=== PATIENT | male | born 1980 | race Caucasian/White ===

== ENCOUNTER → 2021-11-23 14:45 | Outpatient (CLI) | payer BC, SELFPAY ==
--- NOTE | 2021-11-23 14:53 | CT_ITS ---
FINAL REPORT TECHNIQUE: Thin section axial CT images of the facial bones and sinuses were obtained without contrast. Coronal reformatted images were also obtained. This study was performed with techniques to keep radiation doses as low as reasonably achievable, (ALARA). Individualized dose reduction techniques using automated exposure control or adjustment of mA and/or kV according to the patient's size were employed. CLINICAL HISTORY: SINUSITIS,PEREZ, FINDINGS: CT SINUSES There is mild mucosal thickening in the left maxillary sinus and a left ethmoid air cell. No fluid levels are identified. The left ostiomeatal unit has an unremarkable appearance. There is soft tissue of the right maxillary ostium. There is mild left nasal septal deviation. No fracture or acute bony abnormality is identified. IMPRESSION: Mild sinusitis as described. Reviewed, Interpreted and Dictated by Mo Hernandez III, MD Transcribed by Wendy Freed Authenticated by Mo Hernandez III, MD on 11/23/2021 04:14:47 PM [facility]
== END ==
PROVIDERS: PCP Nurse Practitioner Family; Visit Provider Nurse Practitioner Family
DX: R51.9 Headache, unspecified (principal); J32.9 Chronic sinusitis, unspecified
CPT/HCPCS: 70486

== ENCOUNTER 2023-10-12 10:29 | Outpatient (CLI) | payer BC, SELFPAY ==
--- NOTE | 2023-10-12 10:32 | MR_ITS ---
FINAL REPORT CLINICAL HISTORY: SYNCOPE ANS COLLASPE COMPARISON: None FINDINGS: Multiplanar MR imaging of the brain was performed without and with contrast. There is no evidence of intracranial hemorrhage or mass. No abnormal extra-axial fluid collection is seen. The ventricular size is within normal limits. There is no evidence of shift of the midline structures. The posterior fossa and brainstem have an unremarkable appearance. No area of abnormal restricted diffusion is identified. No abnormal contrast enhancement is seen. Normal major vessel vascular flow voids are noted. IMPRESSION: No acute intracranial abnormality identified. Reviewed, Interpreted and Dictated by Kristian Taveras MD Transcribed by Eleonora Curry Authenticated and [facility]
[2023-10-12] MEDS: GADOTERIDOL INJ 17ML SYRINGE 20 ML IV (12:31)
== END 2023-10-12 23:59 ==
PROVIDERS: PCP Nurse Practitioner Family; Visit Provider Nurse Practitioner Family
DX: R55 Syncope and collapse (principal)
CPT/HCPCS: 70553; A9576

== ENCOUNTER 2023-11-23 07:47 | Outpatient (CLI) | payer BC, SELFPAY ==
--- NOTE | 2023-11-23 08:20 | US_ITS ---
FINAL REPORT CLINICAL HISTORY: GERD,DISEASE W/ESOPHAGITIS COMPARISON: None FINDINGS: Sonographic images of the abdomen were obtained. The liver has an unremarkable appearance with normal echogenicity. The gallbladder has an unremarkable appearance without evidence of gallstones. Nonspecific mild gallbladder wall thickening is present. There is no evidence of biliary ductal dilatation. The common hepatic duct measures 3 mm, which is within normal limits. The pancreas is not well-visualized. The spleen size is normal. The right kidney measures 10.4 in length. The left kidney measures 11.8 in length. There is normal renal echogenicity. There is no evidence of hydronephrosis. The aorta has an unremarkable appearance. Limited images of the inferior vena cava are unremarkable. IMPRESSION: Nonspecific gallbladder wall thickening, mild, without evidence of biliary ductal dilatation or gallstones. Pancreas not well-visualized. Reviewed, Interpreted and Dictated by Mo Hernandez III, MD Transcribed by Eleonora Curry Authenticated and [facility]
== END 2023-11-23 23:59 ==
LOC: RAD 07:47
PROVIDERS: PCP Nurse Practitioner Family; Visit Provider Nurse Practitioner Family
DX: R10.9 Unspecified abdominal pain (principal); K21.00 Gastro-esophageal reflux disease with esophagitis, without bleeding
CPT/HCPCS: 76700

== ENCOUNTER 2024-04-10 10:06 | Day surgery (SDC) | payer BC, SELFPAY ==
--- NOTE | 2024-03-26 15:51 | SUR.PREOP ---
Called to confirm appointment. No answer, left voicemail with callback number
[2024-04-08 13:30] VITALS: BMI 28.1
[2024-04-10] VITALS (7 sets, daily range): BP systolic 122–137; BP diastolic 82–87; PULSE 69–101; RESP 18; TEMP 36.5–36.6; O2SAT 96–99; BMI 28.1
--- NOTE | 2024-04-10 12:04 | P.PNANES_ITS ---
[facility] Disclaimer: The information contained in this section may have been updated after the patient was seen, as this information can be updated by other users. Medical History Anxiety History of COVID-19 Migraine Allergies Surgical History History of facial surgery Family History Grandfather Cancer Other Heart disease Social History Smoking Status: Former smoker tobacco type: cigarettes packs per day: 2 smoking status start date: June 2023 years smoked: 25 second hand exposure: Yes alcohol intake: current alcohol intake frequency: a few times a month substance use type: denies use current occupational status: employed Travel in the last 8 weeks: None household members: family housing: house marital status: caffeine: Yes physical activity: walking do you feel safe at home: Yes victim of physical abuse: No victim of emotional abuse: No victim of sexual abuse: No would you like helpful sources: No [facility] Anesthesia Checklist Patient Identification Patient Identification: Arm Band Structural Data Admitted From: Home Planned Operative Procedure/s: EGD/Colonoscopy Consent for Planned Operative Procedure(s) Verified: Yes Verified Documents: Surgical Consent and History and Physical NPO Status Verified Time NPO: 00:00 Additional verifications Anesthesia Reactions: No Airway Assessment Mallampati Score:: Class I C-Spine Mobility Assessed: Yes TMJ Mobility Assessed: Yes Dentition: Good Dentition Neurological Assessment Level of Consciousness: Awake, Alert and Appropriate Anesthesia Plan Anesthesia Risk discussed: Yes Anesthesia Plan: Verified ASA Class: II Anesthesia Type: MAC
--- NOTE | 2024-04-10 12:19 | EXP.ANES.CKL ---
[facility] Disclaimer: The information contained in this section may have been updated after the patient was seen, as this information can be updated by other users. Medical History Anxiety History of COVID-19 Migraine Allergies Surgical History History of facial surgery Family History Grandfather Cancer Other Heart disease Social History Smoking Status: Former smoker tobacco type: cigarettes packs per day: 2 smoking status start date: June 2023 years smoked: 25 second hand exposure: Yes alcohol intake: current alcohol intake frequency: a few times a month substance use type: denies use current occupational status: employed Travel in the last 8 weeks: None household members: family housing: house marital status: caffeine: Yes physical activity: walking do you feel safe at home: Yes victim of physical abuse: No victim of emotional abuse: No victim of sexual abuse: No would you like helpful sources: No [facility] Anesthesia Checklist Patient Identification Patient Identification: Arm Band Structural Data Admitted From: Home Planned Operative Procedure/s: EGD/Colonoscopy Consent for Planned Operative Procedure(s) Verified: Yes Verified Documents: Surgical Consent and History and Physical NPO Status Verified Time NPO: 00:00 Additional verifications Anesthesia Reactions: No Airway Assessment Mallampati Score:: Class II C-Spine Mobility Assessed: Yes TMJ Mobility Assessed: Yes Dentition: Good Dentition Neurological Assessment Level of Consciousness: Awake, Alert and Appropriate Anesthesia Plan Anesthesia Risk discussed: Yes Anesthesia Plan: Verified ASA Class: II Anesthesia Type: MAC
--- NOTE | 2024-04-10 12:38 | HMH.SCOPE ---
Procedure: Date: 04/10/24 Patient Date of :: 1980 Procedure Performed:: EGD Indications:: The patient is a 44-year-old with chronic heartburn and diarrhea Performing Provider:: Erlin Ching MD Referring Provider:: Sandra Villa APRN Sedation:: See RN records Procedure:: The gastroscope was gently passed through the incisoral orifice into the oral cavity and under direct visualization the esophagus was intubated. The endoscope was passed down the esophagus, through the stomach, and into the duodenum. Color, texture, mucosa, and anatomy of the esophagus, stomach, and duodenum were carefully examined with the scope. Findings:: The Z-line was measured at 41 cm. There was a mild distal esophagitis, LA class A, biopsies were obtained with cold forceps for histology from the mid and distal esophagus. There was a small hiatal hernia. There was mild inflammation of the stomach characterized by erythema. Biopsies were obtained with a cold forceps for histology. The duodenum appeared normal. Biopsies were obtained with a cold forceps for histology. Recommendations:: Await pathology results Use PPIs or H2RA medications as needed Follow-up in office with referring provider as previously scheduled Complications:: None Estimated blood obtained (mL): 0 Colonoscopy Component Colonoscopy Component Was a colonoscopy performed during today's procedure?: No
--- NOTE | 2024-04-10 12:41 | HMH.SCOPE ---
Procedure: Date: 04/10/24 Patient Date of :: 1980 Procedure Performed:: Colonoscopy Indications:: The patient is a 44-year-old who presents for colonoscopy evaluation of diarrhea. The patient has had diarrhea symptom for several months. The patient has had intermittent blood per rectum. Performing Provider:: Erlin Ching MD Referring Provider:: Sandra Villa APRN Sedation:: See RN records Procedure:: After placing the patient in the left lateral decubitus position, the colonoscopy was gently inserted into the rectum and under direct visualization advanced to the cecum which was identified by transillumination in the right lower quadrant, identification of the ileocecal valve, appendiceal orifice, and cecal strap. Color, texture, mucosa, and anatomy of the colon were carefully examined with the scope. Findings:: The quality of the bowel preparation was good. The patient tolerated the procedure well. There were patchy areas of colitis in the distal sigmoid colon. There was continuous colitis extending from the distal descending colon to the splenic flexure. This was characterized by erythema and loss of normal vascular pattern, and few scattered erosions. Biopsies were obtained with a cold forceps for histology. The remaining colon appeared normal. The terminal ileum could not be intubated secondary to looping within the sigmoid colon. On retroflexion view of the rectum internal hemorrhoids were noted. Impression: Colitis Recommendations:: Await pathology results Avoid NSAIDs Follow-up in office with referring provider as previously scheduled Complications:: None Estimated blood obtained (mL): 0 Colonoscopy Component Colonoscopy Component Was a colonoscopy performed during today's procedure?: Yes Recommended follow up colonoscopy of at least 10 years?: Yes
== END 2024-04-10 13:10 | disposition home or self-care (01) ==
PROVIDERS: PCP Nurse Practitioner Family; Visit Provider Internal Medicine
PROC: 0DJ08ZZ Inspection of Upper Intestinal Tract, Via Natural or Artificial Opening Endoscopic (ICD-10-PCS; CPT 43235; principal; 2024-04-10 11:30)
DX: R19.7 Diarrhea, unspecified (principal); K21.9 Gastro-esophageal reflux disease without esophagitis; K44.9 Diaphragmatic hernia without obstruction or gangrene
CPT/HCPCS: 43239; 45380; J2704

== ENCOUNTER 2025-02-26 09:17 | Outpatient (CLI) | payer BC, SELFPAY ==
--- OUTSIDE RECORDS SUMMARY | 2025-02-26 09:20 | XMS_ITS | Encounter Summary ---
Author Organization Healthcare Address [address] 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, subsequent encounter (Primary Dx) Social History Tobacco Use Types Packs/Day Years Used Date Smoking Tobacco: Never Assessed Sex and Gender Information Value Date Recorded Sex Assigned at Male 07/13/2023 1:36 PM EDT Legal Sex Male 3:31 PM EDT Gender Identity Male 07/13/2023 1:36 PM EDT Sexual Orientation Not on file documented as of this encounter Plan of Treatment Not on file documented as of this encounter Visit Diagnoses Diagnosis 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
--- OUTSIDE RECORDS SUMMARY | 2025-02-26 09:20 | XMS_ITS | Clinical Summary ---
Author Organization Healthcare Address [address] [place] [address] Care Team Providers Care Porter Head Name Role Phone MessiXimena Jordi MEJÍA Primary Care Provider + [phone] Allergies No known active allergies Medications loratadine (Claritin) 10 MG tablet Take 1 tablet (10 mg) by mouth 1 (one) time each day. Active buPROPion (Wellbutrin) 75 MG tablet Take 50 mg by mouth 2 (two) times a day. Active rosuvastatin (Crestor) 20 MG tablet Take 1 tablet (20 mg) by mouth every night. Active Active Problems Problem Noted Date Diagnosed Date Injury of face 07/07/2023 Family History Medical History Relation Name Comments Anesthesia problems Neg Hx Malig Hyperthermia Neg Hx Social History Tobacco Use Types Packs/Day Years Used Date Smoking Tobacco: Every Day Cigarettes Smokeless Tobacco: Never Tobacco Cessation:Ready to Q uit: Not Asked; Counseling Given: Not Answered Comments:Trying to quit, down to about 10 cigs a day. Smoked about 2 ppd for 25 years. Alcohol Use Standard Drinks/Week Comments Never 0 (1 standard drink = 0.6 oz pur e alcohol) Sex and Gender Information Value Date Recorded Sex Assigned at Male 07/13/2023 1:36 PM EDT Legal Sex Male 3:31 PM EDT Gender Identity Male 07/13/2023 1:36 PM EDT Sexual Orientation Not on file Last Filed Vital Signs Vital Sign Reading Time Taken Comments Blood Pressure 126/84 07/19/2023 10:41 AM EDT Pulse 85 07/19/2023 10:41 AM EDT Temperature 36.7 C (98 F) 07/13/2023 8:00 PM EDT Respiratory Rate 17 07/13/2023 8:45 PM EDT Oxygen Saturation 96% 07/13/2023 8:45 PM EDT Inhaled Oxygen Concentration - - Weight 90.7 kg (200 lb) 07/19/2023 10:41 AM EDT Height 190.5 cm (6' 3 ) 07/19/2023 10:41 AM EDT Body Mass Index 25 07/19/2023 10:41 AM EDT Plan of Treatment Health Maintenance Due Date Last Done Comments [facility]-Depression Screening 1980 [facility]-HIV Screening 1980 [facility]-Hepatitis C Screening 1980 [facility]-/Child/Adol SDOH Screenings 1981 [facility]-Varicella Vaccines (1 of 2 - 13+ 2-dose series) 1994 HPV Vaccines (1 - Male 3-dose series) 1996 [facility]- SDOH Screenings 1999 [facility]-Adult SDOH Screenings 1999 [facility]-DTaP,Tdap,and Td Vaccines (1 - Tdap) 2000 [facility]-Hepatitis B Vaccines (1 of 3 - 19+ 3-dose series) 2000 [id number] Vaccine (4 - 2023- season) 2024 10/24/2022, 05/12/2021, 04/21/2021 [facility]-Influenza Vaccine (Season Ended) 2025 06/28/2023, 10/24/2022 [facility]-Zoster Vaccines (1 of 2) 2031 [facility]-HIB Vaccines Aged Out No longer e ligible based on patient's age to complete this topic [facility]-Hepatitis A Vaccines Aged Out No longer eligible based on patient's age to complete this topic [facility]-IPV Vaccines Aged Out No longer e ligible based on patient's age to complete this topic [facility]-Pneumococcal Vaccine: Pediatrics (0 to 5 Years) and At-Risk Patients (6 to 49 Years) Aged Out No longer eligible b ased on patient's age to complete this topic [facility]-Rotavirus Vaccines Aged Out No lo nger eligible based on patient's age to complete this topic Medical Devices Implanted Type Area Commissary Superintendent Device Identifier Shelf Expiration Date Model / Serial / Lot Plate Matric Orbital Rim Plate 12 Holes 0.5mm - [id number] Implanted:Qty: 1 on 07/13/2023 by Tawanda Lucero MD at [facility] Left: [employer] [id number] 07/13/2024 [id number] / / Plate Matric Orbital Rim Plate 12 Holes 0.7mm - [id number] Implanted:Qty: 1 on 07/13/2023 by Tawanda Lucero MD at [facility] Left: [employer] [id number] / / Plate Matric Oblique L-Pl 3x4 Holes-Left/0.7 mm - [id number] Implanted:Qty: 1 on 07/13/2023 by Tawanda Lucero MD at [facility] Left: [employer] [id number] / / Screw Matrix Self-Drill 5mm - [id number] Implanted:Qty: 13 on 07/13/2023 by Tawanda Lucero MD at [facility] Left: [employer] [id number] .01 / / Screw Matrix Emergency Screw 5mm - [id number] Implanted:Qty: 1 on 07/13/2023 by Tawanda Lucero MD at [facility] Left: [employer] [id number] [id number] .01 / / Explanted Type Area Commissary Superintendent Device Identifier Shelf Expiration Date Model / Serial / Lot Screw Matrix Emergency Screw 5mm - [id number] Explanted:Qty: 1 on 07/13/2023 at [facility] Left: [employer] [id number] .01 / / Insurance JENNY Care Teams Porter Head Relationship Specialty Start Date End Date Ximena Swenson APRN [address] [place] [address] PCP - General 07/07/23
[2025-02-26 09:54] LABS: Basophils % 0.2 % (0.1-2.0); Eosinophils # 0.1 Kmm3 (0.0-0.4); Eosinophils % 0.8 % (0.1-12.0); Hemoglobin 14.7 g/dL (14.1-18.0); Immature Granulocytes # 0.01 10^3uL; Immature Granulocytes % 0.2 %; Lymphocytes # 1.2 K/mm3 (0.7-4.5); Lymphocytes % 19.8 % (10-50); Mean Corpuscular HGB Conc 34.2 g/dL (31.8-35.4); Mean Corpuscular Hemoglobin 31.3 pg (27.0-31.2); Mean Corpuscular Volume 91.5 fl (80-94); Mean Platelet Volume 10.3 fl (7.4-10.4); Monocytes # 0.5 K/mm3 (0.1-1.0); Monocytes % 8.4 % (1.7-9.3); Neutrophils # 4.3 K/mm3 (1.8-7.8); Neutrophils % 70.6 % (37.0-80.0); Nucleated Red Blood Cells # 0 10^3/uL; Nucleated Red Blood Cells % 0 %; Platelet Count 213 K/mm3 (142-424); Red Cell Distribution Width 13.2 % (11.5-17.5); Red Cell Distribution Width-SD 44.1 fL; White Blood Count 6.1 K/mm3 (4.8-10.8)
[2025-02-26 10:36] LABS: Alanine Aminotransferase 22 U/L (12-78); Albumin Level 4.6 g/dl (3.5-5.0); Albumin/Globulin Ratio 1.8 (1.1-1.8); Alkaline Phosphatase 71 U/L (38-126); Anion Gap 10.3 mEq/L (5-15); Aspartate Amino Transferase 28 U/L (17-59); Bilirubin,Total 0.7 mg/dl (0.2-1.3); Blood Urea Nitrogen 17 mg/dl (9-20); Calcium 9.4 mg/dl (8.4-10.2); Carbon Dioxide 26 mmol/L (22.0-30.0); Chloride 106 mmol/L (98-107); Estimated Glomerular Filt Rate 92 ml/min (>60); GFR (African American) 111 ML/MIN (>60); Globulin 2.5 g/dL (1.3-3.2); Glucose 105 mg/dl (74-100); Potassium 4.3 mmoL/L (3.5-5.1); Sodium 138 mmol/L (136-145); Total Protein,Serum 7.1 g/dl (6.3-8.2)
[2025-02-26 10:48] LABS: C-Reactive Protein < 0.3 mg/L (0-4)
[2025-02-26 10:55] LABS: 25-OH Vitamin D, Total 43.4 ng/mL (30-100)
[2025-02-26 10:58] LABS: Erythrocyte Sedimentation Rate 12 mm/hr (0-15)
[2025-02-26 11:11] LABS: Ferritin 8.42 ng/ml (17.9-464)
[2025-02-26 11:24] LABS: Iron 71 ug/dL (49-181)
[2025-02-26 11:26] LABS: Vitamin B12 757 pg/mL (239-931)
[2025-02-26 11:33] LABS: Total Iron Binding Capacity 398 ug/dL (261-462)
== END 2025-02-26 23:59 | disposition home or self-care (01) ==
LOC: LAB 09:17
PROVIDERS: PCP Nurse Practitioner Family; Visit Provider Nurse Practitioner Family
DX: K50.911 Crohn's disease, unspecified, with rectal bleeding (principal)
CPT/HCPCS: 36415; 80053; 82306; 82607; 82728; 83540; 83550; 85025; 85651; 86140; 86256; 86671

== ENCOUNTER 2025-02-28 16:08 | Outpatient (CLI) | payer BC, SELFPAY ==
--- OUTSIDE RECORDS SUMMARY | 2025-02-28 16:10 | XMS_ITS | Encounter Summary ---
Author Organization Healthcare Address [address] [place] [address] Care Team Providers Care Ground Crew Supervisor Name Role Phone Ximena Swenson APRN Primary Care Provider + Encounter Details Date Type Department Care Team (Late st Contact Info) Description 06/27/2023 Community Orders Community Practice [address] [place] [address] Ximena Swenson APRN [address] [phone] (Fax) Closed fracture of maxillary sinus with [...] Primary documented in this encounter Care Teams Ground Crew Supervisor Relationship Specialty Start Date End Date Ximena Swenson APRN [address] [place] [address] (Fax) PCP - General 07/07/23 documented as of this encounter
--- OUTSIDE RECORDS SUMMARY | 2025-02-28 16:10 | XMS_ITS | Data Portability ---
Author Organization [facility] LAURITA ClarkS [place] Address [address] [place] [address] Care Team Providers Care News Writer Name Role Phone SARAH PIERCE Primary Care Provider [phone] YULIET DIALLO Repair Tech Assessment No assessment recorded. 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 Referral None recorded. Procedures None recorded. Surgeries None recorded. Imaging holter monitor 2022 023 [email or web address] [facility] [address], [facility], [place], [address], 09/15/2023 08:58:25 US, carotid artery 2022 023 [email or web address] [facility] Cardiology [address], [place], [address], 09/28/2023 07:49:58 US, doppler echocardi ogram 2022 023 [email or web address] [facility] [address] , [place], [address], 09/21/2023 07:55:52 Medication Orders rizatript an 10 mg disintegr ating tablet 2022 023 JAYNE [facility]walker [facility], [address], [address], 08/07/2023 15:13:26 Patient TargetsNo targets recorded. Patient Instructions Encounter Date Encounter Id Patient Instructions Last Modified By Organization Details Last Modified Time 08/07/[id number], tripta n therapy, cardiology referral petey Not available 08/07/2023 15:12:23 09/14/2023 [id number] [facility] Patient Instructions Not available 09/14/2023 10:28:39 body mass index: care instructions Not available 09/14/2023 10:31:53 Heart Station Patient Instructions Not available 09/14/2023 10:28:39 Follow up in 2 months, sooner with questions/concern s or abnormalities noted on above testing. Not available 09/14/2023 17:58:49 11/15/2023 [id number] body mass index: care instructions Not available 11/15/2023 11:32:21 high cholesterol : care instructions Not available 11/15/2023 11:32:21 Follow up in 1 year with EKG/Echo Not available 11/15/2023 11:32:20 Reason for Referral None Reported. Results Created Date Observation Date Name Description Value Unit Range Abnormal Flag Note LastModifiedBy Organization Detail LastModifiedTime 08/14/2008/14/2023 CT, sinus es, w/o contr ast [place] [facility] [address] [facility], [address] [address] Kyle benitez Name: ROSAURA benitez : 981 Kyle benitez 46 Orderi ng Provid er: JOY Y V OSETIN SALOMÓN EXAM DATE: 2022 EXAM: CT CONE BEAM SINUS W/O CONTRA ST HISTOR Y: 43-yea r-old male with chroni c sinusi tis. COMPAR DARIUSZ: None. TECHNI QUE: Cone beam images were obtain ed of the sinuse s, with 1 mm and 3 mm axial, maldonado l, and sagitt al recons tructi on images . FINDIN GS: Maxill yolanda sinuse s: There is a 1.7 cm mucous retent ion cyst along the floor of the left maxill yolanda sinus, and mild to modera te mucosa l thicke catracho along the roof of the left maxill yolanda sinus. There is a small mucous retent ion cyst or focal mucosa l thicke catracho adjace nt to the left maxill yolanda antrum . There are postsu rgical change s with a plate along the latera l wall the left maxill yolanda sinus which may indica te a prior fractu re fixati on. There is focal mucosa l thicke catracho or a small mucous retent ion cyst adjace nt to the right maxill yolanda antrum . Ostia: The left and right osteom eatal units are obstru cted. There are patent second yolanda antra along the medial wall the maxill yolanda sinuse s. The fronta l and spheno id sinus ostia are patent . Ethmoi d sinuse s: There is focal mucosa l thicke catracho or small mucous retent ion cyst in the right ethmoi d sinus. The left ethmoi d sinus is clear. Fronta l sinuse s: The fronta l sinuse s are clear. Spheno id sinuse s: The spheno id sinuse s appear clear. Nasal septum and nasal passag es: The nasal septum is deviat ed to the left inferi frandy and deviat ed to the right anteri frandy. There is modera te mucosa l hypert rophy of the nasal turbin ates. The visual ized mastoi d air cells appear normal . There are mild to modera te degene rative change s in the tempor omandi bular joints . IMPRES CELIA: 1. There is focal mucosa l thicke catracho or small mucous retent ion cyst adjace nt to the maxill yolanda antra bilate rally with obstru ction of the ostiom eatal units. There is also mild to modera te mucosa l thicke catracho and a mucous retent ion cyst in the left maxill yolanda sinus, and second yolanda ostia along the medial wall the maxill yolanda sinuse s. 2. There is nasal septal deviat ion to the left and right, and modera te mucosa l hypert rophy of the nasal turbin ates. 3. There is focal mucosa l thicke catracho or a small mucous retent ion cyst in the right ethmoi d sinus. Interp reted By: David irizarry MD Electr onical ly Signed By: David irizarry MD on 2022 10:57 AM [email or web address] [facility] [address] [facility] [address], [place], [address], 08/15/2023 09:52:00 09/15/20 23 09/14/2023 elect rocar diogr am No observ ation record ed. BARCODE Not Available 2022 11:42:47 10/05/19 24 10/05/2023 gatito r monit or No observ ation record ed. JAYNE Not Available 2023 15:01:35 10/30/19 24 10/30/2023 exerc ise stres s test No observ ation record ed. JAYNE Not Available 2023 06:43:10 10/30/19 24 10/30/2023 US, doppl er echoc ardio gram, w/ color flow No observ ation record ed. JAYNE [facility] [address], [place], [address], 10/31/2023 06:51:51 10/30/19 24 10/30/2023 cardi ac stres s test No observ ation record ed. JAYNE Hopkins MD [address] [place] [address], [place], [address], 10/31/2023 06:48:20 01/16/20 25 01/15/2025 US, doppl er echoc ardio gram, w/ color flow No observ ation record ed. JAYNE [facility] [address], [place], [address], 01/23/2025 22:45:26 Result Notes Documentation Provider Name and Address Organization Details Recorded Time Ct, Sinuses, W/o Contrast : [place] [facility] [address] [facility], [address] [place] [address] Patient Name: MAUREEN HSU Patient : [id number] Patient Ordering Provider: CARO BANKS EXAM DATE: 08/14/2023 EXAM: CT CONE BEAM SINUS W/O CONTRAST HISTORY: 43-year-old male with chronic sinusitis. COMPARISON: None. TECHNIQUE: Cone beam images were obtained of the sinuses, with 1 mm and 3 mm axial, coronal, and sagittal reconstruction images. FINDINGS: Maxillary sinuses: There is a 1.7 cm mucous retention cyst along the floor of the left maxillary sinus, and mild to moderate mucosal thickening along the roof of the left maxillary sinus. There is a small mucous retention cyst or focal mucosal thickening adjacent to the left maxillary antrum. There are postsurgical changes with a plate along the lateral wall the left maxillary sinus which may indicate a prior fracture fixation. There is focal mucosal thickening or a small mucous retention cyst adjacent to the right maxillary antrum. Ostia: The left and right osteomeatal units are obstructed. There are patent secondary antra along the medial wall the maxillary sinuses. The frontal and sphenoid sinus ostia are patent. Ethmoid sinuses: There is focal mucosal thickening or small mucous retention cyst in the right ethmoid sinus. The left ethmoid sinus is clear. Frontal sinuses: The frontal sinuses are clear. Sphenoid sinuses: The sphenoid sinuses appear clear. Nasal septum and nasal passages: The nasal septum is deviated to the left inferiorly and deviated to the right anteriorly. There is moderate mucosal hypertrophy of the nasal turbinates. The visualized mastoid air cells appear normal. There are mild to moderate degenerative changes in the temporomandibular joints. IMPRESSION: 1. There is focal mucosal thickening or small mucous retention cyst adjacent to the maxillary antra bilaterally with obstruction of the ostiomeatal units. There is also mild to moderate mucosal thickening and a mucous retention cyst in the left maxillary sinus, and secondary ostia along the medial wall the maxillary sinuses. 2. There is nasal septal deviation to the left and right, and moderate mucosal hypertrophy of the nasal turbinates. 3. There is focal mucosal thickening or a small mucous retention cyst in the right ethmoid sinus. Interpreted By: Kai Yanez MD [facility] 08/15/2023 09:52:00 Problems No Known Problems Procedures Surgical History Date Name Laterality Status Provider Name and Address Organization Details Recorded Time 10/30/19 24 Stress Test - Exercise Treadmill completed DANNY HOPKINS MD [address] [place], [address], [facility] 10/30/2023 19:45:43 09/14/20 23 EKG completed YULIET DIALLO APRN [address] [place], [address], [facility] 09/14/2023 10:06:49 07/13/20 reconstruction procedure completed Yael Pinon [facility] 09/14/2023 09:26:52 Imaging Results None recorded. Procedure Notes None recorded. Medical Equipment None Reported. Allergies No known drug allergies Medications Name Sig Start Date Stop Date Status Note LastModified by Organization Details LastModified Time doxycycline hyclate 100 mg capsule TAKE 1 CAPSULE BY MOUTH ONCE DAILY FOR MALARIA PROPHYLAX IS active Not Available Not Available No t Available clindamycin HCl 300 mg capsule 08/07 completed Not Available Not Available Not Available hydrocodone 5 mg-acetamin ophen 325 mg tablet 08/07 completed Not Available Not Available Not Available ondansetron HCl 4 mg tablet 08/07 completed Not Available Not Available Not Available Vitamin B-12 500 mcg tablet TAKE 1 TABLET BY MOUTH ONCE DAILY active Not Available Not Available No t Available ciprofloxac in 500 mg tablet TAKE 1 TABLET BY MOUTH EVERY 12 HOURS active Not Available Not Available No t Available omeprazole 40 mg capsule,del ayed release TAKE 1 CAPSULE BY MOUTH ONCE DAILY active Not Available Not Available No t Available triamcinolo ne acetonide 0.1 % topical cream APPLY THIN LAYER OF CREAM EXTERNALL Y TO AFFECTED AREA TWICE DAILY 08/07 completed Not Available Not Available Not Available prednisone 10 mg tablets in a dose pack TAKE 6 TABLETS ON DAY 1 THEN TAKE 5 TABLETS ON DAY 2 THEN TAKE 4 TABLETS ON DAY 3 THEN TAKE 3 TABLETS ON DAY 4 THEN TAKE 2 TABLETS ON DAY 5 THEN TAKE 1 TABLET ON DAY 6. TAKE ALL DOSES WITH FOOD. 09/14 completed Not Available Not Available Not Available rizatriptan 10 mg disintegrat ing tablet PLACE 1 TABLET BY TRANSLING UAL ROUTE ON TOP OF TONGUE, ALLOW TO DISSOLVE THEN SWALLOW ONCE, MAY REPEAT EVERY 2 HOURS (MAX OF 30MG IN 24 HOURS) active Not Available Not Available No t Available erythromyci n 5 mg/gram (0.5 %) eye ointment 08/07 completed Not Available Not Available Not Available nicotine 21 mg/24 hr daily transdermal patch APPLY 1 PATCH TRANSDERM ALLY ONCE DAILY AND REMOVE AT BEDTIME 09/14 completed Not Available Not Available Not Available mupirocin 2 % topical ointment APPLY A SMALL AMOUNT OF OINTMENT TOPICALLY TO AFFECTED AREA TWICE DAILY active Not Available Not Available No t Available ondansetron 4 mg disintegrat ing tablet DISSOLVE 1 TABLET IN MOUTH EVERY 8 HOURS ON TOP OF THE TONGUE WHERE THEY WILL DISSOLVE, THEN SWALLOW active Not Available Not Available No t Available fluticasone propionate 50 mcg/actuati on nasal spray,suspe nsion USE 1 SPRAY(S) IN EACH NOSTRIL ONCE DAILY active Not Available Not Available No t Available loratadine 10 mg tablet TAKE 1 TABLET BY MOUTH ONCE DAILY active Not Available Not Available No t Available amoxicillin 500 mg-potassiu m clavulanate 125 mg tablet TAKE 1 TABLET BY MOUTH EVERY 12 HOURS active Not Available Not Available No t Available esomeprazol e magnesium 20 mg capsule,del ayed release TAKE ONE CAPSULE BY MOUTH ONCE DAILY AT LEAST 1 HOUR BEFORE A MEAL, SWALLOW WHOLE DO NOT CRUSH OR CHEW GRANULES 11/15 completed Not Available Not Available Not Available escitalopra m 10 mg tablet TAKE 1 TABLET BY MOUTH ONCE DAILY active Not Available Not Available No t Available rosuvastati n 20 mg tablet TAKE 1 TABLET BY MOUTH ONCE DAILY active Not Available Not Available No t Available chlorhexidi ne gluconate 0.12 % mouthwash 08/07 completed Not Available Not Available Not Available mesalamine 1.2 gram tablet,brandon yed release TAKE 1 TABLET BY MOUTH 4 TIMES DAILY FOR 8 WEEKS active Not Available Not Available No t Available Gavilyte-C 240 gram-22.72 gram-6.72 gram-5.84 gram oral solution TAKE 240 ML BY MOUTH EVERY 10 MINUTES FOR BOWEL PREP; FOLLOW MAILED INSTRUCTI ONS active Not Available Not Available No t Available bupropion HCl 150 mg tablet,12 hr sustained-r elease(smok ing deterrent) TAKE 1 TABLET BY MOUTH TWICE DAILY 11/15 completed Not Available Not Available Not Available Vitals Date Recorded Body height Body mass index (BMI) Body weight Heart rate Oxygen saturation Oxygen saturation in Arterial blood by Pulse oximetry Respiratory rate Systolic blood pressure Diastolic blood pressure Provider Name and Address Organization Details Last Updated DateTime 4 190.5 cm 27 kg/m2 98175.9 5 g 71 /min 98 % 98 % 18 /min 120 mm[Hg] 80 mm[Hg] Terri Kayla [facility] 4 11:08:48 Date Recorded Body temperature Body height Body mass index (BMI) Body weight Systolic blood pressure Diastolic blood pressure Provider Name and Address Organization Details Last Updated DateTime 3 98.2 [degF] 190.5 cm 24.4 kg/m2 09220.2 1 g 134 mm[Hg] 90 mm[Hg] Tony Alvarado [facility] 3 14:39:37 Date Recorded Body height Body mass index (BMI) Body weight Respiratory rate Oxygen saturation Oxygen saturation in Arterial blood by Pulse oximetry Heart rate Systolic blood pressure Diastolic blood pressure Provider Name and Address Organization Details Last Updated DateTime 3 190.5 cm 26.2 kg/m2 90411.9 1 g 16 /min 98 % 98 % 75 /min 118 mm[Hg] 80 mm[Hg] Yaellorri Pinon [facility] 3 09:31:48 Social History Question Answer Notes LastModified by Organizat ion Details LastModified Time Tobacco Smoking Status Former Smoker Yael Iz [facility] 09/14/2023 09:26:04 What Was The Date Of Your Most Recent Tobacco Screening? 11/15/2023 [email or web address] Information not available 11/15/2023 Sex: Male Functional Status Question Answer Note LastModified by Organization D etails LastModified Time Do you or have you ever used any other forms of tobacco or nicotine? No [email or web address] Information not available 09/14/2023 Mental Status None recorded. Family History Nothing Reported. Medical History No medical history recorded. Past Encounters Encounter ID Performer Location Encounter Start Date Encounter Closed Date Diagnosis/Indication Diagnosis SNOMED-CT Code Diagnosis ICD10 Code Diagnosis Note [id number] CARO BANKS MD [place] [facility] [place] [address] [facility] [address] [address] [place] [address] 08/07/2023 14:15:42 08/07/2023 16:19:35 Migraine 86109866 G43.909 Sinus and vestibular Syncope 041686887 R55 E patch cardiology referral Bradycardia 55634136 R00 .1 Per above Chronic sinusitis 445005 00 J32.9 [id number] YULIET DIALLO, LAND SURVEYING SURVEY WORKER CARDIOLOG Y [address] [place] [address] 09/14/2023 09:12:00 09/15/2023 04:08:21 Syncope 823274942 R55 Patient with an episode of syncope as noted in HPI. He has had multiple episodes of near-synco pe without etiology.W ill proceed with syncope workup to include holter study to r/o arrythmia, high grade heart block.Colbert tid duplex to r/o carotid artery disease.Re cent labs done per PCP, normal per report, including thyroid function. Intermitte nt palpitations 249762782 R00.2 EKG today NSR with sinus arrythmia. Holter pending. Discussed addition of OTC mg supplement to see if palps improve. Family his tory of premature coronary heart disease 118987981 Z82.49 Brother with Hx of CABG at 45.Father with Hx of coronary disease. Dyspnea on exertion 6084 5006 R06.09 Stress echocardio gram will be obtained d/t FRANCO, syncope, near-synco pe. Strong family history of CAD, as detailed above.He has additional RF of extensive tobacco abuse, prediabete s, HLP. Hyperlipidemia 13741184 E78.5 Currently on statin, PCP managing Body mass index 25-29 - overweight 826445093 Z68.26 Discussed importance of maintainin g healthy weight, increasing aerobic exercise. Goal 120-150 min per week. [id number] VA BRANDT MD [facility] [address] [place] [address] 09/14/2023 10:59:34 09/14/2023 10:59:49 [id number] DANNY HOPKINS MD HEART STATION [address] [place] [address] 10/30/2023 09:37:34 10/31/2023 16:16:39 [id number] YULIETStephania DIALLO APRN CARDIOLOG Y EAST [address] [place] [address] ,[address] [place] [address] 11/15/2023 09:30:44 11/15/2023 12:02:03 Syncope 016071800 R55 Patient with an episode of syncope as noted in HPI. He has had multiple episodes of near-synco pe without etiology.C ardiac workup to date, unremarkab le other than SVT.He has had no recurrence . He will follow up in 1 year with repeat echo, sooner with recurrence of symptoms. Family his tory of premature coronary heart disease [id number] Z82.49 Brother with Hx of CABG at 45.Father with Hx of coronary disease.GX T was normal Hyperlipidemia 65210359 E78.5 Currently on statin, PCP managing Body mass index 25-29 - overweight 866588399 Z68.26 Discussed importance of maintainin g healthy weight, increasing aerobic exercise. Goal 120-150 min per week. Aortic liu t dilatation 662291292 I77.810 Repeat echo in 1 year. Supraventr icular tachycardia 7381039 I47.10 Brief run SVT, 15 beats during holter monitoring period, asymptomat icDiscusse d BB, he would like to avoid Health Concerns Section Related Observation LastModified by Organization Detai ls LastModified Time None Recorded Concern Status LastModified by Organization Details LastModified Time None Recorded Advance Directives Directive None Recorded Payers Insurance Date Sequence Insurance Name Policy Number Policy Richardson Covered Member ID Richardson Member ID Guarantor Name 01/16/2025 1 [place] [id number] Marly Hsu [id number] Maureen Hsu Notes Date Note Type Note Provider Name and Address Organization Details Recorded Time 3 text/html Maureen comes in today for consultation at the request of Dr. Matos for an evaluation of sinus issues. He has a history of sinus migraine as well as a recent syncopal episode in which he fell and had a left zygoma fracture repair by Dr. Lucero at the [facility] 3 weeks ago. Initial follow-up was unremarkable. CARO BANKS MD [address], [place], [address], [facility] 08/07/2023 15:13:25 3 text/html Mr. Hsu is a pleasant 43yo male here for new patient evaluation, seen in consultation at the request of Dr. Solano for bradycardia, syncope. Hx of anxiety, HLP, seasonal allergies, GERD, migraine PEREZ.60 pack year history of smoking, quit 07/13/2023. notes this has caused increase anxiety as well.Taking wellbutrin, notes he felt as that was not helping with smoking, he went back on wellbutrin d/t anxiety. Maternal Grandfather had PPM, multiple AMIs started at age 50Father with HLP, not in good health, multiple AMIs, but did not take care of himself. Was an alcoholic.Older brother with Hx of CABG at 45. Hx of recurrent syncope/near-syncope. 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 Was driving, he stopped to get out of car, go in to bathroom. Notes that all of a sudden, felt clammy and hot. Notes all energy drained from him, vision got blurry, fell face first into concrete.Son was with him, may have been out 20 seconds. Did have breakfast, but notes coffee and granola bar.Went to ER, suffered facial fractures, subsequently had surgery. Second week of July, he almost passed out in congregational. He is Gnosticism, up and down through services. Notes no correlation to rising from seated position. No correlation to food intake. No pattern to date. Has 16 oz coffee in AM. Notes he is not the best about drinking Stays busy on farm, notes water intake not good. Trying to do better with this. Has not related episodes to anxiety. He has had CP that was correlated to one episode, felt as though heart sped up. had some pressure.Has not had true syncope but one time. Has had three episode of near-syncope. Has had more fatigue.Notes he has problems with breathing at time. Notes he can be doing easy activity, will loose breath at times. Gets close to 10,000 steps per day.Has lost some weight since fall, now coming back up.No CP reported.No orthopnea, PND, LE edema. YULIET DIALLO, LAND SURVEYING SURVEY WORKER [address] [place], [address], [facility] 09/14/2023 18:00:04 4 text/html Mr. Hsu is a pleasant 43yo male initially seen in consultation at the request of Dr. Solano for bradycardia, syncope 08/2023. Hx of anxiety, HLP, seasonal allergies, GERD, migraine PEREZ.60 pack year history of smoking, quit 07/13/2023. notes this has caused increase anxiety as well.Taking wellbutrin, notes he felt as that was not helping with smoking, he went back on wellbutrin d/t anxiety. Maternal Grandfather had PPM, multiple AMIs started at age 50Father with HLP, not in good health, multiple AMIs, but did not take care of himself. Was an alcoholic.Older brother with Hx of CABG at 45. Hx of recurrent syncope/near-syncope. 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 Was driving, he stopped to get out of car, go in to bathroom. Notes that all of a sudden, felt clammy and hot. Notes all energy drained from him, vision got blurry, fell face first into concrete.Son was with him, may have been out 20 seconds. Did have breakfast, but notes coffee and granola bar.Went to ER, suffered facial fractures, subsequently had surgery. Second week of July, he almost passed out in congregational. He is Gnosticism, up and down through services. Notes no correlation to rising from seated position. No correlation to food intake. No pattern to date. GXT done 10/30/2023 - normalEchocardiogram unremarkable other than mild dilation of aorta/IVCHolter done 10/05/2023 showed one brief episode of SVT.Insurance would not cover a carotid duplex Here today for follow up.He is doing well.No episodes of syncope, near-syncope.No orhtopnea, PND, LE edema.No CP, SOA.Has fatigue at times, notes muscles ache for no reason.Having diarrhea x's 4-5 weeks. Has been referred to GI. YULIET DIALLO, LAND SURVEYING SURVEY WORKER [address] [place], [address], [facility] 11/15/2023 11:32:41
--- OUTSIDE RECORDS SUMMARY | 2025-02-28 16:10 | XMS_ITS | Clinical Summary ---
Author Organization Healthcare Address [address] [place] [address] Care Team Providers Care Joy Operator Helper Name Role Phone MessiXimena Jordi MEJÍA Primary Care Provider + [phone] Allergies No known active allergies Medications loratadine [...] of 3 - 19+ 3-dose series) 2000 RDR-IDTEH-70 Vaccine (4 - 2023- season) 2024 10/24/2022, [...] this topic Medical Devices Implanted Type Area Sixth Grade Teacher Device Identifier Shelf Expiration Date Model / Serial / Lot Plate Matric Orbital Rim Plate 12 Holes 0.5mm - [id number] Implanted:Qty: 1 on 07/13/2023 by Tawanda Lucero MD at [facility] Left: [employer] [id number] 07/13/2024 [id number] / / Plate Matric Orbital Rim Plate 12 Holes 0.7mm - [id number] Implanted:Qty: 1 on 07/13/2023 by Tawanda Lucero MD at [facility] Left: [employer] [id number] / / Plate Matric Oblique L-Pl 3x4 Holes-Left/0.7 mm - [id number] Implanted:Qty: 1 on 07/13/2023 by Tawanda Lucero MD at [facility] Left: [employer] [id number] 503.355 / / Screw Matrix Self-Drill 5mm - [id number] Implanted:Qty: 13 on 07/13/2023 by Tawanda Lucero MD at [facility] Left: [employer] [id number] 503.225 .01 / / Screw Matrix Emergency Screw 5mm - [id number] Implanted:Qty: 1 on 07/13/2023 by Tawanda Lucero MD at [facility] Left: [employer] [id number] 503.235 .01 / / Explanted Type Area Sixth Grade Teacher Device Identifier Shelf Expiration Date Model / Serial / Lot Screw Matrix Emergency Screw 5mm - [id number] Explanted:Qty: 1 on 07/13/2023 at [facility] Left: [employer] [id number] 503.235 .01 / / Insurance JENNY Care Teams Joy Operator Helper Relationship Specialty Start Date End Date Ximena Swenson APRN [address] [place] [address] PCP - General 07/07/23
[2025-03-04 08:12] LABS: Calprotectin, Fecal 1450 ug/g (0-120)
== END 2025-02-28 23:59 | disposition home or self-care (01) ==
LOC: LAB.DROPOF 16:08
PROVIDERS: PCP Nurse Practitioner Family; Visit Provider Nurse Practitioner Family
DX: K50.911 Crohn's disease, unspecified, with rectal bleeding (principal)
CPT/HCPCS: 83993

== ENCOUNTER 2025-05-21 09:56 | Day surgery (SDC) | payer BC, SELFPAY ==
--- NOTE | 2025-05-20 10:45 | EXP.HP ---
History of Present Illness *Admission Date: 05/21/25 *History of present illness: Mr. Bishop is a 45-year-old gentleman who is here for diagnostic colonoscopy. The patient has had some bowel urgency and blood in his stool. He had a fecal calprotectin on 02/28/2025 that was 1450. He did have an elevated p-ANCA (1: 160). He also had an elevated ASCA IgA antibody of 25.1. He improved with prednisone. He had a colonoscopy with Dr. Ching that showed mildly active regional colitis with skip areas. Sandra Villa placed him on mesalamine for 6 months. He did well and weaned off of this. He has had mucousy stools, urgency and some bowel movements that are bloody. The examination is deemed medically necessary for diagnostic colonoscopy. The patient has been seen, interviewed and examined prior to the procedure by both myself and the anesthesia provider. [facility] Disclaimer: The information contained in this section may have been updated after the patient was seen, as this information can be updated by other users. Medical History Heartburn Colitis Anxiety History of COVID-19 Migraine Allergies Surgical History History of facial surgery Family History Grandfather Cancer Other Heart disease Social History Smoking Status: Former smoker tobacco type: cigarettes packs per day: 2 smoking status start date: June 2023 years smoked: 25 second hand exposure: Yes alcohol intake: current alcohol intake frequency: a few times a month substance use type: denies use current occupational status: employed Travel in the last 8 weeks?: None household members: family housing: house marital status: caffeine: Yes physical activity: walking do you feel safe at home: Yes victim of physical abuse: No victim of emotional abuse: No victim of sexual abuse: No would you like helpful sources: No Have you lived/traveled outside US in past 30 days?: No Contact w/someone who lives/traveled outside US past 30 days?: No Exposure to someone with infectious disease in past 14 days?: No Do you have a fever (greater than 100.4 F or 38 C)?: No Have you tested positive for COVID-19?: No Exposed to someone with COVID-19 in past 14 days?: No Do you have a sore throat?: No Do you have a cough?: No Do you have any weakness?: No Are you experiencing any nausea/vomitting?: No Do you have any diarrhea?: No Are you experiencing any unusual bleeding?: No Do you have any muscle aches/pain?: No Do you have any abdominal pain?: No Are you experiencing loss of taste or smell?: No Other Medical History Have you received the Pneumonia Vaccine: No Review of Systems Review of Systems Review of systems (narrative): Negative *Cardiovascular Comments: Negative *Gastrointestinal Comments: Negative *Genitourinary Comments: Negative *Musculoskeletal Comments: Negative *Neurologic Comments: Negative Meds Home Medications and Allergies Home Medications ?Medication ?Instructions ?Recorded ?Confirmed ?Type escitalopram oxalate 10 mg tablet 10 mg PO DAILY 12/29/23 05/21/25 History loratadine 10 mg tablet (Claritin) 10 mg PO DAILY 12/29/23 05/21/25 History omeprazole 40 mg capsule,delayed 40 mg PO DAILY #90 caps 10/07/24 05/21/25 Rx release rosuvastatin 20 mg tablet 20 mg PO DAILY 10/07/24 05/21/25 History sodium,potassium,mag sulfates 17.5 See Rx Instructions PO .COMPLEX 05/07/25 Rx gram-3.13 gram-1.6 gram oral soln #354 mL (Suprep Bowel Prep Kit) mesalamine 1.2 gram tablet,delayed 2.4 g PO BID 05/21/25 05/21/25 History release (Lialda) New Prescriptions to Start Prescriptions: Allergies Allergy/AdvReac Type Severity Reaction Status Date / Time No Known Allergies Allergy Verified 05/21/25 10:14 Exam *Routine HEENT Exam Head: Present normocephalic Eye: Present EOMI and PERRL ENT: Present mucous membranes moist *Routine Neck Exam Neck: Present supple *Routine Respiratory Exam Respiratory: Present CTA bilaterally *Routine Cardiovascular Exam Cardiovascular: Present RRR *Routine Abdominal Exam Abdominal: Present soft and normoactive bowel sounds; Absent tenderness *Routine Rectal Exam Rectal:: deferred *Routine Genitalia Exam Genitalia:: deferred *Routine Extremities Exam Extremities: Absent cyanosis, clubbing or edema *Routine Skin Exam Skin: Present warm; Absent rash *Routine Neurological Exam Neurological: Present alert and oriented X3 Assessment and Plan *Assessment and plan (1) Regional colitis: Status: Acute Category: Medical Code(s): K50.10 - Crohn's disease of large intestine without complications (2) Fecal urgency: Status: Acute Category: Medical Code(s): R15.2 - Fecal urgency (3) Bloody stools: Status: Acute Category: Medical Code(s): K92.1 - Melena (4) Mucus in stool: Status: Acute Category: Medical Code(s): R19.5 - Other fecal abnormalities (5) Elevated fecal calprotectin: Status: Acute Category: Medical Code(s): R19.5 - Other fecal abnormalities Plan A/P: 1. Probable Crohn's disease with regional colitis, urgency, bloody and mucousy stools with elevated fecal calprotectin is the preprocedural diagnosis. Diagnostic colonoscopy performed to assess and determine severity. The patient will be anesthetized/sedated using MAC sedation. The patient has been seen and examined. Cardiac and lung assessment prior to the examination is stable. Proceed with planned diagnostic colonoscopy.
[2025-05-21 10:16] VITALS: BP 117/67; PULSE 83; RESP 18; TEMP 36.4; O2SAT 100; BMI 26.2
[2025-05-21] MEDS: LACTATED RINGERS 1000ML 1,000 ML 50 ML IV (10:27)
--- NOTE | 2025-05-21 10:36 | EXP.ANES.CKL ---
[facility] Disclaimer: The information contained in this section may have been updated after the patient was seen, as this information can be updated by other users. Medical History Heartburn Colitis Anxiety History of COVID-19 Migraine Allergies Surgical History History of facial surgery Family History Grandfather Cancer Other Heart disease Social History Smoking Status: Former smoker tobacco type: cigarettes packs per day: 2 smoking status start date: June 2023 years smoked: 25 second hand exposure: Yes alcohol intake: current alcohol intake frequency: a few times a month substance use type: denies use current occupational status: employed Travel in the last 8 weeks?: None household members: family housing: house marital status: caffeine: Yes physical activity: walking do you feel safe at home: Yes victim of physical abuse: No victim of emotional abuse: No victim of sexual abuse: No would you like helpful sources: No Have you lived/traveled outside US in past 30 days?: No Contact w/someone who lives/traveled outside US past 30 days?: No Exposure to someone with infectious disease in past 14 days?: No Do you have a fever (greater than 100.4 F or 38 C)?: No Have you tested positive for COVID-19?: No Exposed to someone with COVID-19 in past 14 days?: No Do you have a sore throat?: No Do you have a cough?: No Do you have any weakness?: No Are you experiencing any nausea/vomitting?: No Do you have any diarrhea?: No Are you experiencing any unusual bleeding?: No Do you have any muscle aches/pain?: No Do you have any abdominal pain?: No Are you experiencing loss of taste or smell?: No [facility] Anesthesia Checklist Patient Identification Patient Identification: Arm Band and Verbal (Name & ) Structural Data Admitted From: Home Planned Operative Procedure/s: Colonscopy Consent for Planned Operative Procedure(s) Verified: Yes Verified Documents: Surgical Consent and History and Physical NPO Status Verified Time NPO: 00:00 Additional verifications Anesthesia Reactions: No Previous Colonoscopy: Yes Airway Assessment Mallampati Score:: Class II Dentition: Good Dentition Neurological Assessment Level of Consciousness: Awake, Alert and Appropriate Hx Seizures: No Numbness or tingling in extremities: No Anesthesia Plan Anesthesia Risk discussed: Yes ASA Class: II Anesthesia Type: MAC
--- NOTE | 2025-05-21 10:38 | P.PCN_ITS ---
[facility] Procedure Note Date: 05/21/25 Time: 10:59 Procedure Note:: Colonoscopy Procedure Report: Colonoscopy with cold snare polypectomy and cold biopsies Endoscopist: Elio Loredo II, MD Referring physician: JOSE Soto Date of Procedure: May 21, 2025 Equipment: Olympus [id number] adult colonoscope Sedation: MAC sedation Indication: Mr. Bishop is a 45-year-old gentleman who is here for diagnostic colonoscopy. The patient has had some bowel urgency and blood in his stool. He had a fecal calprotectin on 02/28/2025 that was 1450. He did have an elevated p- ANCA (1: 160). He also had an elevated ASCA IgA antibody of 25.1. He improved with prednisone. He had a colonoscopy with Dr. Ching that showed mildly active regional colitis with skip areas. Sandra Villa placed him on mesalamine for 6 months. He did well and weaned off of this. He has had mucousy stools, urgency and some bowel movements that are bloody. He did quit smoking almost 2 years ago and his colitis symptoms began shortly thereafter. The patient does report some exacerbation of his hemorrhoids with the diarrhea. Procedure: Prior to the procedure, a history and physical exam was performed, and patient's medications and allergies were reviewed. The risks, benefits and alternatives of the sedation and procedure were discussed with the patient. All questions were answered and informed consent was obtained. The patient was brought to the procedure room. Patient identification and proposed procedure were verified by the physician and the nurse. The patient was placed in a left lateral decubitus position and the scope was passed under direct vision. Throughout the procedure, the patient's blood pressure, pulse, and oxygen saturations were monitored continuously. The colonoscopy was accomplished without difficulty. The patient tolerated the procedure well. Findings: On digital rectal examination there was normal rectal tone. There were external hemorrhoidal tags. The prostate was 2+, mildly firm but symmetric without nodules. The colonoscope was introduced through the anal canal to the rectum and advanced to the cecum. The ileocecal valve and appendiceal orifice were identified. The scope was advanced a short distance into the ileum which appeared grossly normal. The scope was then withdrawn into the colon. The cecum was normal. There was a 8 to 9 mm sessile polyp in the ascending colon removed via cold snare polypectomy. The transverse and descending colon were normal. At 32 cm from the pectinate line there was circumferential erythema, edema, loss of vascular pattern with granularity and surface erosions consistent with moderate left-sided ulcerative colitis. This extended to the pectinate line. Multiple biopsies were taken from the sigmoid and rectum. Upon retroflexion within the rectum there were grade 2 internal hemorrhoids. The preparation was excellent throughout with Highland Preparation Score of 9. The cecal time was 12 minutes. Impression: 1. Moderate left-sided ulcerative colitis 2. Ascending colon polyp (8 to 9 mm) Plan: I will follow-up the biopsies and begin treatment to achieve and maintain remission. I would consider Zeposia or Velsipity. I will discuss the findings with the patient and family. I will follow-up the polyp histology and recommend repeat screening/surveillance colonoscopy again in 5 years.
[2025-05-21 11:03] VITALS: BP 108/74; PULSE 104; RESP 16; TEMP 36.1; O2SAT 94
[2025-05-21 11:13] VITALS: BP 120/70; PULSE 92; RESP 16; TEMP 36.1; O2SAT 95
[2025-05-21 11:23] VITALS: BP 123/71; PULSE 90; RESP 17; TEMP 36.1; O2SAT 96
[2025-05-21 11:33] VITALS: BP 120/76; PULSE 78; RESP 18; TEMP 36.1; O2SAT 96
== END 2025-05-21 12:00 | disposition home or self-care (01) ==
PROVIDERS: PCP Nurse Practitioner Family; Visit Provider Internal Medicine Gastroenterology
PROC: 0DJD8ZZ Inspection of Lower Intestinal Tract, Via Natural or Artificial Opening Endoscopic (ICD-10-PCS; CPT 45378; principal; 2025-05-21 11:30)
DX: D12.2 Benign neoplasm of ascending colon (principal); K51.50 Left sided colitis without complications; F41.9 Anxiety disorder, unspecified; Z86.16 Personal history of COVID-19; Z87.891 Personal history of nicotine dependence; Z79.899 Other long term (current) drug therapy
CPT/HCPCS: 45385; J2003; J2704; J7120

== ENCOUNTER 2025-05-27 09:49 | Outpatient (CLI) | payer BC, SELFPAY ==
--- OUTSIDE RECORDS SUMMARY | 2025-05-27 09:58 | XMS_ITS | Encounter Summary ---
Author Organization Healthcare Address [address] [place] [address] Care Team Providers Care Teacher Lip Reading Name Role Phone Ximena Swenson APRN Primary Care Provider + Encounter Details Date Type Department Care Team (Late st Contact Info) Description 06/27/2023 [facility] [address] [place] [address] Ximena Swenson APRN [address] [phone] (Fax) Closed fracture of maxillary sinus with [...] Primary documented in this encounter Care Teams Teacher Lip Reading Relationship Specialty Start Date End Date Ximena Swenson APRN [address] [place] [address] (Fax) PCP - General 07/07/23 documented as of this encounter
--- OUTSIDE RECORDS SUMMARY | 2025-05-27 09:58 | XMS_ITS | Clinical Summary ---
Author Organization Healthcare Address [address] [place] [address] Care Team Providers Care Cordwood Cutter Helper Name Role Phone MessiXimena Jordi MEJÍA Primary Care Provider [phone] Allergies No known active allergies Medications loratadine [...] [facility]-HIV Screening 1981 [facility]-Hepatitis C Screening 1981 [facility]-Infant/Child/Adol SDOH Screenings 1981 [facility]-Varicella Vaccines (1 of 2 - 13+ 2-dose series) 1994 [facility]- SDOH Screenings 1999 [facility]-Adult SDOH Screenings 1999 [facility]-DTaP,Tdap,and Td Vaccines (1 - Tdap) 2000 [facility]-Hepatitis B Vaccines (1 of 3 - 19+ 3-dose series) 2000 HPV Vaccines (1 - 3-dose SCDM series) 2008 MPT-HCANU-76 Vaccine ( - 2023- season) 2024 10/24/2022, 05/12/2021, 04/21/2021 [facility]-Influenza Vaccine (#1) 05/19/202506/28, 10/24/2022 [facility]-Zoster Vaccines (1 of 2) 2031 [...] this topic Medical Devices Implanted Type Area Terminologist Device Identifier Shelf Expiration Date Model / Serial / Lot Plate Matric Orbital Rim Plate 12 Holes 0.5mm - [id number] Implanted:Qty: 1 on 07/13/2023 by Tawanda Lucero MD at [facility] Left: [employer] [id number] 07/13/2024 04.503.343 / / Plate Matric Orbital Rim Plate 12 Holes 0.7mm - [id number] Implanted:Qty: 1 on 07/13/2023 by Tawanda Lucero MD at [facility] Left: [employer] [id number] / / Plate Matric Oblique L-Pl 3x4 Holes-Left/0.7 mm - [id number] Implanted:Qty: 1 on 07/13/2023 by Tawanda Lucero MD at [facility] Left: [employer] [id number] 503.355 / / Screw Matrix Self-Drill 5mm - [id number] Implanted:Qty: 13 on 07/13/2023 by Tawanda Lucero MD at [facility] Left: [employer] [id number] 503.225 .01 / / Screw Matrix Emergency Screw 5mm - [id number] Implanted:Qty: 1 on 07/13/2023 by Tawanda Lucero MD at [facility] Left: [employer] [id number] 503.235 .01 / / Explanted Type Area Terminologist Device Identifier Shelf Expiration Date Model / Serial / Lot Screw Matrix Emergency Screw 5mm - [id number] Explanted:Qty: 1 on 07/13/2023 at [facility] Left: [employer] [id number] 503.235 .01 / / Insurance JENNY Care Teams Cordwood Cutter Helper Relationship Specialty Start Date End Date Ximena Swenson APRN [address], [place] [id number] [phone] PCP - General 07/07/23
== END 2025-05-27 23:59 | disposition home or self-care (01) ==
LOC: LAB 09:50
PROVIDERS: PCP Nurse Practitioner Family; Visit Provider Internal Medicine Gastroenterology
DX: K51.50 Left sided colitis without complications (principal)
CPT/HCPCS: 36415; 86480

== ENCOUNTER 2025-06-30 14:41 | Observation (INO) | payer BC, SELFPAY ==
--- OUTSIDE RECORDS SUMMARY | 2025-06-20 15:57 | XMS_ITS | Encounter Summary ---
Author Organization Healthcare Address [address] [place] [address] Care Team Providers Care Aircraft Refueller Name Role Phone SwensonXimena springer ALFONZO Primary Care Provider [phone] Reason for Visit * Reason Comments Abdominal Pain Encounter Details Date Type Department Care Team (Late st Contact Info) Description 06/20/2025 3:57 PM EDT - 06/20/2025 8:05 PM EDT Emergency [facility] [address] [place] [address] Chris Chiu MD [address] [place] [address] Generalized abdominal pain (Primary Dx); Other ulcerative [...] by mouth 2 (two) times a day. dicyclomine (Bentyl) 20 MG tablet Take 1 tablet by mouth 4 times a day as needed (abdominal cramping). 20 tablet 06/20/2025 07/20/2025 loratadine (Claritin) 10 MG tablet Take 1 tablet (10 mg) by mouth 1 (one) time each day. rosuvastatin (Crestor) 20 MG tablet Take 1 tablet (20 mg) by mouth every night. documented as of this encounter Miscellaneous Notes * ED Provider Notes - Nikki Nobles MD - 06/20/2025 3:00 PM EDT Images from the original note were not included. - HPI Chief Complaint Patient presents with Abdominal Pain [facility] NOTE Ranjeet Bishop is a 45 y.o. male who presents to the ED with ABD pain. Pt arrives to the ED c/o Abdominal pain, diarrhea, and rectal bleeding secondary to worsening colitis. Pt reports colitis is autoimmune, with most recent colonoscopy at beginning of May. Pt reports h/o smoking , but states he has stopped. MAIN ED NOTE//Nikki Nobles MD: I assumed full responsibility for this patient after transfer to Main ED from [facility]. I personally performed my own history, ROS, and physical. I agree with the above [facility] documentation with the following additions/exceptions: Patient states [...] and Affect: Mood normal. Behavior: Behavior normal. 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 Disposition Discharge AVS (H[place]uran Snapshot) - Printed 06/20/2025 Follow-Ups: Follow up [...] Detected Not Detected 06/20/2025 7:24 PM EDT [facility] Influenza A Virus PCR Result Not Detected Not Detected 06/20/2025 7:24 PM EDT [facility] Influenza B Virus PCR Result Not Detected Not Detected 06/20/2025 7:24 PM EDT [facility] Respiratory Syncytial Virus (RSV) PCR Result Not Detected Not Detected 06/20/2025 7:24 PM EDT [facility] Swab Nasopharyngeal structure / Unknown Non-blood Collection / Unknown 06/20/2025 6:22 PM EDT 06/20/2025 6:36 PM EDT Narrative [facility] - 06/20/2025 7:24 PM EDT This [...] MICROBIOLOGY - GENERAL ORDER SANDRA Final Result [facility] [address] [place] [address] * CT Abdomen Pelvis w IV Contrast [...] Detected Not Detected 06/20/2025 9:37 PM EDT [facility] Plesiomonas shigelloides PCR Result Not Detected Not Detected 06/20/2025 9:37 PM EDT [facility] Salmonella PCR Result Not Detected Not Detected 06/20/2025 9:37 PM EDT [facility] Vibrio species PCR Result Not Detected Not Detected 06/20/2025 9:37 PM EDT [facility] Vibrio cholerae PCR Result Not Detected Not Detected 06/20/2025 9:37 PM EDT [facility] Yersinia enterocolitica PCR Result Not Detected Not Detected 06/20/2025 9:37 PM EDT [facility] Enteroaggregative E. coli (EAEC) PCR Result Not Detected Not Detected 06/20/2025 9:37 PM EDT [facility] Enteropathogenic E. coli (EPEC) PCR Result Not Detected Not Detected 06/20/2025 9:37 PM EDT [facility] Enterotoxigenic E. coli (ETEC) lt/st PCR Result Not Detected Not Detected 06/20/2025 9:37 PM EDT [facility] Shiga-like Toxin-Producing E.coli (STEC) stx1/stx2 PCR Resu Not Detected Not Detected 06/20/2025 9:37 PM EDT [facility] E coli 0157 PCR Result Not Detected Not Detected 06/20/2025 9:37 PM EDT [facility] Shigella/Enteroinvas stanislav E. coli (EIEC) PCR Result Not Detected Not Detected 06/20/2025 9:37 PM EDT [facility] Cryptosporidium PCR Result Not Detected Not Detected 06/20/2025 9:37 PM EDT [facility] Cyclospora cayetanensis PCR Result Not Detected Not Detected 06/20/2025 9:37 PM EDT [facility] Entamoeba histolytica PCR Result Not Detected Not Detected 06/20/2025 9:37 PM EDT [facility] Giardia duodenalis (aka Giardia lamblia) PCR Result Not Detected Not Detected 06/20/2025 9:37 PM EDT [facility] Adenovirus F 40/41 PCR Result Not Detected Not Detected 06/20/2025 9:37 PM EDT [facility] Astrovirus PCR Result Not Detected Not Detected 06/20/2025 9:37 PM EDT [facility] Norovirus GI/GII PCR Result Not Detected Not Detected 06/20/2025 9:37 PM EDT [facility] Rotavirus A PCR Result Not Detected Not Detected 06/20/2025 9:37 PM EDT [facility] Sapovirus PCR Result Not Detected Not Detected 06/20/2025 9:37 PM EDT [facility] Stool Rectum structure / Unknown Non-blood Collection / Unknown 06/20/2025 5:18 PM EDT 06/20/2025 5:43 PM EDT Narrative [facility] - 06/20/2025 9:37 PM EDT This [...] MICROBIOLOGY - GENERAL ORDER SANDRA Final Result [facility] [address] [place] [address] * (ABNORMAL) Calprotectin, Stool (06/20/2025 5:18 PM [...] weeks. 121 ug/g or greater......Elevated Performed By: [facility] [address] [place] [address] Pug Mill Operator Helper: Jerman Elias MD, PhD CLIA Number: [id number] Chris Chiu MD LAB BODY FLUIDS AND STOOLS ORDER SANDRA Final Result [facility] [address] [place] [address] * (ABNORMAL) Fecal Lactoferrin (06/20/2025 5:18 PM EDT) Fecal Lactoferrin Result Positive( A) Negative 06/21/2025 6:07 AM EDT [facility] Stool Rectum structure / Unknown Non-blood Collection / Unknown 06/20/2025 5:18 PM EDT 06/20/2025 5:43 PM EDT Narrative [facility] - 06/21/2025 6:07 AM EDT NOTE: If patient is a breastfed child, results may be falsely positive. Result [facility] us Chris Chiu MD LAB MICROBIOLOGY - GENERAL ORDER SANDRA Final Result [facility] [address] [place] [address] * ED HIV 1/2 Antibody/Antigen Screen w/Reflex to HIV 1/2 Differentiation (06/20/2025 3:56 PM EDT) HIV 1 & 2 Antibody/Antigen Screen Non Reactive Non Reactive 06/20/2025 4:53 PM EDT [facility] Comment:Screening for HIV 1 & 2 antibodies, and P24 antigen is NONREACTIVE. No confirmatory testing is required. Blood Venous blood specimen / Unknown Venipuncture / Unknown 06/20/2025 3:56 PM EDT 06/20/2025 4:13 PM EDT us Chris Chiu MD LAB BLOOD ORDERABLES Final Resul t Performing Organization Address City/[facility]/ZIP Co de Phone Number [facility] [address] [place] [address] * Hepatitis C Antibody - ED (06/20/2025 3:56 PM EDT) Hepatitis C Antibody Negative Negative 06/20/2025 4:53 PM EDT [facility] Blood Venous blood specimen / Unknown Venipuncture / Unknown 06/20/2025 3:56 PM EDT 06/20/2025 4:13 PM EDT us Chris Chiu MD LAB BLOOD ORDERABLES Final Resul t Performing Organization Address City/[facility]/ZIP Co de Phone Number [facility] [address] [place] [address] * Lactic acid, venous (06/20/2025 3:56 PM EDT) Pathologist [facility] Lactate, Venous, Whole Blood 0.8 0.5 - 2.2 mmol/L LAB HEMATOLOGY METHOD 06/20/2025 4:09 PM EDT [facility] Blood Venous blood specimen / Unknown Venipuncture / Unknown 06/20/2025 3:56 PM EDT 06/20/2025 4:07 PM EDT us Chris Chiu MD LAB BLOOD ORDERABLES Final Resul t Performing Organization Address City/[facility]/ZIP Co de Phone Number [facility] [address] [place] [address] * (ABNORMAL) CBC w/diff (06/20/2025 3:56 PM EDT) WBC Count 9.11 3.70 - 10.30 10*3/uL LAB HEMATOLOGY METHOD 06/20/2025 4:09 PM EDT [facility] RBC Count 3.46(L) 4.60 - 6.10 10*6/uL LAB HEMATOLOGY METHOD 06/20/2025 4:09 PM EDT [facility] HGB 9.0(L) 13.7 - 17.5 g/dL LAB HEMATOLOGY METHOD 06/20/2025 4:09 PM EDT [facility] HCT 28.5(L) 40.0 - 51.0 % LAB HEMATOLOGY METHOD 06/20/2025 4:09 PM EDT [facility] Platelet Count 335 155 - 369 10*3/uL LAB HEMATOLOGY METHOD 06/20/2025 4:09 PM EDT [facility] MCV 82 79 - 98 fL LAB HEMATOLOGY METHOD 06/20/2025 4:09 PM EDT [facility] MCH 26.0 26.0 - 32.0 pg LAB HEMATOLOGY METHOD 06/20/2025 4:09 PM EDT [facility] MCHC 31.6 30.7 - 35.5 g/dL LAB HEMATOLOGY METHOD 06/20/2025 4:09 PM EDT [facility] RDW 13.8 11.5 - 14.5 % LAB HEMATOLOGY METHOD 06/20/2025 4:09 PM EDT [facility] MPV 9.1 8.8 - 12.5 fL LAB HEMATOLOGY METHOD 06/20/2025 4:09 PM EDT [facility] nRBC 0.0 <=0.0 per 100 WBCs LAB HEMATOLOGY METHOD 06/20/2025 4:09 PM EDT [facility] Differential Type Automated LAB HEMATOLOGY METHOD 06/20/2025 4:09 PM EDT [facility] Neutrophils % 76 % LAB HEMATOLOGY METHOD 06/20/2025 4:09 PM EDT [facility] Lymphocytes % 13 % LAB HEMATOLOGY METHOD 06/20/2025 4:09 PM EDT [facility] Monocytes % 6 % LAB HEMATOLOGY METHOD 06/20/2025 4:09 PM EDT [facility] Eosinophils % 4 % LAB HEMATOLOGY METHOD 06/20/2025 4:09 PM EDT [facility] Basophils % 0 % LAB HEMATOLOGY METHOD 06/20/2025 4:09 PM EDT [facility] Immature Granulocytes % 1 % LAB HEMATOLOGY METHOD 06/20/2025 4:09 PM EDT [facility] Neutrophils Absolute 6.94(H) 1.60 - 6.10 10*3/uL LAB HEMATOLOGY METHOD 06/20/2025 4:09 PM EDT [facility] Lymphocytes Absolute 1.20 1.20 - 3.90 10*3/uL LAB HEMATOLOGY METHOD 06/20/2025 4:09 PM EDT [facility] Monocytes Absolute 0.54 0.30 - 0.90 10*3/uL LAB HEMATOLOGY METHOD 06/20/2025 4:09 PM EDT [facility] Eosinophils Absolute 0.35 0.00 - 0.50 10*3/uL LAB HEMATOLOGY METHOD 06/20/2025 4:09 PM EDT [facility] Basophils Absolute 0.03 0.00 - 0.10 10*3/uL LAB HEMATOLOGY METHOD 06/20/2025 4:09 PM EDT [facility] Immature Granulocytes Absolute 0.05 0.00 - 0.06 10*3/uL LAB HEMATOLOGY METHOD 06/20/2025 4:09 PM EDT [facility] Blood Venous blood specimen / Unknown Venipuncture / Unknown 06/20/2025 3:56 PM EDT 06/20/2025 4:07 PM EDT Narrative [facility] - 06/20/2025 4:09 PM EDT Therapeutic decision making should be based on absolute values, rather than percentages. us Chris Chiu MD LAB BLOOD ORDERABLES Final Resul t [facility] [address] [place] [address] * Lipase (06/20/2025 3:56 PM EDT) Lipase, Plasma 26 19 - 63 U/L 06/20/2025 4:28 PM EDT [facility] Blood Venous blood specimen / Unknown Venipuncture / Unknown 06/20/2025 3:56 PM EDT 06/20/2025 4:07 PM EDT us Chris Chiu MD LAB BLOOD ORDERABLES Final Resul t [facility] [address] [place] [address] * (ABNORMAL) CMP (06/20/2025 3:56 PM EDT) Glucose, Plasma 114(H) 74 - 99 mg/dL 06/20/2025 4:28 PM EDT [facility] BUN, Plasma 10 7 - 21 mg/dL 06/20/2025 4:28 PM EDT [facility] Creatinine, Plasma 0.92 0.70 - 1.20 mg/dL 06/20/2025 4:28 PM EDT [facility] BUN/Creatinine Ratio 11 06/20/2025 4:28 PM EDT [facility] Sodium, Plasma 136 136 - 145 mmol/L 06/20/2025 4:28 PM EDT [facility] Potassium, Plasma 3.6 3.6 - 4.9 mmol/L 06/20/2025 4:28 PM EDT [facility] Chloride, Plasma 101 97 - 107 mmol/L 06/20/2025 4:28 PM EDT [facility] CO2, Plasma 24 22 - 29 mmol/L 06/20/2025 4:28 PM EDT [facility] Anion Gap 11 6 - 16 mmol/L 06/20/2025 4:28 PM EDT [facility] Total Calcium, Plasma 8.6(L) 8.9 - 10.2 mg/dL 06/20/2025 4:28 PM EDT [facility] Total Protein 7.1 6.3 - 7.9 g/dL 06/20/2025 4:28 PM EDT [facility] Albumin, Plasma 3.8 3.5 - 5.2 g/dL 06/20/2025 4:28 PM EDT [facility] AST, Plasma 15 10 - 50 U/L 06/20/2025 4:28 PM EDT [facility] ALT, Plasma 11 10 - 50 U/L 06/20/2025 4:28 PM EDT [facility] Alkaline Phosphatase, Plasma 59 40 - 115 U/L 06/20/2025 4:28 PM EDT [facility] Total Bilirubin, Plasma 0.4 0.2 - 1.1 mg/dL 06/20/2025 4:28 PM EDT [facility] eGFRcr 105.2 mL/min/1.7 3m*2 06/20/2025 4:28 PM EDT [facility] Comment:Reported eGFRcr in m L/min/1.73m2 is based the CKD-EPI 2020 equation that does not use a race coefficient. Blood Venous blood specimen / Unknown Venipuncture / Unknown 06/20/2025 3:56 PM EDT 06/20/2025 4:07 PM EDT us Chris Chiu MD LAB BLOOD ORDERABLES Final Resul t [facility] [address] [place] [address] documented in this encounter Visit Diagnoses Diagnosis [...] at 1544, Until Mon06/20/25 at 2205, STAT, moderate pain ondansetron (Zofran) injection 4 mg 4 mg, [...] 1821 (Given - Provid er: Jose M Alejandro RN) iohexol (OMNIPaque) 300 MG/ML injection 100 mL [...] at 1544, Until Mon06/20/25 at 2205, STAT, moderate pain ondansetron (Zofran) injection 4 mg 4 mg, [...] documented as of this encounter Care Teams Aircraft Refueller Relationship Specialty Start Date End Date Ximena Swenson APRN [address] [place] [address] PCP - General 07/07/23 documented as of this encounter
[2025-06-30] VITALS (26 sets, daily range): BP systolic 122–149; BP diastolic 62–98; PULSE 94–106; RESP 12–18; TEMP 36.4–36.9; O2SAT 96–100; BMI 23.7
--- NOTE | 2025-06-30 14:58 | HMH.EDGENADL ---
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 by RN): PT presents with fatigue and low energy levels. Pt does have a history of UC and states he's been in the middle of a flair up and has lost a bit of blood. History of Present Illness HPI narrative: 45-year-old male with a history of ulcerative colitis presents emergency department with complaints of weakness. Reports that he has had rectal bleeding for the past 2 months. He states he was seen at [facility] approximately 2 weeks ago where he reports that his hemoglobin was low but not low enough for transfusion. He states he is followed by Dr. Loredo at this facility for GI coverage. He reports that while his symptoms have improved he has gotten 4 weeks. He reports he is having 3-4 loose bowel movements daily with bright red blood. Denies fevers, nausea, vomiting. Related Data Home Medications ?Medication ?Instructions ?Recorded ?Confirmed escitalopram oxalate 10 mg tablet 10 mg PO DAILY 12/29/23 06/30/25 loratadine 10 mg tablet (Claritin) 10 mg PO DAILY 12/29/23 06/30/25 rosuvastatin 20 mg tablet 20 mg PO DAILY 10/07/24 06/30/25 guselkumab 200 mg/2 mL 200 mg SQ MONTHLY 06/30/25 06/30/25 subcutaneous syringe (Tremfya) rizatriptan 10 mg tablet 10 mg PO Q2H PRN Migraine Headache 06/30/25 06/30/25 Previous Rx's ?Medication ?Instructions ?Recorded omeprazole 40 mg capsule,delayed 40 mg PO DAILY #90 caps 10/07/24 release Allergies Allergy/AdvReac Type Severity Reaction Status Date / Time No Known Allergies Allergy Verified 05/21/25 10:14 PFS <Latisha Zapata - Last Filed: 06/30/25 16:43> [facility] Disclaimer: The information contained in this section may have been updated after the patient was seen, as this information can be updated by other users. Medical History Heartburn Colitis Anxiety History of COVID-19 Migraine Allergies Surgical History History of facial surgery Family History Grandfather Cancer Other Heart disease Social History Smoking Status: Never smoker smoking status start date: June 2023 years smoked: 25 second hand exposure: Yes alcohol intake: current alcohol intake frequency: a few times a month substance use type: denies use current occupational status: employed Travel in the last 8 weeks?: None household members: family housing: house marital status: caffeine: Yes physical activity: walking do you feel safe at home: Yes victim of physical abuse: No victim of emotional abuse: No victim of sexual abuse: No would you like helpful sources: No Have you lived/traveled outside [place] in past 30 days?: No Contact w/someone who lives/traveled outside US past 30 days?: No Exposure to someone with infectious disease in past 14 days?: No Do you have a fever (greater than 100.4 F or 38 C)?: No Have you tested positive for COVID-19?: No Exposed to someone with COVID-19 in past 14 days?: No Do you have a sore throat?: No Do you have a cough?: No Do you have any weakness?: No Are you experiencing any nausea/vomitting?: No Do you have any diarrhea?: No Are you experiencing any unusual bleeding?: No Do you have any muscle aches/pain?: No Do you have any abdominal pain?: No Are you experiencing loss of taste or smell?: No Other Medical History Have you received the Pneumonia Vaccine: No <Latisha Zapata - Last Filed: 06/30/25 16:43> ROS Obtained: Yes other Constitutional Constitutional: Reports weakness Gastrointestinal Gastrointestingal: Reports diarrhea and hematochezia Neurologic Neurologic: Reports weakness Physical Exam <Latisha Kelly Filed: 06/30/25 16:43> Narrative Physical exam: General: Awake, aware, in no acute distress HEENT: Normocephalic, no evidence of trauma CV: RRR, no murmurs, rubs, or gallops Pulm: CTA bilaterally with no rhonchi, rales, wheezes ABD: Patient with normal active bowel sounds. Patient reports mild diffuse tenderness on palpation. Psych, appropriate mood and affect General General appearance: alert Respiratory Respiratory exam: Present normal lung sounds bilaterally Cardiovascular Cardiovascular exam: Present regular rate Neurological Exam Neurological exam: Present alert Medical Decision Making <Latisha Kelly Filed: 06/30/25 16:43> Medical Records Screening: Per USPSTF and CDC recommendations, given the prevalence of disease in our region, it is our hospital?s policy to screen for HIV and viral Hepatitis for all patients aged 18 and over and those with ongoing risk factors. Og Inquiry Pt receiving controlled substance: No Vital Signs: 06/30/25 14:48 06/30/25 15:11 06/30/25 15:30 Temperature 98.4 F Temperature Source Oral Pulse Rate 101 H 96 H Pulse Rate [Right] 106 H Respiratory Rate 18 15 12 TAR Vitals Timing Blood Pressure 137/89 127/84 Blood Pressure [Right Arm] 135/82 Blood Pressure Mean Blood Pressure Mean [Right Arm] 99 Blood Pressure Source Blood Pressure Source [Right Arm] Automatic Cuff Blood Pressure Position Blood Pressure Position [Right Arm] Sitting 02 Sat by Pulse Oximetry 99 100 99 Oxygen Delivery Method Room Air Room Air Room Air 06/30/25 16:00 06/30/25 16:30 06/30/25 16:57 Temperature Temperature Source Pulse Rate 99 H 103 H 97 H Pulse Rate [Right] Respiratory Rate 12 14 17 TAR Vitals Timing Blood Pressure 130/85 133/90 139/89 Blood Pressure [Right Arm] Blood Pressure Mean Blood Pressure Mean [Right Arm] Blood Pressure Source Blood Pressure Source [Right Arm] Blood Pressure Position Blood Pressure Position [Right Arm] 02 Sat by Pulse Oximetry 100 100 99 Oxygen Delivery Method Room Air Room Air Room Air 06/30/25 16:58 06/30/25 17:00 06/30/25 17:00 Temperature 98.3 F 98.3 F Temperature Source Oral Oral Pulse Rate 99 H 98 H 97 H Pulse Rate [Right] Respiratory Rate 15 14 12 TAR Vitals Timing Pre-Blood Vitals Start Vitals Blood Pressure 139/98 H 141/91 H 149/91 H Blood Pressure [Right Arm] Blood Pressure Mean 111 107 Blood Pressure Mean [Right Arm] Blood Pressure Source Automatic Cuff Automatic Cuff Blood Pressure Source [Right Arm] Blood Pressure Position Supine Blood Pressure Position [Right Arm] 02 Sat by Pulse Oximetry 99 100 99 Oxygen Delivery Method Room Air 06/30/25 17:05 06/30/25 17:05 06/30/25 17:10 Temperature 98.1 F 98 F Temperature Source Oral Oral Pulse Rate 100 H 101 H 102 H Pulse Rate [Right] Respiratory Rate 14 15 15 TAR Vitals Timing 5 Minute 10 Minute Blood Pressure 138/91 H 139/91 H 144/88 H Blood Pressure [Right Arm] Blood Pressure Mean 106 106 Blood Pressure Mean [Right Arm] Blood Pressure Source Automatic Cuff Automatic Cuff Blood Pressure Source [Right Arm] Blood Pressure Position Supine Supine Blood Pressure Position [Right Arm] 02 Sat by Pulse Oximetry 99 98 99 Oxygen Delivery Method Room Air 06/30/25 17:10 06/30/25 17:15 06/30/25 17:15 Temperature 98.1 F Temperature Source Oral Pulse Rate 100 H 98 H Pulse Rate [Right] Respiratory Rate 18 14 13 TAR Vitals Timing 15 Minute Blood Pressure 144/88 H 138/88 138/88 Blood Pressure [Right Arm] Blood Pressure Mean 104 Blood Pressure Mean [Right Arm] Blood Pressure Source Automatic Cuff Blood Pressure Source [Right Arm] Blood Pressure Position Supine Blood Pressure Position [Right Arm] 02 Sat by Pulse Oximetry 99 100 Oxygen Delivery Method Room Air Room Air 06/30/25 17:27 06/30/25 17:30 06/30/25 17:42 Temperature 98.2 F 98.1 F Temperature Source Oral Oral Pulse Rate 96 H 96 H Pulse Rate [Right] Respiratory Rate 14 15 TAR Vitals Timing 30 Minute Blood Pressure 136/86 136/89 Blood Pressure [Right Arm] Blood Pressure Mean 102 Blood Pressure Mean [Right Arm] Blood Pressure Source Automatic Cuff Blood Pressure Source [Right Arm] Blood Pressure Position Supine Sitting Blood Pressure Position [Right Arm] 02 Sat by Pulse Oximetry 99 Oxygen Delivery Method Room Air Room Air Lab Data Lab Results 06/30/25 15:18: WBC 7.5, RBC 2.43 L, Hgb 6.2 L*, Hct 19.7 L*, MCV 81.1, MCH 25.5 L, MCHC 31.5 L, RDW 14.4, Plt Count 473 H, MPV 8.8, Neut % (Auto) 67.6, Lymph % (Auto) 21.8, [place] % (Auto) 4.8, Eos % (Auto) 4.8, Baso % (Auto) 0.3, Neut # (Auto) 5.1, Lymph # (Auto) 1.6, [place] # (Auto) 0.4, Eos # (Auto) 0.4, Baso # (Auto) 0.0, PT 10.9, INR 0.98, APTT 23.9, Sodium 138, Potassium 3.6, Chloride 102, Carbon Dioxide 28, Anion Gap 11.6, BUN 9, Creatinine 1.00, Estimated Creat Clear 115, Estimated GFR 81, Est GFR ( Amer) 98, Glucose 73 L, Calcium 8.4, Magnesium 2.1, Total Bilirubin 0.4, AST 29, ALT 18, Alkaline Phosphatase 68, Total Protein 7.3, Albumin 3.7, Globulin 3.6 H, Albumin/Globulin Ratio 1.0 L, Lipase 117, Blood Type O Positive, Antibody Screen Negative, Crossmatch (AHG) See Detail 06/30/25 16:22: Blood Type Confirm O Positive 06/30/25 20:02 06/30/25 15:18 Orders (Tests/Meds): ED MEDICATIONS Generic Name Dose Route Start Last Admin Trade Name Abram PRN Reason Stop Dose Admin Escitalopram Oxalate 10 mg 07/01/25 09:00 Escitalopram 10mg Tablet PO 07/31/25 08:59 DAILY ALTHEA Hydrocortisone 0 gm 06/30/25 19:03 Hydrocortisone 2.5% Cream 28gm Tube TP 07/30/25 20:59 BID PRN Hemorrhoids Sodium Chloride 250 mls @ 25 mls/hr 06/30/25 16:00 06/30/25 19:00 Sod Chlor 0.9% 250ml Bag IV 07/01/25 15:59 Infused .Q10H ALTHEA Infusion Iron Sucrose 200 mg/ Sodium 110 mls @ 220 mls/hr 07/01/25 08:00 Chloride IV 07/01/25 08:29 ONCE ONE Sodium Chloride 250 mls @ 25 mls/hr 06/30/25 20:30 06/30/25 23:53 Sod Chlor 0.9% 250ml Bag IV 07/01/25 20:29 Infused .Q10H ALTHEA Infusion Pantoprazole Sodium 40 mg 06/30/25 21:00 06/30/25 20:21 Pantoprazole 40mg Tablet PO 07/30/25 20:59 40 mg HS ALTHEA Administration Prednisone 40 mg 06/30/25 19:39 06/30/25 20:21 Prednisone 20mg Tab PO 06/30/25 19:40 40 mg ONCE ONE Administration Prednisone 40 mg 07/01/25 09:00 Prednisone 20mg Tab PO 07/31/25 08:59 DAILY ALTHEA Discontinued Medications Generic Name Dose Route Start Last Admin Trade Name Freq PRN Reason Stop Dose Admin Acetaminophen 1,000 mg 06/30/25 17:06 06/30/25 17:07 Acetaminophen 500mg Tab PO 06/30/25 17:07 1,000 mg ONCE ONE Administration Hydrocortisone 0 gm 06/30/25 19:01 Hydrocortisone 2.5% Cream 28gm Tube TP 07/30/25 20:59 TID PRN Hemorrhoids Sodium Chloride 1,000 mls @ 999 mls/hr 06/30/25 15:09 06/30/25 16:42 Sod Chlor 0.9% 1000ml Bag IV 06/30/25 16:09 Infused .Q1H1M ONE Infusion ORDERS Category Date Time Status PRBC [Red Blood Cells] Stat BBK 06/30/25 15:18 Completed Type and Screen Stat BBK 06/30/25 15:18 Completed CBC w/Auto Diff [Complete Blood Count Auto Diff] Stat Lab 06/30/25 15:18 Completed CMP [Comprehensive Metabolic Panel] Stat Lab 06/30/25 15:18 Completed Complete Blood Count Auto Diff AMLAB Lab 07/01/25 06:00 Ordered Comprehensive Metabolic Panel AMLAB Lab 07/01/25 06:00 Ordered Lactic Acid Stat Lab 06/30/25 20:02 Completed Lipase Stat Lab 06/30/25 15:18 Completed Magnesium AMLAB Lab 07/01/25 06:00 Ordered Magnesium Stat Lab 06/30/25 15:18 Completed PT/INR [Prothrombin Time INR] Stat Lab 06/30/25 15:18 Completed PTT [Activated Partial Thrombo Time] Stat Lab 06/30/25 15:18 Completed Urinalysis and Microscopic Stat Lab 06/30/25 15:09 Ordered Medical Decision Narrative: Initial impression of presenting illness: 45-year-old male with a history of ulcerative colitis presents emergency department with complaints of ongoing rectal bleeding with generalized weakness and fatigue. He reports that he has been having rectal bleeding with diarrhea. He reports that the number of diarrhea episodes daily has improved from 10 down to 3-4 however he is still having rectal bleeding. he reports that he was seen at [facility] 2 weeks ago for the same complaint. He reports that his hemoglobin hematocrit were low at that time but not low enough for his transfusion. Differential diagnosis includes but is not limited to: Anemia, low iron, UC flare, dehydration Patient arrives hemodynamically stable, afebrile, without respiratory distress with vital signs interpreted by myself. Initial physical exam reveals mild diffuse tenderness on palpation of abdomen with normal active bowel sounds. Rest of exam is unremarkable Initial diagnostic plan: Abdominal pain workup including type and screen. Will hold on CT scanning as patiently recently had a CT scan at [facility]. Results from initial plan were reviewed and interpreted by myself, pertinent positives include: Hemoglobin 6.2, hematocrit 19.7, rest of laboratory studies were nonactionable. Interventions in the ED: Patient was given normal saline bolus for hydration. He was also given 1 unit of packed red blood cells. Patient was made aware of the results and the findings, upon reevaluation patient has remained stable throughout stay, symptoms remained stable. Upon reevaluation patient is resting comfortably in bed. At the time of his note patient had not yet started his blood transfusion as nursing staff was waiting for notification from blood bank that the unit was ready. Consultation/discussion with other physicians: Spoke with GI provider Dr. Loredo regarding patient's presenting complaint and workup findings. He recommended admitting patient to this facility. So recommended giving an iron infusion and states he will see the patient tomorrow for further evaluation. I then spoke with hospitalist Dr. Bowen who was agreeable to accept patient for further treatment. Disposition: Reviewed findings today's workup with patient and informed him that we would like to admit as his hemoglobin is low and he is needing blood transfusion. Informed him of Dr. Loredo recommendations to also give an iron transfusion. Agreeable for admission at this time. <Reji Laughlin, DO - Last Filed: 07/01/25 00:18> Medical Records Medical records reviewed: Yes I reviewed the patient's medical records. Vital Signs: 06/30/25 14:48 06/30/25 15:11 06/30/25 15:30 Temperature 98.4 F Temperature Source Oral Pulse Rate 101 H 96 H Pulse Rate [Right] 106 H Respiratory Rate 18 15 12 TAR Vitals Timing Blood Pressure 137/89 127/84 Blood Pressure [Right Arm] 135/82 Blood Pressure Mean Blood Pressure Mean [Right Arm] 99 Blood Pressure Source Blood Pressure Source [Right Arm] Automatic Cuff Blood Pressure Position Blood Pressure Position [Right Arm] Sitting 02 Sat by Pulse Oximetry 99 100 99 Oxygen Delivery Method Room Air Room Air Room Air 06/30/25 16:00 06/30/25 16:30 06/30/25 16:57 Temperature Temperature Source Pulse Rate 99 H 103 H 97 H Pulse Rate [Right] Respiratory Rate 12 14 17 TAR Vitals Timing Blood Pressure 130/85 133/90 139/89 Blood Pressure [Right Arm] Blood Pressure Mean Blood Pressure Mean [Right Arm] Blood Pressure Source Blood Pressure Source [Right Arm] Blood Pressure Position Blood Pressure Position [Right Arm] 02 Sat by Pulse Oximetry 100 100 99 Oxygen Delivery Method Room Air Room Air Room Air 06/30/25 16:58 06/30/25 17:00 06/30/25 17:00 Temperature 98.3 F 98.3 F Temperature Source Oral Oral Pulse Rate 99 H 98 H 97 H Pulse Rate [Right] Respiratory Rate 15 14 12 TAR Vitals Timing Pre-Blood Vitals Start Vitals Blood Pressure 139/98 H 141/91 H 149/91 H Blood Pressure [Right Arm] Blood Pressure Mean 111 107 Blood Pressure Mean [Right Arm] Blood Pressure Source Automatic Cuff Automatic Cuff Blood Pressure Source [Right Arm] Blood Pressure Position Supine Blood Pressure Position [Right Arm] 02 Sat by Pulse Oximetry 99 100 99 Oxygen Delivery Method Room Air 06/30/25 17:05 06/30/25 17:05 06/30/25 17:10 Temperature 98.1 F 98 F Temperature Source Oral Oral Pulse Rate 100 H 101 H 102 H Pulse Rate [Right] Respiratory Rate 14 15 15 TAR Vitals Timing 5 Minute 10 Minute Blood Pressure 138/91 H 139/91 H 144/88 H Blood Pressure [Right Arm] Blood Pressure Mean 106 106 Blood Pressure Mean [Right Arm] Blood Pressure Source Automatic Cuff Automatic Cuff Blood Pressure Source [Right Arm] Blood Pressure Position Supine Supine Blood Pressure Position [Right Arm] 02 Sat by Pulse Oximetry 99 98 99 Oxygen Delivery Method Room Air 06/30/25 17:10 06/30/25 17:15 06/30/25 17:15 Temperature 98.1 F Temperature Source Oral Pulse Rate 100 H 98 H Pulse Rate [Right] Respiratory Rate 18 14 13 TAR Vitals Timing 15 Minute Blood Pressure 144/88 H 138/88 138/88 Blood Pressure [Right Arm] Blood Pressure Mean 104 Blood Pressure Mean [Right Arm] Blood Pressure Source Automatic Cuff Blood Pressure Source [Right Arm] Blood Pressure Position Supine Blood Pressure Position [Right Arm] 02 Sat by Pulse Oximetry 99 100 Oxygen Delivery Method Room Air Room Air 06/30/25 17:27 06/30/25 17:30 06/30/25 17:42 Temperature 98.2 F 98.1 F Temperature Source Oral Oral Pulse Rate 96 H 96 H Pulse Rate [Right] Respiratory Rate 14 15 TAR Vitals Timing 30 Minute Blood Pressure 136/86 136/89 Blood Pressure [Right Arm] Blood Pressure Mean 102 Blood Pressure Mean [Right Arm] Blood Pressure Source Automatic Cuff Blood Pressure Source [Right Arm] Blood Pressure Position Supine Sitting Blood Pressure Position [Right Arm] 02 Sat by Pulse Oximetry 99 Oxygen Delivery Method Room Air Room Air Lab Data Lab Results 06/30/25 15:18: WBC 7.5, RBC 2.43 L, Hgb 6.2 L*, Hct 19.7 L*, MCV 81.1, MCH 25.5 L, MCHC 31.5 L, RDW 14.4, Plt Count 473 H, MPV 8.8, Neut % (Auto) 67.6, Lymph % (Auto) 21.8, [place] % (Auto) 4.8, Eos % (Auto) 4.8, Baso % (Auto) 0.3, Neut # (Auto) 5.1, Lymph # (Auto) 1.6, [place] # (Auto) 0.4, Eos # (Auto) 0.4, Baso # (Auto) 0.0, PT 10.9, INR 0.98, APTT 23.9, Sodium 138, Potassium 3.6, Chloride 102, Carbon Dioxide 28, Anion Gap 11.6, BUN 9, Creatinine 1.00, Estimated Creat Clear 115, Estimated GFR 81, Est GFR ( Amer) 98, Glucose 73 L, Calcium 8.4, Magnesium 2.1, Total Bilirubin 0.4, AST 29, ALT 18, Alkaline Phosphatase 68, Total Protein 7.3, Albumin 3.7, Globulin 3.6 H, Albumin/Globulin Ratio 1.0 L, Lipase 117, Blood Type O Positive, Antibody Screen Negative, Crossmatch (AHG) See Detail 06/30/25 16:22: Blood Type Confirm O Positive Orders (Tests/Meds): ED MEDICATIONS Generic Name Dose Route Start Last Admin Trade Name Freq PRN Reason Stop Dose Admin Escitalopram Oxalate 10 mg 07/01/25 09:00 Escitalopram 10mg Tablet PO 07/31/25 08:59 DAILY ALTHEA Hydrocortisone 0 gm 06/30/25 19:03 Hydrocortisone 2.5% Cream 28gm Tube TP 07/30/25 20:59 BID PRN Hemorrhoids Sodium Chloride 250 mls @ 25 mls/hr 06/30/25 16:00 06/30/25 19:00 Sod Chlor 0.9% 250ml Bag IV 07/01/25 15:59 Infused .Q10H ALTHEA Infusion Iron Sucrose 200 mg/ Sodium 110 mls @ 220 mls/hr 07/01/25 08:00 Chloride IV 07/01/25 08:29 ONCE ONE Sodium Chloride 250 mls @ 25 mls/hr 06/30/25 20:30 06/30/25 23:53 Sod Chlor 0.9% 250ml Bag IV 07/01/25 20:29 Infused .Q10H ALTHEA Infusion Pantoprazole Sodium 40 mg 06/30/25 21:00 06/30/25 20:21 Pantoprazole 40mg Tablet PO 07/30/25 20:59 40 mg HS ALTHEA Administration Prednisone 40 mg 06/30/25 19:39 06/30/25 20:21 Prednisone 20mg Tab PO 06/30/25 19:40 40 mg ONCE ONE Administration Prednisone 40 mg 07/01/25 09:00 Prednisone 20mg Tab PO 07/31/25 08:59 DAILY ALTHEA Discontinued Medications Generic Name Dose Route Start Last Admin Trade Name Freq PRN Reason Stop Dose Admin Acetaminophen 1,000 mg 06/30/25 17:06 06/30/25 17:07 Acetaminophen 500mg Tab PO 06/30/25 17:07 1,000 mg ONCE ONE Administration Hydrocortisone 0 gm 06/30/25 19:01 Hydrocortisone 2.5% Cream 28gm Tube TP 07/30/25 20:59 TID PRN Hemorrhoids Sodium Chloride 1,000 mls @ 999 mls/hr 06/30/25 15:09 06/30/25 16:42 Sod Chlor 0.9% 1000ml Bag IV 06/30/25 16:09 Infused .Q1H1M ONE Infusion ORDERS Category Date Time Status PRBC [Red Blood Cells] Stat BBK 06/30/25 15:18 Completed Type and Screen Stat BBK 06/30/25 15:18 Completed CBC w/Auto Diff [Complete Blood Count Auto Diff] Stat Lab 06/30/25 15:18 Completed CMP [Comprehensive Metabolic Panel] Stat Lab 06/30/25 15:18 Completed Complete Blood Count Auto Diff AMLAB Lab 07/01/25 06:00 Ordered Comprehensive Metabolic Panel AMLAB Lab 07/01/25 06:00 Ordered Lactic Acid Stat Lab 06/30/25 20:02 Completed Lipase Stat Lab 06/30/25 15:18 Completed Magnesium AMLAB Lab 07/01/25 06:00 Ordered Magnesium Stat Lab 06/30/25 15:18 Completed PT/INR [Prothrombin Time INR] Stat Lab 06/30/25 15:18 Completed PTT [Activated Partial Thrombo Time] Stat Lab 06/30/25 15:18 Completed Urinalysis and Microscopic Stat Lab 06/30/25 15:09 Ordered ECG Data Tracing #1: I reviewed this ECG and interpreted as documented below: EKG personally interpreted by me demonstrates sinus tachycardia at a rate of 100 bpm, normal axis, no CT prolongation, narrow QRS, no QTc prolongation. No ST elevation or depression. No overt signs of ischemia or arrhythmia. There is subtle T wave inversions in lead III. Medical Decision Narrative: Initial impression of presenting illness: 45-year-old male with a history of ulcerative colitis presents emergency department with complaints of ongoing rectal bleeding with generalized weakness and fatigue. He reports that he has been having rectal bleeding with diarrhea. He reports that the number of diarrhea episodes daily has improved from 10 down to 3-4 however he is still having rectal bleeding. he reports that he was seen at [facility] 2 weeks ago for the same complaint. He reports that his hemoglobin hematocrit were low at that time but not low enough for his transfusion. Differential diagnosis includes but is not limited to: Anemia, low iron, UC flare, dehydration Patient arrives hemodynamically stable, afebrile, without respiratory distress with vital signs interpreted by myself. Initial physical exam reveals mild diffuse tenderness on palpation of abdomen with normal active bowel sounds. Rest of exam is unremarkable Initial diagnostic plan: Abdominal pain workup including type and screen. Will hold on CT scanning as patiently recently had a CT scan at [facility]. Results from initial plan were reviewed and interpreted by myself, pertinent positives include: Hemoglobin 6.2, hematocrit 19.7, rest of laboratory studies were nonactionable. Interventions in the ED: Patient was given normal saline bolus for hydration. He was also given 1 unit of packed red blood cells. Patient was made aware of the results and the findings, upon reevaluation patient has remained stable throughout stay, symptoms remained stable. Upon reevaluation patient is resting comfortably in bed. At the time of his note patient had not yet started his blood transfusion as nursing staff was waiting for notification from blood bank that the unit was ready. Consultation/discussion with other physicians: Spoke with GI provider Dr. Loredo regarding patient's presenting complaint and workup findings. He recommended admitting patient to this facility. So recommended giving an iron infusion and states he will see the patient tomorrow for further evaluation. I then spoke with hospitalist Dr. Bowen who was agreeable to accept patient for further treatment. Disposition: Reviewed findings today's workup with patient and informed him that we would like to admit as his hemoglobin is low and he is needing blood transfusion. Informed him of Dr. Loredo recommendations to also give an iron transfusion. Agreeable for admission at this time. I was consulted by the [facility], and we discussed the complexity of problems being addressed. I approved the treatment and management plan for this patient's care in the emergency department, thus performing a substantive portion of the medical decision making. Patient was administered a unit of blood while here in the emergency department for his anemia. He was monitored with continuous telemetry and serial vital signs for monitoring of clinical deterioration. He tolerated transfusion well and was ultimately admitted to the floor at the direction of Dr. Loredo. Reji Laughlin DO Critical Care <Latisha Zapata - Last Filed: 06/30/25 16:43> Critical Care Time Critical Care Time: No <Reji Laughlin DO - Last Filed: 07/01/25 00:18> Critical Care Time Critical Care Time: Yes Attestation: On 06/30/25, the high probability of a clinically significant, sudden or life threatening deterioration of the following system(s) required my full and direct attention, intervention and personal management. The time I documented below is in addition to time spent performing reported procedures but includes the following listed in this critical care notation. Total Time Total Critical Care Time: 60
--- OUTSIDE RECORDS SUMMARY | 2025-06-30 15:03 | XMS_ITS | Encounter Summary ---
Author Organization Healthcare Address [address] [id number] Care Team Providers Care Cpa Tax Name Role Phone Ximena Swenson ALFONZO Primary Care Provider [phone] Encounter Details Date Type Department Care Team (Latest Contact Info) Description 06/20/2025 Travel Social History Tobacco Use Types Packs/Day Years [...] on file documented as of this encounter Functional Status * Calculated C-SSRS Risk Score (Lifetime/Recent) Answer Date of Assessment Author No Risk Indicated 06/20/2025 4:30 PM EDT Jose M Alejandro RN * Question Answer Date of Assessment Author 1. Wish to be (Past 1 Month) No 06/20/2025 4:30 PM EDT Kong Alejandro, RN 2. Non-Specific Active Suicidal Thoughts (Past 1 Month) No 06/20/2025 4:30 PM EDT Kong Alejandro RN 6. Suicidal Behavior (Lifetime) No 06/20/2025 4:30 PM EDT Kong Alejandro, RN documented as of this encounter Plan of Treatment Not on file documented as of this encounter Visit Diagnoses Not on filedocumented in this encounter Additional Health Concerns Infection Onset Date Last Indicated Resolved Time Gastrointestinal Rule-Out 06/20/2025 06/20/2025 7:41 PM EDT COVID-19 Rule-Out 06/20/2025 06/20/2025 06/20/2025 7:24 PM EDT Assessment Noted Time A Body Mass Index follow-up plan has been documented for the patient 07/29/2023 9:05 PM EST documented as of this encounter Care Teams Cpa Tax Relationship Specialty Start Date End Date Ximena Swenson APRN [address] [place] [address] PCP - General 07/07/23 documented as of this encounter
--- OUTSIDE RECORDS SUMMARY | 2025-06-30 15:03 | XMS_ITS | Encounter Summary ---
Author Organization [facility] Address [address] [place] [address] Care Team Providers Care Bus Matron Name Role Phone Ximena Swenson APRN Primary Care Provider + Encounter Details Date Type Department Care Team ([facility] st Contact Info) Description 06/27/2023 Community [facility] [address] [place] [address] Ximena Swenson APRN [address] [place] [address] (Fax) Closed fracture of maxillary sinus with [...] subsequent encounter- Primary documented in this encounter Additional Health Concerns Infection Onset Date Last Indicated Resolved Time Gastrointestinal Rule-Out 06/20/2025 06/20/2025 7:41 PM EDT COVID-19 Rule-Out 06/20/2025 06/20/2025 06/20/2025 7:24 PM EDT documented as of this encounter Care Teams Bus Matron Relationship Specialty Start Date End Date Ximena Swenson APRN [address] [place] [address] (Fax) PCP - General 07/07/23 documented as of this encounter
--- OUTSIDE RECORDS SUMMARY | 2025-06-30 15:03 | XMS_ITS | Clinical Summary ---
Author Organization [facility] Address [address] [place] [address] Care Team Providers Care Ballet Teacher Name Role Phone Ximena Swenson ALFONZO Primary Care Provider [phone] Allergies No known active allergies Medications loratadine (Claritin) 10 MG tablet Take 1 tablet (10 mg) by mouth 1 (one) time each day. Active buPROPion (Wellbutrin) 75 MG tablet Take 50 mg by mouth 2 (two) times a day. Active rosuvastatin (Crestor) 20 MG tablet Take 1 tablet (20 mg) by mouth every night. Active dicyclomine (Bentyl) 20 MG tablet Take 1 tablet by mouth 4 times a day as needed (abdominal cramping). 20 tablet 06/20/2025 5 Active Active Problems Problem Noted Date Diagnosed Date Injury of face 07/07/2023 Encounters Date Type Department Care Team Description 06/20/2025 3:57 PM EDT - 06/20/2025 8:05 PM EDT Emergency [facility] [address] [place] [address] Chris Chiu MD Generalized abdominal pain (Primary Dx); Other ulcerative colitis with rectal bleeding (CMS/HCC) Discharge Disposition: Home or Self Care 06/20/2025 Travel from Last 3 Months Family History Medical History Relation Name Comments [...] (200 lb) 06/20/2025 3:07 PM EDT Height 190.5 cm (6' 3 ) 07/19/2023 10:41 AM EDT Body Mass Index 25 07/19/2023 10:41 AM EDT Plan of Treatment Health Maintenance Due Date Last Done Comments [facility]-Depression Screening 1981 [facility]-Infant/Child/Adol SDOH Screenings 1981 [facility]-Varicella Vaccines (1 of 2 - 13+ 2-dose series) 1994 [facility]- SDOH Screenings 1999 [facility]-Adult SDOH Screenings 1999 [facility]-DTaP,Tdap,and Td Vaccines (1 - Tdap) 2000 [facility]-Hepatitis B Vaccines (1 of 3 - 19+ 3-dose series) 2000 HPV Vaccines (1 - 3-dose SCDM series) 2008 [id number]-07 Vaccine ( season) 2025 10/24/2022, 05/12/2021, 04/21/2021 [facility]-Influenza Vaccine (#1) 05/19/202506/24, 06/28/2023, 10/24/2022 [facility]-Zoster Vaccines (1 of 2) 2031 [facility]-HIV Screening Completed 06/20/2025 [facility]-Hepatitis C Screening Completed 06/20/2025 [facility]-HIB Vaccines Aged Out No longer e [...] this topic Medical Devices Implanted Type Area Dredge Operator Supervisor Device Identifier Shelf Expiration Date Model / Serial / Lot Plate Matric Orbital Rim Plate 12 Holes 0.5mm - [id number] Implanted:Qty: 1 on 07/13/2023 by Tawanda Lucero MD at [facility] Left: Face [employer] [id number] 07/13/2024 [id number] / / Plate Matric Orbital Rim Plate 12 Holes 0.7mm - [id number] Implanted:Qty: 1 on 07/13/2023 by Tawanda Lucero MD at [facility] Left: Face [employer] [id number] 503.373 / / Plate Matric Oblique L-Pl 3x4 Holes-Left/0.7 mm - [id number] Implanted:Qty: 1 on 07/13/2023 by Tawanda Lucero MD at [facility] Left: Face [employer] [id number] 503.355 / / Screw Matrix Self-Drill 5mm - [id number] Implanted:Qty: 13 on 07/13/2023 by Tawanda Lucero MD at [facility] Left: Face [employer] [id number] .01 / / Screw Matrix Emergency Screw 5mm - [id number] Implanted:Qty: 1 on 07/13/2023 by Tawanda Lucero MD at [facility] Left: Face [employer] [id number] 235 .01 / / Explanted Type Area Dredge Operator Supervisor Device Identifier Shelf Expiration Date Model / Serial / Lot Screw Matrix Emergency Screw 5mm - [id number] Explanted:Qty: 1 on 07/13/2023 at [facility] Left: Face [employer] [id number] 235 .01 / / Procedures Procedure Name Priority Date/Time Associated Diagnosis Comments SARS-COV-2, FLU A, FLU B, AND RSV - RAPID STAT 06/20/2025 6:[address] ABDOMEN PELVIS W IV CONTRAST STAT 06/20/2025 5:36 PM EDT CALPROTECTIN, FECAL BY IMMUNOASSAY (SO) STAT 06/20/2025 5:18 PM EDT COMPREHENSIVE GI PANEL BY PCR STAT 06/20/2025 5:18 PM EDT FECAL LACTOFERRIN STAT 06/20/2025 5:1 8 PM EDT ED HIV 1/2 ANTIBODY/ANTIGEN SCREEN WITH REFLEX TO HIV I/II DIFFERENTIATION STAT 06/20/2025 3:56 PM EDT ED PROTOCOL HIV 1/2 ANTIBODY/ANTIGEN SCREEN W/REFLEX TO HIV 1/2 ANTIBODY DIFFERENTIATION STAT 06/20/2025 3:56 PM EDT HEPATITIS C ANTIBODY - ED W/REFLEX TO HCV QUANT PCR STAT 06/20/2025 3:56 PM EDT LACTATE, VENOUS STAT 06/20/2025 3:56 PM EDT CBC WITH AUTO DIFFERENTIAL STAT 06/20/2025 3:56 PM EDT LIPASE, PLASMA STAT 06/20/2025 3:56 PM EDT COMPREHENSIVE METABOLIC PANEL, PLASMA STAT 06/20/2025 3:56 PM EDT from Last 3 Months Results * SARS-CoV-2, Flu A, Flu B, and RSV - Rapid (06/20/2025 6:22 PM EDT) SARS CoV-2/COVID-19 RNA PCR Result Not Detected Not Detected 06/20/2025 7:24 PM EDT [facility] Influenza A Virus PCR Result Not Detected Not Detected 06/20/2025 7:24 PM EDT [facility] Influenza B Virus PCR Result Not Detected Not Detected 06/20/2025 7:24 PM EDT [facility] Respiratory Syncytial Virus (RSV) PCR Result Not Detected Not Detected 06/20/2025 7:24 PM EDT [facility] Swab Nasopharyngeal structure / Unknown Non-blood Collection / Unknown 06/20/2025 6:22 PM EDT 06/20/2025 6:36 PM EDT Narrative [facility] - 06/20/2025 7:24 PM EDT [...] MICROBIOLOGY - GENERAL ORDER SANDRA Final Result [facility] [address] [place] [address] * CT Abdomen Pelvis w IV Contrast [...] on 06/20/2025 6:49 PM Chris Chiu MD [facility] CT PROCEDURES Final Result * Comprehensive GI Panel by PCR (06/20/2025 5:18 PM EDT) Campylobacter PCR Result Not Detected Not Detected 06/20/2025 9:37 PM EDT [facility] Plesiomonas shigelloides PCR Result Not Detected Not Detected 06/20/2025 9:37 PM EDT [facility] Salmonella PCR Result Not Detected Not Detected 06/20/2025 9:37 PM EDT [facility] Vibrio species PCR Result Not Detected Not Detected 06/20/2025 9:37 PM EDT [facility] Vibrio cholerae PCR Result Not Detected Not Detected 06/20/2025 9:37 PM EDT [facility] Yersinia enterocolitica PCR Result Not Detected Not Detected 06/20/2025 9:37 PM EDT [facility] Enteroaggregative E. coli (EAEC) PCR Result Not Detected Not Detected 06/20/2025 9:37 PM EDT [facility] Enteropathogenic E. coli (EPEC) PCR Result Not Detected Not Detected 06/20/2025 9:37 PM EDT [facility] Enterotoxigenic E. coli (ETEC) lt/st PCR Result Not Detected Not Detected 06/20/2025 9:37 PM EDT [facility] Shiga-like Toxin-Producing E.coli (STEC) stx1/stx2 PCR Resu Not Detected Not Detected 06/20/2025 9:37 PM EDT [facility] E coli 0157 PCR Result Not Detected Not Detected 06/20/2025 9:37 PM EDT [facility] Shigella/Enteroinvas stanislav E. coli (EIEC) PCR Result Not Detected Not Detected 06/20/2025 9:37 PM EDT [facility] Cryptosporidium PCR Result Not Detected Not Detected 06/20/2025 9:37 PM EDT [facility] Cyclospora cayetanensis PCR Result Not Detected Not Detected 06/20/2025 9:37 PM EDT [facility] Entamoeba histolytica PCR Result Not Detected Not Detected 06/20/2025 9:37 PM EDT [facility] Giardia duodenalis (aka Giardia lamblia) PCR Result Not Detected Not Detected 06/20/2025 9:37 PM EDT [facility] Adenovirus F 40/41 PCR Result Not Detected Not Detected 06/20/2025 9:37 PM EDT [facility] Astrovirus PCR Result Not Detected Not Detected 06/20/2025 9:37 PM EDT [facility] Norovirus GI/GII PCR Result Not Detected Not Detected 06/20/2025 9:37 PM EDT [facility] Rotavirus A PCR Result Not Detected Not Detected 06/20/2025 9:37 PM EDT [facility] Sapovirus PCR Result Not Detected Not Detected 06/20/2025 9:37 PM EDT [facility] Stool Rectum structure / Unknown Non-blood Collection / Unknown 06/20/2025 5:18 PM EDT 06/20/2025 5:43 PM EDT Narrative [facility] - 06/20/2025 9:37 PM EDT [...] MICROBIOLOGY - GENERAL ORDER SANDRA Final Result [facility] [address] [place] [address] * (ABNORMAL) Fecal Lactoferrin (06/20/2025 5:18 PM EDT) Fecal Lactoferrin Result Positive( A) Negative 06/21/2025 6:07 AM EDT [facility] Stool Rectum structure / Unknown Non-blood Collection / Unknown 06/20/2025 5:18 PM EDT 06/20/2025 5:43 PM EDT Narrative [facility] - 06/21/2025 6:07 AM EDT NOTE: If patient is a breastfed child, results may be falsely positive. us Chris Chiu MD LAB MICROBIOLOGY - GENERAL ORDER SANDRA Final Result Performing Organization Address City/[facility]/ZIP Co de Phone Number [facility] [address] [place] [address] * (ABNORMAL) Calprotectin, Stool (06/20/2025 5:18 PM EDT) CALPROTECTIN 2120(H) <=49 ug/g 06/25/2025 3:24 PM EDT [facility] Stool Stool specimen / Unknown Non-blood Collection / Unknown 06/20/2025 5:18 PM EDT 06/20/2025 7:02 PM EDT Narrative [facility] - 06/25/2025 3:24 PM EDT REFERENCE INTERVAL: Calprotectin, Fecal by Immunoassay Less than 50 ug/g........Normal 50-120 ug/g..............Borderline elevated, test should be re-evaluated in 4-6 weeks. 121 ug/g or greater......Elevated Performed By: [facility] [address] [place] [address] Pot Puller: Jerman Elias MD, PhD CLIA Number: [id number] us Chris Chiu MD LAB BODY FLUIDS AND STOOLS ORDER SANDRA [facility] Result [facility] [address] [place] [address] * ED HIV 1/2 Antibody/Antigen Screen w/Reflex to HIV 1/2 Differentiation (06/20/2025 3:56 PM EDT) Pathologist [facility] [place] HIV 1 & 2 Antibody/Antigen Screen Non Reactive Non Reactive 06/20/2025 4:53 PM EDT [facility] Comment:Screening for HIV 1 & 2 antibodies, and P24 antigen is NONREACTIVE. No confirmatory testing is required. Blood Venous blood specimen / Unknown Venipuncture / Unknown 06/20/2025 3:56 PM EDT 06/20/2025 4:13 PM EDT us Chris Chiu MD LAB BLOOD ORDERABLES Final Resul t [facility] [address] [place] [place] [address] * Lactic acid, venous (06/20/2025 3:56 PM EDT) [facility] Lactate, Venous, Whole Blood 0.8 0.5 - 2.2 mmol/L LAB HEMATOLOGY METHOD 06/20/2025 4:09 PM EDT [facility] Blood Venous blood specimen / Unknown Venipuncture / Unknown 06/20/2025 3:56 PM EDT 06/20/2025 4:07 PM EDT us Chris Chiu MD LAB BLOOD ORDERABLES Final Resul t [facility] [address] [place] [address] * Hepatitis C Antibody - ED (06/20/2025 3:56 PM EDT) [facility] Hepatitis C Antibody Negative Negative 06/20/2025 4:53 PM EDT [facility] Blood Venous blood specimen / Unknown Venipuncture / Unknown 06/20/2025 3:56 PM EDT 06/20/2025 4:13 PM EDT us Chris Chiu MD LAB BLOOD ORDERABLES Final Resul t Performing Organization Address City/[facility]/ZIP Co de Phone Number [facility] [address] [place] [address] * (ABNORMAL) CBC w/diff (06/20/2025 3:56 PM EDT) [facility] WBC Count 9.11 3.70 - 10.30 10*3/uL LAB HEMATOLOGY METHOD 06/20/2025 4:09 PM EDT [facility] RBC Count 3.46(L) 4.60 - 6.10 10*6/uL LAB HEMATOLOGY METHOD 06/20/2025 4:09 PM EDT [facility] HGB 9.0(L) 13.7 - 17.5 g/dL LAB HEMATOLOGY METHOD 06/20/2025 4:09 PM EDT [facility] HCT 28.5(L) 40.0 - 51.0 % LAB HEMATOLOGY METHOD 06/20/2025 4:09 PM EDT [facility] Platelet Count 335 155 - 369 10*3/uL LAB HEMATOLOGY METHOD 06/20/2025 4:09 PM EDT [facility] MCV 82 79 - 98 fL LAB HEMATOLOGY METHOD 06/20/2025 4:09 PM EDT [facility] MCH 26.0 26.0 - 32.0 pg LAB HEMATOLOGY METHOD 06/20/2025 4:09 PM EDT [facility] MCHC 31.6 30.7 - 35.5 g/dL LAB HEMATOLOGY METHOD 06/20/2025 4:09 PM EDT [facility] RDW 13.8 11.5 - 14.5 % LAB HEMATOLOGY METHOD 06/20/2025 4:09 PM EDT [facility] MPV 9.1 8.8 - 12.5 fL LAB HEMATOLOGY METHOD 06/20/2025 4:09 PM EDT [facility] nRBC 0.0 <=0.0 per 100 WBCs LAB HEMATOLOGY METHOD 06/20/2025 4:09 PM EDT [facility] Differential Type Automated LAB HEMATOLOGY METHOD 06/20/2025 4:09 PM EDT [facility] Neutrophils % 76 % LAB HEMATOLOGY METHOD 06/20/2025 4:09 PM EDT [facility] Lymphocytes % 13 % LAB HEMATOLOGY METHOD 06/20/2025 4:09 PM EDT [facility] Monocytes % 6 % LAB HEMATOLOGY METHOD 06/20/2025 4:09 PM EDT [facility] Eosinophils % 4 % LAB HEMATOLOGY METHOD 06/20/2025 4:09 PM EDT [facility] Basophils % 0 % LAB HEMATOLOGY METHOD 06/20/2025 4:09 PM EDT [facility] Immature Granulocytes % 1 % LAB HEMATOLOGY METHOD 06/20/2025 4:09 PM EDT [facility] Neutrophils Absolute 6.94(H) 1.60 - 6.10 10*3/uL LAB HEMATOLOGY METHOD 06/20/2025 4:09 PM EDT [facility] Lymphocytes Absolute 1.20 1.20 - 3.90 10*3/uL LAB HEMATOLOGY METHOD 06/20/2025 4:09 PM EDT [facility] Monocytes Absolute 0.54 0.30 - 0.90 10*3/uL LAB HEMATOLOGY METHOD 06/20/2025 4:09 PM EDT [facility] Eosinophils Absolute 0.35 0.00 - 0.50 10*3/uL LAB HEMATOLOGY METHOD 06/20/2025 4:09 PM EDT [facility] Basophils Absolute 0.03 0.00 - 0.10 10*3/uL LAB HEMATOLOGY METHOD 06/20/2025 4:09 PM EDT [facility] Immature Granulocytes Absolute 0.05 0.00 - 0.06 10*3/uL LAB HEMATOLOGY METHOD 06/20/2025 4:09 PM EDT [facility] Blood Venous blood specimen / Unknown Venipuncture / Unknown 06/20/2025 3:56 PM EDT 06/20/2025 4:07 PM EDT Narrative [facility] - 06/20/2025 4:09 PM EDT Therapeutic decision making should be based on absolute values, rather than percentages. us Chris Chiu MD LAB BLOOD ORDERABLES Final Resul t Performing Organization Address [facility]/ZIP Co de Phone Number [facility] [address] [place] [address] * Lipase (06/20/2025 3:56 PM EDT) Lipase, Plasma 26 19 - 63 U/L 06/20/2025 4:28 PM EDT [facility] Blood Venous blood specimen / Unknown Venipuncture / Unknown 06/20/2025 3:56 PM EDT 06/20/2025 4:07 PM EDT us Chris Chiu MD LAB BLOOD ORDERABLES Final Resul t [facility] [address] [place] [address] * (ABNORMAL) CMP (06/20/2025 3:56 PM EDT) Glucose, Plasma 114(H) 74 - 99 mg/dL 06/20/2025 4:28 PM EDT [facility] BUN, Plasma 10 7 - 21 mg/dL 06/20/2025 4:28 PM EDT [facility] Creatinine, Plasma 0.92 0.70 - 1.20 mg/dL 06/20/2025 4:28 PM EDT [facility] BUN/Creatinine Ratio 11 06/20/2025 4:28 PM EDT [facility] Sodium, Plasma 136 136 - 145 mmol/L 06/20/2025 4:28 PM EDT [facility] Potassium, Plasma 3.6 3.6 - 4.9 mmol/L 06/20/2025 4:28 PM EDT [facility] Chloride, Plasma 101 97 - 107 mmol/L 06/20/2025 4:28 PM EDT [facility] CO2, Plasma 24 22 - 29 mmol/L 06/20/2025 4:28 PM EDT [facility] Anion Gap 11 6 - 16 mmol/L 06/20/2025 4:28 PM EDT [facility] Total Calcium, Plasma 8.6(L) 8.9 - 10.2 mg/dL 06/20/2025 4:28 PM EDT [facility] Total Protein 7.1 6.3 - 7.9 g/dL 06/20/2025 4:28 PM EDT [facility] Albumin, Plasma 3.8 3.5 - 5.2 g/dL 06/20/2025 4:28 PM EDT [facility] AST, Plasma 15 10 - 50 U/L 06/20/2025 4:28 PM EDT [facility] ALT, Plasma 11 10 - 50 U/L 06/20/2025 4:28 PM EDT [facility] Alkaline Phosphatase, Plasma 59 40 - 115 U/L 06/20/2025 4:28 PM EDT [facility] Total Bilirubin, Plasma 0.4 0.2 - 1.1 mg/dL 06/20/2025 4:28 PM EDT [facility] eGFRcr 105.2 mL/min/1.7 3m*2 06/20/2025 4:28 PM EDT [facility] Comment:Reported eGFRcr in m L/min/1.73m2 is based the CKD-EPI 2020 equation that does not use a race coefficient. Blood Venous blood specimen / Unknown Venipuncture / Unknown 06/20/2025 3:56 PM EDT 06/20/2025 4:07 PM EDT us Chris Chiu MD LAB BLOOD ORDERABLES Final Resul t [facility] [address] [place] [address] from Last 3 Months Insurance [employer] Care Teams Ballet Teacher Relationship Specialty Start Date End Date Ximena Swenson APRN [address] [place] [address] PCP - General 07/07/23
--- NOTE | 2025-06-30 15:10 | ECG_ITS ---
APPROVED REPORT Exam: Resting ECG HR:100 bpm ECG Measurements Heart Rate 100 AXES MO 148 P 53 QRSd 94 QRS 70 QT 336 T 22 QTc 393 Conclusion Sinus tachycardia Normal axis Normal intervals No STEMI Electronically signed by : Reji Laughlin, 07/01/2025 00:38:59
[2025-06-30] MEDS: 0.9 % SODIUM CHLORIDE 1000ML 1,000 ML 999 ML IV (15:23)
[2025-06-30 15:39] LABS: Immature Granulocytes % 0.7 %; Mean Corpuscular HGB Conc 31.5 g/dL (31.8-35.4); Mean Corpuscular Hemoglobin 25.5 pg (27.0-31.2); Mean Corpuscular Volume 81.1 fl (80-94); Nucleated Red Blood Cells % 0 %; Platelet Count 473 K/mm3 (142-424); Red Blood Count 2.43 M/mm3 (4.60-6.20); Red Cell Distribution Width-SD 43.1 fL; White Blood Count 7.5 K/mm3 (4.8-10.8)
[2025-06-30 15:40] LABS: Hemoglobin 6.2 g/dL (14.1-18.0)
[2025-06-30 15:41] LABS: Hematocrit 19.7 % (42.0-52.0)
[2025-06-30 15:51] LABS: Albumin Level 3.7 g/dl (3.5-5.0); Chloride 102 mmol/L (98-107); Potassium 3.6 mmoL/L (3.5-5.1); Sodium 138 mmol/L (136-145)
[2025-06-30 15:53] LABS: Blood Urea Nitrogen 9 mg/dl (9-20); Creatinine Clearance Estimated 115 mL/min (50-200); Creatinine,Serum 1.00 mg/dl (0.66-1.25); Estimated Glomerular Filt Rate 81 ml/min (>60); GFR (African American) 98 ML/MIN (>60)
[2025-06-30 15:54] LABS: Alanine Aminotransferase 18 U/L (12-78); Albumin/Globulin Ratio 1.0 (1.1-1.8); Alkaline Phosphatase 68 U/L (38-126); Anion Gap 11.6 mEq/L (5-15); Aspartate Amino Transferase 29 U/L (17-59); Bilirubin,Total 0.4 mg/dl (0.2-1.3); Calcium 8.4 mg/dl (8.4-10.2); Carbon Dioxide 28 mmol/L (22.0-30.0); Globulin 3.6 g/dL (1.3-3.2); Glucose 73 mg/dl (74-100); Lipase 117 U/L (23-300); Magnesium 2.1 mg/dl (1.6-2.3); Total Protein,Serum 7.3 g/dl (6.3-8.2)
[2025-06-30 16:09] LABS: Activated Partial Thrombo Time 23.9 seconds (22.8-30.6); INR 0.98 (0.9-1.1); Prothrombin Time 10.9 seconds (10.1-12.5)
--- NOTE | 2025-06-30 16:58 | PC.NURSE ---
HS notified of the need for a bed to admit the pt to the hospitalist for anemia with ulcerative colitis.
[2025-06-30] MEDS: ACETAMINOPHEN 500MG TAB 1000 MG PO (17:07)
[2025-06-30] MEDS: 0.9 % SODIUM CHLORIDE 250 ML 25 ML IV ×2 (17:12→23:51)
--- NOTE | 2025-06-30 17:16 | EXP.HP ---
History of Present Illness *Admission Date: 06/30/25 *Reason for visit:: weakness, SOA *History of present illness: 45-year-old male with recent diagnosis of ulcerative colitis in May. Presents with worsening weakness over the past few weeks. States he gets short of breath with exertion and is unable to walk very far without dyspnea and fatigue. Occasionally getting dizzy. Concern he might be having a UC flare. Having bloody bowel movements for the past 2 to 3 months. They are decreasing in frequency but still happening most days. Thinks there is a component of his hemorrhoids. States that they stopped pretty easily after a bowel movement. Denies fever, cough, shortness of breath, nausea or vomiting. Still having some mild abdominal pain but getting better. Follows with Dr. Loredo. Workup in the ER with hemoglobin of 6.2, hematocrit 19.7. Typed and screened for blood transfusion. Medicine consulted for admission and further management. Alert and oriented x 4 and on room air on evaluation after arriving to the floor. [facility] Disclaimer: The information contained in this section may have been updated after the patient was seen, as this information can be updated by other users. Medical History Heartburn Colitis Anxiety History of COVID-19 Migraine Allergies Surgical History History of facial surgery Family History Grandfather Cancer Other Heart disease Social History Smoking Status: Never smoker smoking status start date: June 2023 years smoked: 25 second hand exposure: Yes alcohol intake: current alcohol intake frequency: a few times a month substance use type: denies use current occupational status: employed Travel in the last 8 weeks?: None household members: family housing: house marital status: caffeine: Yes physical activity: walking do you feel safe at home: Yes victim of physical abuse: No victim of emotional abuse: No victim of sexual abuse: No would you like helpful sources: No Have you lived/traveled outside [place] in past 30 days?: No Contact w/someone who lives/traveled outside [place] past 30 days?: No Exposure to someone with infectious disease in past 14 days?: No Do you have a fever (greater than 100.4 F or 38 C)?: No Have you tested positive for COVID-19?: No Exposed to someone with COVID-19 in past 14 days?: No Do you have a sore throat?: No Do you have a cough?: No Do you have any weakness?: No Are you experiencing any nausea/vomitting?: No Do you have any diarrhea?: No Are you experiencing any unusual bleeding?: No Do you have any muscle aches/pain?: No Do you have any abdominal pain?: No Are you experiencing loss of taste or smell?: No Other Medical History Have you received the Pneumonia Vaccine: No Review of Systems Review of Systems Review of systems (narrative): 14 point review of systems performed, pertinent positives and negatives as per HPI Constitutional Constitutional: Reports weakness *Neurologic Neurologic: Reports weakness Meds Home Medications and Allergies Home Medications ?Medication ?Instructions ?Recorded ?Confirmed ?Type escitalopram oxalate 10 mg tablet 10 mg PO DAILY 12/29/23 06/30/25 History loratadine 10 mg tablet (Claritin) 10 mg PO DAILY 12/29/23 06/30/25 History omeprazole 40 mg capsule,delayed 40 mg PO DAILY #90 caps 10/07/24 06/30/25 Rx release rosuvastatin 20 mg tablet 20 mg PO DAILY 10/07/24 06/30/25 History guselkumab 200 mg/2 mL 200 mg SQ MONTHLY 06/30/25 06/30/25 History subcutaneous syringe (Tremfya) rizatriptan 10 mg tablet 10 mg PO Q2H PRN Migraine Headache 06/30/25 06/30/25 History New Prescriptions to Start Prescriptions: Allergies Allergy/AdvReac Type Severity Reaction Status Date / Time No Known Allergies Allergy Verified 05/21/25 10:14 Exam Data for Last 24 hours Vital signs and Labs for Last 24 Hours: Temp Pulse Resp BP Pulse Ox O2 Del Method 98.1 F 98 H 14 138/88 100 Room Air 06/30/25 17:15 06/30/25 17:15 06/30/25 17:15 06/30/25 17:15 06/30/25 17:15 06/30/25 16:00 Laboratory Results - last 24 hr 06/30/25 15:18: WBC 7.5, RBC 2.43 L, Hgb 6.2 L*, Hct 19.7 L*, MCV 81.1, MCH 25.5 L, MCHC 31.5 L, RDW 14.4, Plt Count 473 H, MPV 8.8, Neut % (Auto) 67.6, Lymph % (Auto) 21.8, Donley % (Auto) 4.8, Eos % (Auto) 4.8, Baso % (Auto) 0.3, Neut # (Auto) 5.1, Lymph # (Auto) 1.6, Donley # (Auto) 0.4, Eos # (Auto) 0.4, Baso # (Auto) 0.0, PT 10.9, INR 0.98, APTT 23.9, Sodium 138, Potassium 3.6, Chloride 102, Carbon Dioxide 28, Anion Gap 11.6, BUN 9, Creatinine 1.00, Estimated Creat Clear 115, Estimated GFR 81, Est GFR ( Amer) 98, Glucose 73 L, Calcium 8.4, Magnesium 2.1, Total Bilirubin 0.4, AST 29, ALT 18, Alkaline Phosphatase 68, Total Protein 7.3, Albumin 3.7, Globulin 3.6 H, Albumin/Globulin Ratio 1.0 L, Lipase 117, Blood Type O Positive, Antibody Screen Negative, Crossmatch (AHG) See Detail 06/30/25 16:22: Blood Type Confirm O Positive I & O for Last 24 hours: Intake & Output 06/27/25 06/28/25 06/29/25 06/30/25 23:59 23:59 23:59 23:59 Intake Total 1000 / 1000 Balance 1000 / 1000 Weight 86.183 kg Constitutional Constitutional: mild distress, thin, chronically ill appearing and cooperative *Routine HEENT Exam Head: Present normocephalic Eye: Present EOMI and PERRL ENT: Present mucous membranes moist *Routine Neck Exam Neck: Present supple *Routine Respiratory Exam Respiratory: Present CTA bilaterally; Absent rhonchi, wheezes or crackles *Routine Cardiovascular Exam Cardiovascular: Present RRR *Routine Abdominal Exam Abdominal: Present soft, normoactive bowel sounds and tenderness (Nonfocal, worse in suprapubic region); Absent distended or rebound *Routine Rectal Exam Rectal:: deferred *Routine Genitalia Exam Genitalia:: deferred *Routine Extremities Exam Extremities: Absent cyanosis, clubbing or edema *Routine Skin Exam Skin: Present intact, pallor and warm; Absent rash *Routine Neurological Exam Neurological: Present alert, oriented X3 and moving all extremities; Absent altered mental status Assessment and Plan *Assessment and plan (1) Ulcerative colitis with rectal bleeding: Status: Acute Qualifiers: Ulcerative colitis location: ulcerative rectosigmoiditis Qualified Code(s): K51.311 - Ulcerative (chronic) rectosigmoiditis with rectal bleeding Category: Medical Code(s): K51.911 - Ulcerative colitis, unspecified with rectal bleeding (2) Anemia: Problem Comment: acute on chronic blood loss anemia Status: Acute Qualifiers: Anemia type: iron deficiency Iron deficiency anemia type: chronic blood loss Qualified Code(s): D50.0 - Iron deficiency anemia secondary to blood loss (chronic) Category: Medical Code(s): D64.9 - Anemia, unspecified (3) Bloody stools: Status: Acute Category: Medical Code(s): K92.1 - Melena (4) Gastroesophageal reflux disease: Status: Chronic Qualifiers: Esophagitis presence: esophagitis presence not specified Qualified Code(s): K21.9 - Gastro-esophageal reflux disease without esophagitis Category: Medical Code(s): K21.9 - Gastro-esophageal reflux disease without esophagitis Plan 45-year-old male with recent diagnosis of ulcerative colitis. Currently on Tremfya. Presents with weakness. Found to be profoundly anemic. Discussed case with ER physician, request admission for transfusion and GI consult. I decided to admit for further care. Receiving transfusion. Necessitating inpatient care. GI to evaluate in the morning. Problems addressed as follows: Ulcerative colitis Acute on chronic anemia, secondary to blood loss - Patient had scope performed on 05/21. Found to have moderate left-sided ulcerative colitis. Initiated on immunotherapy with Tremfya. States his mesalamine was discontinued at that time. - Last hemoglobin 14.7 in February. Hemoglobin now 6.2. Hematocrit 19.7. Having blood loss per rectum. Diagnosed recently with ulcerative colitis. Patient also has hemorrhoids. - Admitted for transfusion. Receiving 1 unit packed red blood cells. Will administer 200 mg IV iron in the morning. - GI consulted to evaluate with possible scope to evaluate source of bleeding. Repeat H&H 2 hours after transfusion. Repeat CBC, CMP, magnesium ordered for the morning. -Prednisone 40 mg p.o. once, continue 40 mg daily. - Low concern for upper GI bleed given BUN of 9, creatinine 1.0. Potassium 3.6. - White count normal at 7.3. - States he is feeling better after starting Tremfya. Not actively taking mesalamine at this time. - Initiate hydrocortisone topical for hemorrhoid History of GERD: Continue PPI nightly. Anxiety: Continue Lexapro 10 mg daily Full code Anticoagulation contraindicated in the setting of blood loss anemia, SCDs for VTE Clear liquids until midnight, n.p.o. thereafter
--- NOTE | 2025-06-30 17:34 | PC.NURSE ---
Report called to Sarah Guevara RN @ [phone]
--- NOTE | 2025-06-30 17:43 | PC.NURSE ---
1743 - Pt transported via wheelchair to floor by ED RN
--- NOTE | 2025-06-30 17:46 | PC.NURSE ---
ARRIVED BY W/C FROM ED
[2025-06-30 20:08] LABS: Hematocrit 21.8 % (42.0-52.0)
[2025-06-30 20:18] LABS: Hemoglobin 6.9 g/dL (14.1-18.0)
--- NOTE | 2025-06-30 20:19 | PC.NURSE ---
notified Sarah Escalante APRN of critical hgb 6.9
[2025-06-30] MEDS: PANTOPRAZOLE 40MG TABLET 40 MG PO (20:21)
--- NOTE | 2025-06-30 21:59 | PC.NURSE ---
spoke with lab regarding new order for unit of blood. They stated they have the order.
[2025-07-01 00:40] VITALS: BP 128/71; PULSE 97; RESP 18; TEMP 36.6; O2SAT 97
[2025-07-01 00:57] LABS: Hematocrit 24.0 % (42.0-52.0)
[2025-07-01 01:00] LABS: Hemoglobin 7.6 g/dL (14.1-18.0)
[2025-07-01 04:00] VITALS: BP 119/71; PULSE 89; RESP 16; TEMP 36.5; O2SAT 99; BMI 23.6
--- NOTE | 2025-07-01 05:21 | PC.NURSE ---
Addendum entered by Rylie Bryant RN 07/01/25 05:23: NPO since 0000 Original Note: no acute changes this shift. no bloody stools. Pt received a second unit PRBC's. Pt has no complaints. VSS. call light in reach.
[2025-07-01 06:43] LABS: Hematocrit 24.8 % (42.0-52.0); Hemoglobin 7.8 g/dL (14.1-18.0); Immature Granulocytes % 2.5 %; Mean Corpuscular HGB Conc 31.5 g/dL (31.8-35.4); Mean Corpuscular Hemoglobin 25.7 pg (27.0-31.2); Mean Corpuscular Volume 81.6 fl (80-94); Nucleated Red Blood Cells % 0.2 %; Platelet Count 463 K/mm3 (142-424); Red Blood Count 3.04 M/mm3 (4.60-6.20); Red Cell Distribution Width-SD 42.1 fL; White Blood Count 8.9 K/mm3 (4.8-10.8)
[2025-07-01 07:02] LABS: Albumin Level 3.4 g/dl (3.5-5.0); Chloride 107 mmol/L (98-107); Potassium 4.4 mmoL/L (3.5-5.1); Sodium 138 mmol/L (136-145)
[2025-07-01 07:05] LABS: Alanine Aminotransferase 19 U/L (12-78); Albumin/Globulin Ratio 1.0 (1.1-1.8); Alkaline Phosphatase 68 U/L (38-126); Anion Gap 10.4 mEq/L (5-15); Aspartate Amino Transferase 27 U/L (17-59); Bilirubin,Total 0.3 mg/dl (0.2-1.3); Blood Urea Nitrogen 7 mg/dl (9-20); Carbon Dioxide 25 mmol/L (22.0-30.0); Creatinine Clearance Estimated 144 mL/min (50-200); Creatinine,Serum 0.80 mg/dl (0.66-1.25); Estimated Glomerular Filt Rate 105 ml/min (>60); GFR (African American) 127 ML/MIN (>60); Globulin 3.4 g/dL (1.3-3.2); Total Protein,Serum 6.8 g/dl (6.3-8.2)
[2025-07-01 07:06] LABS: Calcium 8.2 mg/dl (8.4-10.2); Glucose 135 mg/dl (74-100); Magnesium 2.4 mg/dl (1.6-2.3)
[2025-07-01 08:00] VITALS: BP 121/68; PULSE 82; RESP 16; TEMP 36.5; O2SAT 97
--- NOTE | 2025-07-01 08:04 | HMH.PHAINT1 ---
Pharmacy Intervention Comments: MEDICATION RECONCILIATION COMPLETED ON PATIENT USING EXTERNAL FILL HISTORY FROM PHARMACY. -MARLO METZGER, ALEKSANDRD
[2025-07-01] MEDS: IRON SUCROSE COMPLEX 200 MG in 0.9 % SODIUM CHLORIDE 100 ML 220 MG IV (08:42)
[2025-07-01] MEDS: ESCITALOPRAM 10MG TABLET 10 MG PO (08:42)
[2025-07-01] MEDS: HYDROCORTISONE 2.5% CREAM 28GM TUBE TP (08:44)
--- NOTE | 2025-07-01 09:30 | EXP.PN ---
Subjective *Date: 07/01/25 *Time: 09:30 Interval history: Mr. Bishop is a 45-year-old gentleman with an elevated fecal calprotectin of 1450 and a positive p-ANCA of 1: 160. He also had an elevated ASCA IgA antibody. He did have a colonoscopy with mn on May 21, 2025 and had moderate left-sided ulcerative colitis. His insurance did not provide coverage for Zeposia or Velsipity but would cover Tremfya. He did get the first induction dose but took a double dose of induction and felt like he had a reaction. He also felt that this was possibly related to stress, anxiety and the activity of his colitis. Since getting the Tremfya, he has noted less frequency and less blood and moderate improvement of symptoms. The patient had gone to the ED after the Tremfya at the [facility] and had a CAT scan that showed moderately active colitis. He presented to the ED yesterday with weakness, fatigue and malaise. He has had ongoing rectal bleeding which he now feels might be hemorrhoidal. Yesterday, his hemoglobin hematocrit were 6.2 and 19.7. He did receive a blood transfusion. Iron studies from February 2025 showed ferritin of 8.42. He has not been on iron supplementation. He does get some dyspnea on exertion. Exam Data for Last 24 hours Vital signs and Labs for Last 24 Hours: Temp Pulse Resp BP Pulse Ox O2 Del Method 97.7 F 82 16 121/68 97 Room Air 07/01/25 08:00 07/01/25 08:00 07/01/25 08:00 07/01/25 08:00 07/01/25 08:00 07/01/25 08:00 Laboratory Results - last 24 hr 06/30/25 15:18: WBC 7.5, RBC 2.43 L, Hgb 6.2 L*, Hct 19.7 L*, MCV 81.1, MCH 25.5 L, MCHC 31.5 L, RDW 14.4, Plt Count 473 H, MPV 8.8, Neut % (Auto) 67.6, Lymph % (Auto) 21.8, [place] % (Auto) 4.8, Eos % (Auto) 4.8, Baso % (Auto) 0.3, Neut # (Auto) 5.1, Lymph # (Auto) 1.6, [place] # (Auto) 0.4, Eos # (Auto) 0.4, Baso # (Auto) 0.0, PT 10.9, INR 0.98, APTT 23.9, Sodium 138, Potassium 3.6, Chloride 102, Carbon Dioxide 28, Anion Gap 11.6, BUN 9, Creatinine 1.00, Estimated Creat Clear 115, Estimated GFR 81, Est GFR ( Amer) 98, Glucose 73 L, Calcium 8.4, Magnesium 2.1, Total Bilirubin 0.4, AST 29, ALT 18, Alkaline Phosphatase 68, Total Protein 7.3, Albumin 3.7, Globulin 3.6 H, Albumin/Globulin Ratio 1.0 L, Lipase 117, Blood Type O Positive, Antibody Screen Negative, Crossmatch (AHG) See Detail 06/30/25 16:22: Blood Type Confirm O Positive 06/30/25 20:02: Hgb 6.9 L, Hct 21.8 L, Lactate 0.9 07/01/25 00:51: Hgb 7.6 L D, Hct 24.0 L 07/01/25 05:45: WBC 8.9, RBC 3.04 L D, Hgb 7.8 L, Hct 24.8 L, MCV 81.6, MCH 25.7 L, MCHC 31.5 L, RDW 14.2, Plt Count 463 H, MPV 9.1, Neut % (Auto) 83.8 H, Lymph % (Auto) 12.1, [place] % (Auto) 1.3 L, Eos % (Auto) 0.1, Baso % (Auto) 0.2, Neut # (Auto) 7.4, Lymph # (Auto) 1.1, [place] # (Auto) 0.1, Eos # (Auto) 0.0, Baso # (Auto) 0.0, Sodium 138, Potassium 4.4 D, Chloride 107, Carbon Dioxide 25, Anion Gap 10.4, BUN 7 L, Creatinine 0.80, Estimated Creat Clear 144, Estimated GFR 105, Est GFR ( Amer) 127 D, Glucose 135 H D, Calcium 8.2 L, Magnesium 2.4 H D, Total Bilirubin 0.3, AST 27, ALT 19, Alkaline Phosphatase 68, Total Protein 6.8, Albumin 3.4 L, Globulin 3.4 H, Albumin/Globulin Ratio 1.0 L I & O for Last 24 hours: Intake & Output 06/28/25 06/29/25 06/30/25 07/01/25 23:59 23:59 23:59 23:59 Intake Total 83 / 83 Output Total 0 / 0 0 / 0 Balance / 0 / 0 Weight 190 lb 190 lb 0.016 oz Constitutional Constitutional: no acute distress *Routine HEENT Exam Head: Present normocephalic Eye: Present EOMI and PERRL ENT: Present mucous membranes moist *Routine Neck Exam Neck: Present supple; Absent lymphadenopathy *Routine Respiratory Exam Respiratory: Present CTA bilaterally *Routine Cardiovascular Exam Cardiovascular: Present RRR *Routine Abdominal Exam Abdominal: Present soft and normoactive bowel sounds; Absent tenderness *Routine Extremities Exam Extremities: Absent cyanosis, clubbing or edema *Routine Skin Exam Skin: Present warm; Absent rash *Routine Neurological Exam Neurological: Present alert and oriented X3 Assessment and Plan *Assessment and plan (1) Left sided ulcerative colitis: Status: Acute Category: Medical Code(s): K51.50 - Left sided colitis without complications (2) Iron deficiency anemia: Status: Acute Category: Medical Code(s): D50.9 - Iron deficiency anemia, unspecified Plan 1. Marked iron deficiency anemia. This is his primary issue that brought him to the emergency department with symptomatic anemia, malaise and weakness. I would certainly include Venofer iron infusion while he is here and make sure that he goes home on oral iron supplementation and to receive additional Venofer infusion. This is certainly related to the chronic UC but he has been improving with his induction with Tremfya. Certainly the lifespan of the red blood cell with iron infusion is much greater than with blood transfusion. With iron infusion, there is a tremendous reduction of cost and resources with fewer complications including development of antibodies which can sometimes occur with blood transfusion. 2. Left-sided ulcerative colitis. This is certainly resulted in the iron deficiency and bleeding. He has received initial induction doses with Tremfya and will receive next induction on 07/12. Overall, he is already seeing some clinical improvement. I did recommend that we use Canasa or Anusol HC for his proctitis but I do feel that some of this bleeding might be even hemorrhoidal bleeding. The patient may go home today with close outpatient follow-up. I would send home after Venofer infusion and arranging outpatient Venofer infusions and on oral iron.
[2025-07-01 09:34] LABS: Microscopic, Urine URINE MICROSCOPIC (MICROSCOPIC)
[2025-07-01 09:42] LABS: Bilirubin,Urine Negative (Negative); Color,Urine YELLOW (Yellow); Glucose,Urine (UA) Negative (Negative); Ketones,Urine Negative (Negative); Leukocyte Esterase,Urine Negative (Negative); PH,Urine 6.0 (5.0-8.5); Protein,Urine Negative (Negative); Specific Gravity, Urine 1.020 (1.005-1.030); Urobilinogen,Urine 0.2 EU/dl (0.2)
[2025-07-01 10:00] LABS: Bacteria,Urine Trace /lpf; WBC,Urine Occasional #/hpf (0-3)
--- NOTE | 2025-07-01 11:00 | EXP.DC.SUM ---
General Admission date:: 06/30/25 Discharge date: 07/01/25 HPI HPI HPI: 45-year-old male with recent diagnosis of ulcerative colitis in May. Presents with worsening weakness over the past few weeks. States he gets short of breath with exertion and is unable to walk very far without dyspnea and fatigue. Occasionally getting dizzy. Concern he might be having a UC flare. Having bloody bowel movements for the past 2 to 3 months. They are decreasing in frequency but still happening most days. Thinks there is a component of his hemorrhoids. States that they stopped pretty easily after a bowel movement. Denies fever, cough, shortness of breath, nausea or vomiting. Still having some mild abdominal pain but getting better. Follows with Dr. Loredo. Workup in the ER with hemoglobin of 6.2, hematocrit 19.7. Typed and screened for blood transfusion. Medicine consulted for admission and further management. Alert and oriented x 4 and on room air on evaluation after arriving to the floor. Hospital Course Hospital Course Hospital Course: 45-year-old male with recent diagnosis of ulcerative colitis. Currently on Tremfya. Presents with weakness. Found to be profoundly anemic. Discussed case with ER physician, request admission for transfusion and GI consult. I decided to admit for further care. Received transfusion during admission. Hemoglobin remained stable. GI was consulted to evaluate. Initiated on steroids. Stable discharge home for further management as an outpatient of his ulcerative colitis. Problems addressed as follows: Ulcerative colitis, left-sided, present on admission Acute on chronic anemia, secondary to blood loss - Patient had scope performed on 05/21. Found to have moderate left-sided ulcerative colitis. Initiated on immunotherapy with Tremfya. States his mesalamine was discontinued at that time. Last hemoglobin 14.7 in February. Hemoglobin now 6.2. Hematocrit 19.7. Having blood loss per rectum. Diagnosed recently with ulcerative colitis. Patient also has hemorrhoids. Admitted for transfusion. Receiving 1 unit packed red blood cells. Additionally received 200 mg IV Venofer during admission. GI was consulted to evaluate and possibly scope to evaluate source of bleeding. Given his improvement in hemoglobin and stability at this time, no plan for inpatient colonoscopy. Initiated on oral prednisone. Will continue 40 mg daily. Overall patient states he has been feeling better since starting Tremfya. Will also initiate hydrocortisone rectally for hemorrhoids and UC treatment focally. Hemoglobin 7.8 on day of discharge. Platelets 463. Overall doing well. Stable discharge home with close follow-up with GI as an outpatient. - Per review with GI, his left-sided ulcerative colitis is certainly the source of his iron deficiency anemia and bleeding. Overall having some clinical improvement. Recommend close follow-up in the next few weeks. Will need further IV iron as an outpatient. GI to arrange this. History of GERD: Continue PPI nightly. Anxiety: Continue Lexapro 10 mg daily Total time spent on discharge 32 minutes in counseling, documentation, chart review, and direct care with patient. Exam Data for Last 24 hours Vital signs and Labs for Last 24 Hours: Temp Pulse Resp BP Pulse Ox O2 Del Method 97.7 F 82 16 121/68 97 Room Air 07/01/25 08:00 07/01/25 08:00 07/01/25 08:00 07/01/25 08:00 07/01/25 08:00 07/01/25 08:00 Laboratory Results - last 24 hr 06/30/25 15:18: WBC 7.5, RBC 2.43 L, Hgb 6.2 L*, Hct 19.7 L*, MCV 81.1, MCH 25.5 L, MCHC 31.5 L, RDW 14.4, Plt Count 473 H, MPV 8.8, Neut % (Auto) 67.6, Lymph % (Auto) 21.8, [place] % (Auto) 4.8, Eos % (Auto) 4.8, Baso % (Auto) 0.3, Neut # (Auto) 5.1, Lymph # (Auto) 1.6, [place] # (Auto) 0.4, Eos # (Auto) 0.4, Baso # (Auto) 0.0, PT 10.9, INR 0.98, APTT 23.9, Sodium 138, Potassium 3.6, Chloride 102, Carbon Dioxide 28, Anion Gap 11.6, BUN 9, Creatinine 1.00, Estimated Creat Clear 115, Estimated GFR 81, Est GFR ( Amer) 98, Glucose 73 L, Calcium 8.4, Magnesium 2.1, Total Bilirubin 0.4, AST 29, ALT 18, Alkaline Phosphatase 68, Total Protein 7.3, Albumin 3.7, Globulin 3.6 H, Albumin/Globulin Ratio 1.0 L, Lipase 117, Blood Type O Positive, Antibody Screen Negative, Crossmatch ([facility]) See Detail 06/30/25 16:22: Blood Type Confirm O Positive 06/30/25 20:02: Hgb 6.9 L, Hct 21.8 L, Lactate 0.9 07/01/25 00:51: Hgb 7.6 L D, Hct 24.0 L 07/01/25 05:45: WBC 8.9, RBC 3.04 L D, Hgb 7.8 L, Hct 24.8 L, MCV 81.6, MCH 25.7 L, MCHC 31.5 L, RDW 14.2, Plt Count 463 H, MPV 9.1, Neut % (Auto) 83.8 H, Lymph % (Auto) 12.1, [place] % (Auto) 1.3 L, Eos % (Auto) 0.1, Baso % (Auto) 0.2, Neut # (Auto) 7.4, Lymph # (Auto) 1.1, [place] # (Auto) 0.1, Eos # (Auto) 0.0, Baso # (Auto) 0.0, Sodium 138, Potassium 4.4 D, Chloride 107, Carbon Dioxide 25, Anion Gap 10.4, BUN 7 L, Creatinine 0.80, Estimated Creat Clear 144, Estimated GFR 105, Est GFR ( Amer) 127 D, Glucose 135 H D, Calcium 8.2 L, Magnesium 2.4 H D, Total Bilirubin 0.3, AST 27, ALT 19, Alkaline Phosphatase 68, Total Protein 6.8, Albumin 3.4 L, Globulin 3.4 H, Albumin/Globulin Ratio 1.0 L 07/01/25 09:27: Urine Color Yellow, Urine Appearance Clear, Urine pH 6.0, Ur Specific [place] 1.020, Urine Protein Negative, Urine Glucose (UA) Negative, Urine Ketones Negative, Urine Blood Negative, Urine Nitrate Negative, Urine Bilirubin Negative, Urine Urobilinogen 0.2, Ur Leukocyte Esterase Negative, Urine RBC None, Urine WBC Occasional, Ur Squamous Epith Cells None, Urine Bacteria Trace I & O for Last 24 hours: Intake & Output 06/28/25 06/29/25 06/30/25 07/01/25 23:59 23:59 23:59 23:59 Intake Total 83 / 240 / 240 Output Total 0 / 0 0 / 0 Balance 833 / 83 240 / 240 Weight 86.183 kg 86.183 kg Constitutional Constitutional: no acute distress, thin and cooperative *Routine HEENT Exam Head: Present normocephalic Eye: Present EOMI and PERRL ENT: Present mucous membranes moist *Routine Neck Exam Neck: Present supple; Absent lymphadenopathy *Routine Respiratory Exam Respiratory: Present CTA bilaterally *Routine Cardiovascular Exam Cardiovascular: Present RRR *Routine Abdominal Exam Abdominal: Present soft, normoactive bowel sounds and tenderness (mild, non-focal) *Routine Rectal Exam Patient deferred: visual exam *Routine Exam Patient deferred: penile exam *Routine Extremities Exam Extremities: Absent cyanosis, clubbing or edema *Routine Skin Exam Skin: Present intact and warm; Absent rash *Routine Neurological Exam Neurological: Present alert, oriented X3 and moving all extremities; Absent altered mental status Results Data Completed and Pending Labs on day of discharge: Labs from last 24 hours 07/01/25 07/01/25 07/01/25 09:27 05:45 00:51 WBC 8.9 RBC 3.04 L D Hgb 7.8 L 7.6 L D Hct 24.8 L 24.0 L MCV 81.6 MCH 25.7 L MCHC 31.5 L RDW 14.2 Plt Count 463 H MPV 9.1 Neut % (Auto) 83.8 H Lymph % (Auto) 12.1 [place] % (Auto) 1.3 L Eos % (Auto) 0.1 Baso % (Auto) 0.2 Neut # (Auto) 7.4 Lymph # (Auto) 1.1 [place] # (Auto) 0.1 Eos # (Auto) 0.0 Baso # (Auto) 0.0 PT INR APTT Sodium 138 Potassium 4.4 D Chloride 107 Carbon Dioxide 25 Anion Gap 10.4 BUN 7 L Creatinine 0.80 Estimated Creat Clear 144 Estimated GFR 105 Est GFR ( Amer) 127 D Glucose 135 H D Lactate Calcium 8.2 L Magnesium 2.4 H D Total Bilirubin 0.3 AST 27 ALT 19 Alkaline Phosphatase 68 Total Protein 6.8 Albumin 3.4 L Globulin 3.4 H Albumin/Globulin Ratio 1.0 L Lipase Urine Color Yellow Urine Appearance Clear Urine pH 6.0 Ur Specific [place] 1.020 Urine Protein Negative Urine Glucose (UA) Negative Urine Ketones Negative Urine Blood Negative Urine Nitrate Negative Urine Bilirubin Negative Urine Urobilinogen 0.2 Ur Leukocyte Esterase Negative Urine RBC None Urine WBC Occasional Ur Squamous Epith Cells None Urine Bacteria Trace Blood Type Blood Type Confirm Antibody Screen Crossmatch ([facility]) 06/30/25 06/30/25 06/30/25 20:02 16:22 15:18 WBC 7.5 RBC 2.43 L Hgb 6.9 L 6.2 L* Hct 21.8 L 19.7 L* MCV 81.1 MCH 25.5 L MCHC 31.5 L RDW 14.4 Plt Count 473 H MPV 8.8 Neut % (Auto) 67.6 Lymph % (Auto) 21.8 [place] % (Auto) 4.8 Eos % (Auto) 4.8 Baso % (Auto) 0.3 Neut # (Auto) 5.1 Lymph # (Auto) 1.6 [place] # (Auto) 0.4 Eos # (Auto) 0.4 Baso # (Auto) 0.0 PT 10.9 INR 0.98 APTT 23.9 Sodium 138 Potassium 3.6 Chloride 102 Carbon Dioxide 28 Anion Gap 11.6 BUN 9 Creatinine 1.00 Estimated Creat Clear 115 Estimated GFR 81 Est GFR ( Amer) 98 Glucose 73 L Lactate 0.9 Calcium 8.4 Magnesium 2.1 Total Bilirubin 0.4 AST 29 ALT 18 Alkaline Phosphatase 68 Total Protein 7.3 Albumin 3.7 Globulin 3.6 H Albumin/Globulin Ratio 1.0 L Lipase 117 Urine Color Urine Appearance Urine pH Ur Specific [place] Urine Protein Urine Glucose (UA) Urine Ketones Urine Blood Urine Nitrate Urine Bilirubin Urine Urobilinogen Ur Leukocyte Esterase Urine RBC Urine WBC Ur Squamous Epith Cells Urine Bacteria Blood Type O Positive Blood Type Confirm O Positive Antibody Screen Negative Crossmatch ([facility]) See Detail DS: Diagnosis Discharge Diagnosis (1) Left sided ulcerative colitis: Status: Acute Code(s): K51.50 - Left sided colitis without complications Qualifiers: Digestive disease complication type: with rectal bleeding Qualified Code(s): K51.511 - Left sided colitis with rectal bleeding Problem details: present on admission (2) Iron deficiency anemia: Status: Acute Code(s): D50.9 - Iron deficiency anemia, unspecified Meds Home Medications and Allergies Home Medications ?Medication ?Instructions ?Recorded ?Confirmed ?Type loratadine 10 mg tablet (Claritin) 10 mg PO DAILY 12/29/23 06/30/25 History omeprazole 40 mg capsule,delayed 40 mg PO DAILY #90 caps 10/07/24 06/30/25 Rx release rosuvastatin 20 mg tablet 20 mg PO DAILY 10/07/24 06/30/25 History guselkumab 200 mg/2 mL 200 mg SQ MONTHLY 06/30/25 06/30/25 History subcutaneous syringe (Tremfya) rizatriptan 10 mg tablet 10 mg PO Q2HP PRN Migraine Headache 06/30/25 07/01/25 History escitalopram oxalate 20 mg tablet 20 mg PO DAILY 07/01/25 07/01/25 History ferrous gluconate 324 mg (37.5 mg 324 mg PO DAILY #30 tabs 07/01/25 Rx iron) tablet hydrocortisone 2.5 % topical cream 1 applic IN DAILY hemorrhoids 14 07/01/25 Rx with perineal applicator days #30 grams (Procto-Med HC) hydrocortisone acetate 25 mg 25 mg IN DAILY 14 days #24 ea 07/01/25 Rx rectal suppository (Anusol-HC) prednisone 10 mg tablet See Rx Instructions .Route 07/01/25 Rx .COMPLEX #13 tabs New Prescriptions to Start Prescriptions: ferrous gluconate Vinod Bowen hydrocortisone [Procto-Med HC] Vinod Bowen hydrocortisone acetate [Anusol-HC] Vinod Bowen prednisone Vinod Bowen Allergies Allergy/AdvReac Type Severity Reaction Status Date / Time No Known Allergies Allergy Verified 05/21/25 10:14 Discharge Plan Disposition Patient Disposition: Home, Self-Care Condition: Fair Follow up Plan Follow up with: Elio Loredo II, MD [Staff Physician, Gastroenterology] - 08/11/25 9:30 am Ximena Swenson APRN [Primary Care Provider, Medical] - 07/11/25 10:00 am Prescriptions/Medication Reconciliation: New hydrocortisone acetate [Anusol-HC] 25 mg suppository 25 mg IN DAILY 14 Days Qty: 24 0RF ferrous gluconate 324 mg (37.5 mg iron) tablet 324 mg PO DAILY Qty: 30 0RF prednisone 10 mg tablet See Rx Instructions .ROUTE .COMPLEX Qty: 13 0RF Rx Instructions: 30 mg for 2 days, 20 mg for 2 days, 10 mg for 2 days, 5 mg for 2 days hydrocortisone [Procto-Med HC] 2.5 % cream with perineal applicator 1 applic IN DAILY 14 Days Qty: 30 0RF Continued loratadine [Claritin] 10 mg tablet 10 mg PO DAILY Patient Comments: TAKE 1 TABLET BY MOUTH ONCE DAILY rosuvastatin 20 mg tablet 20 mg PO DAILY Patient Comments: TAKE 1 TABLET BY MOUTH ONCE DAILY omeprazole 40 mg capsule,delayed release(DR/EC) 40 mg PO DAILY Qty: 90 3RF Tremfya 200 mg/2 mL Syringe 200 mg SQ MONTHLY rizatriptan 10 mg Tablet 10 mg PO Q2HP PRN (Reason: Migraine Headache) Rx Instructions: do not exceed 3 doses per 24 hrs escitalopram oxalate 20 mg tablet 20 mg PO DAILY Patient Comments: TAKE 1 TABLET BY MOUTH ONCE DAILY Problem Reconciliation Problems Reviewed?: Yes Patient Discharge Instructions ACTIVITY: Continue current activity DIET: continue same diet Patient Instructions: Anemia, Gastrointestinal Bleeding Print Language: [place] Providers Primary Care Provider: Ximena Swenson Admit Provider: Vinod Bowen Attending Provider: Vinod Bowen
[2025-07-01 11:44] VITALS: BP 127/71; PULSE 80; RESP 16; TEMP 36.6; O2SAT 100
[2025-07-01 11:57] VITALS: BMI 23.6
--- NOTE | 2025-07-03 10:58 | SW/DCPLANNER ---
Phoned patient x2. Left message with name and a call back number each time. Hao Kurtz
== END 2025-07-01 12:53 | disposition home or self-care (01) ==
LOC: ER 16:43 → 2ND 17:24
PROVIDERS: Nurse Practitioner Acute Care; Nurse Practitioner Family; Admitting Provider Internal Medicine Adolescent Medicine; Emergency Provider Student in an Organized Health Care Education/Training Program; PCP Nurse Practitioner Family; Visit Provider Internal Medicine Adolescent Medicine
DX: K51.311 Ulcerative (chronic) rectosigmoiditis with rectal bleeding (principal); F41.9 Anxiety disorder, unspecified; K21.9 Gastro-esophageal reflux disease without esophagitis; D50.0 Iron deficiency anemia secondary to blood loss (chronic); K92.1 Melena; K64.9 Unspecified hemorrhoids; G43.909 Migraine, unspecified, not intractable, without status migrainosus; R00.0 Tachycardia, unspecified; Z79.899 Other long term (current) drug therapy
CPT/HCPCS: 36415; 36430; 80053; 81001; 83605; 83690; 83735; 85014; 85018; 85025; 85610; 85730; 86850; 93005; 96361; 96374; 99285; G0378; J1756; J7030; J7050; P9016

== ENCOUNTER 2025-08-11 10:27 | Outpatient (CLI) | payer BC, SELFPAY ==
--- OUTSIDE RECORDS SUMMARY | 2025-06-20 14:57 | XMS_ITS | Encounter Summary ---
Author Organization Healthcare Address [address] [place] [address] Care Team Providers Care Button Breaker Name Role Phone SwensonXimena springer ALFONZO Primary Care Provider [phone] Reason for Visit * Reason Comments Abdominal Pain Encounter Details Date Type Department Care Team (Late st Contact Info) Description 06/20/2025 3:57 PM EDT - 06/20/2025 8:05 PM EDT [facility] [address] [place] [address] Chris Chiu MD [address] [place] [address] Generalized abdominal pain (Primary Dx); Other ulcerative colitis with rectal bleeding (CMS/HCC) Discharge Disposition: Home or Self Care Social History Tobacco Use Types Packs/Day Years Used Date Smoking Tobacco: Every Day Cigarettes Smokeless Tobacco: Never Comments:Trying to quit, april n to about 10 cigs a day. Smoked [...] on file documented as of this encounter Last Filed Vital Signs Vital Sign Reading Time Taken Comments Blood Pressure 127/78 06/20/2025 7:10 PM EDT Pulse 94 06/20/2025 7:10 PM EDT Temperature 36.7 C (98 F) 06/20/2025 7:10 PM EDT Respiratory Rate 16 06/20/2025 7:10 PM EDT Oxygen Saturation 98% 06/20/2025 7:10 PM EDT Inhaled Oxygen Concentration - - Weight 90.7 kg (200 lb) 06/20/2025 3:07 PM EDT Height - - Body Mass Index 25 07/19/2023 10:41 AM EDT documented in this encounter Functional Status * Calculated C-SSRS Risk Score (Lifetime/Recent) Answer Date of Assessment Author No Risk Indicated 06/20/2025 4:30 PM EDT Jose M Alejandro RN * Question Answer Date of Assessment Author 1. Wish to be (Past 1 Month) No 06/20/2025 4:30 PM EDT Kong Alejandro RN 2. Non-Specific Active Suicidal Thoughts (Past 1 Month) No 06/20/2025 4:30 PM EDT Kong Alejandro RN 6. Suicidal Behavior (Lifetime) No 06/20/2025 4:30 PM EDT Kong Alejandro RN documented as of this encounter Discharge Instructions * Discharge Instructions* Nikki Nobles MD - 06/20/2025 7:56 PM EDT You were seen and evaluated in the emergency department today for generalized weakness, abdominal pain, bloody stool. After reviewing your scans we have determined that your symptoms are consistent with ulcerative colitis and after speaking with the GI doctor on-call we have determined that these are common side effects of your new medication. Please take her Bentyl as needed over the weekend andfollow up with your GI doctor on Monday. Please return to ED if your symptoms worsen, change in location, change in severity, new symptoms develop or if you become concerned for your health. documented in this encounter Medications at Time of Discharge buPROPion (Wellbutrin) 75 MG tablet Take 50 mg by mouth 2 (two) times a day. loratadine (Claritin) 10 MG tablet Take 1 tablet (10 mg) by mouth 1 (one) time each day. rosuvastatin (Crestor) 20 MG tablet Take 1 tablet (20 mg) by mouth every night. dicyclomine (Bentyl) 20 MG tablet Take 1 tablet by mouth 4 times a day as needed (abdominal cramping). 20 tablet 06/20/2025 07/20/2025 documented as of this encounter Miscellaneous Notes * ED Provider Notes - Nikki Nobles MD - 06/20/2025 3:00 PM EDT Images from the original note were not included. - HPI Chief Complaint Patient presents with Abdominal Pain PIT NOTE Ranjeet Bishop is a 45 y.o. male who presents to the ED with ABD pain. Pt arrives to the ED c/o Abdominal pain, diarrhea, and rectal bleeding secondary to worsening colitis. Pt reports colitisis autoimmune, with most recent colonoscopy at beginning of May. Pt reports h/o smoking , butstates he has stopped. MAIN ED NOTE//Nikki Nobles MD: I assumed full responsibility for this patient after transfer to Main ED from [facility]. I personally performed my own history, ROS, and physical. I agree with the above [facility] documentation with the following additions/exceptions: Patient states that he has had worsening diarrhea over the last 2 weeks. Endorses having blood in his diarrhea but also endorses having a history of hemorrhoids, states that the blood is always bright red and he feels that his hemorrhoids are irritated given that he is having approximately 12 bowel movements a day. States that it is always diarrhea. States that he has had some flu-like symptoms for the past week. Recently started Tremfya, had his last dose which was his initial dose last Monday. Was scheduled to have another dose tomorrow. Patient History Past Medical History[1] Surgical History[2] Family History[3] Social History[4] Allergies: Allergies[5] Physical Exam ED Triage Vitals [06/20/25 1507] Temp Heart Rate Resp BP 36.8 ??C (98.2 ??F) 80 18 118/78 SpO2 Temp src Heart Rate Source Patient Position 94 % -- -- -- BP Location FiO2 (%) -- -- Physical Exam Vitals and nursing note reviewed. Constitutional: General: He is not in acute distress. Appearance: Normal appearance. HENT: Head: Normocephalic and atraumatic. Nose: No rhinorrhea. Mouth/Throat: Mouth: Mucous membranes are moist. Pharynx: Oropharynx is clear. Eyes: General: Right eye: No discharge. Left eye: No discharge. Conjunctiva/sclera: Conjunctivae normal. Pupils: Pupils are equal, round, and reactive to light. Pulmonary: Effort: Pulmonary effort is normal. No respiratory distress. Breath sounds: No stridor. Musculoskeletal: General: Normal range of motion. Cervical back: No rigidity. Skin: General: Skin is warm and dry. Neurological: Mental Status: He is alert and oriented to person, place, and time. Psychiatric: Mood and Affect: Mood normal. Behavior: Behavior normal. [place] Coma Scale Score: 15 ED Course & MDM - Assessment: 45 y.o. male presents to ED with complaint of flu prodrome of symptoms and weakness. It should be noted that the chronic conditions includes ulcerative colitis, which currently is not at goal therapy. This complicates the clinical picture because it Comorbidities: may be exacerbating symptoms Differential Diagnosis: Ulcerative colitis flare, medication side effect, infection In order to fully explore the differential diagnosis the following treatments and tests were ordered: ED Medication Administration from 06/20/2025 1500 to 06/20/2025 2234 Date/Time Order Dose Route Action 06/20/2025 1550 EDT dicyclomine (Bentyl) injection 20 mg -- Intramuscular Canceled Entry 06/20/2025 1636 EDT lactated Ringer's infusion 1,000 mL 1,000 mL Intravenous New Bag 06/20/2025 1729 EDT iohexol (OMNIPaque) 300 MG/ML injection 100 mL 100 mL Intravenous Given 06/20/2025 1745 EDT lactated Ringer's infusion 1,000 mL 0 mL Intravenous Stopped 06/20/2025 1821 EDT dicyclomine (Bentyl) tablet 20 mg 20 mg Oral Given All Other Orders Ordered Status Ordering Provider 06/20/25 1738 Continuous Comments: Added via Instant Order OPA Canceled BPA, INSTANT ORDERS 06/20/25 1738 Continuous Comments: Added via Instant Order OPA Canceled BPA, INSTANT ORDERS 06/20/25 1738 Continuous Comments: Added via Instant Order OPA Canceled BPA, INSTANT ORDERS 06/20/25 173 Continuous Comments: Added via Instant Order OPA Canceled BPA, INSTANT ORDERS 06/20/25 1731 SARS-CoV-2, Flu A, Flu B, and RSV - Rapid STAT Final result NIKKI NOBLES 06/20/25 1546 Hepatitis C Antibody - ED Once Final result CHRIS CHIU 06/20/25 1546 ED Protocol - HIV 1/2 Antibody/Antigen Screen Once Final result CHRIS CHIU 06/20/25 1546 ED HIV 1/2 Antibody/Antigen Screen w/Reflex to HIV 1/2 Differentiation PROCEDURE ONCE Final result CHRIS CHIU 06/20/25 1546 Comprehensive GI Panel by PCR STAT Final result CHRIS CHIU 06/20/[address] Abdomen Pelvis w IV Contrast Once Final result CHRIS CHIU 06/20/25 1546 Once Canceled CHRIS CHIU 06/20/25 1546 CMP STAT Final result CHRIS CHIU 06/20/25 1546 Lipase STAT Final result CHRIS CHIU 06/20/25 1546 CBC w/diff STAT Final result CHRIS CHIU 06/20/25 1546 Lactic acid, venous STAT Final result CHRIS CHIU 06/20/25 1546 Fecal Lactoferrin STAT Preliminary result CHRIS CHIU 06/20/25 1546 Calprotectin, Stool Once In process CHRIS CHIU ED Course as of 06/20/25 2234 MonJun 20, 2025 1731 CBC w/diff(!) White count non elevated [SW] 1731 CMP(!) CMP non actionable [SW] 1731 Lipase Lipase within normal limits [SW] 1731 Lactic acid, venous Lactic acid not elevated, unlikely bowel ischemia [SW] 190 Fecal Lactoferrin(!) Consistent with ulcerative colitis [SW] 1904 CT Abdomen Pelvis w IV Contrast IMPRESSION: Findings consistent with colitis, which can be infectious or inflammatory. No evidence of perforation. [SW] 1930 Called and had interactive discussion with GI fellow on-call. Discussed the patient taking hisnew medication Tremfya and its associated side effects. The discussed the case with her attending and got back to me and stated that these are all known documented side effects of the drug. Given hisnegative infectious workup these symptoms can most likely be attributed to him starting this new med ication. Patient will follow up with his own GI doctor on Monday. 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 Lactic acidwas negative making bowel ischemia unlikely as well. Patient's CT abdomen and pelvis did not show any bowel obstruction. Interactive discussion was had with the GI fellow and she discussed the case with her attending, they both agreed that these could be symptoms related to patient's new medication. Given that his infectious workup was negative this is most likely the cause of his symptoms. Interactive discussion was had with the patient at bedside regarding the findings as well as my discussion with GI, patient is agreeable to go home at this time, we will follow up with his GI doctor early next week. Patient will be sent home with a short course of Bentyl through the weekend. Patient is hemodynamically stable and will be discharged at this time. Social Determinates of Health Risks (including Economic Stability, Education and level of understanding, Healthcare access and quality and concerning social factors): Poor health literacy Ultimately, this patient was Was discharged Home (Discharge) The primary encounter diagnosis was Generalized abdominal pain. A diagnosis of Other ulcerative colitis with rectal bleeding (CMS/HCC) was also pertinent to this visit. . Patient was counseled on the diagnoses. Discharge medications if any are listed below. Listed medications are thought be either curative for listed diagnoses or will help control ongoing symptoms. Patient is requested to follow up with GI in order to obtain specialty care. Instructions on follow up as well as precautions to return to the ER provided verbally by the EM provider, as well as written in patients discharge education packet. Date/Time: 06/20/2025/10:34 PM Entered by Abraham Ricci acting as scribe for Dr. Greg Mann. Attending Attestation: The documentation was recorded by Abraham Ricci, acting as scribe in my presence at the time of the encounter and accurately reflects the service I personally performed. ED Prescriptions Medication Sig Dispense Start Date End Date Auth. Provider dicyclomine (Bentyl) 20 MG tablet Take 1 tablet by mouth 4 times a day as needed (abdominal cramping). 20 tablet 06/20/2025 07/20/2025 Chris Chiu MD Discharge Instructions You were seen and evaluated in the emergency department today for generalized weakness, abdominal pain, bloody stool. After reviewing your scans we have determined that your symptoms are consistent with ulcerative colitis and after speaking with the GI doctor on-call we have determined that these are common side effects of your new medication. Please take her Bentyl as needed over the weekend andfollow up with your GI doctor on Monday. Please return to ED if your symptoms worsen, change in location, change in severity, new symptoms develop or if you become concerned for your health. Disposition Discharge AVS (Italian Snapshot) - Printed 06/20/2025 Follow-Ups: Follow up with Ximena Swenson APRN; As needed - [1] Past Medical History: Diagnosis Date Allergies Emphysema lung (CMS/HCC) mild Family history of pseudocholinesterase deficiency HLD (hyperlipidemia) [2] Past Surgical History: Procedure Laterality Date NO PAST SURGERIES [3] Family History Problem Relation Name Age of Onset Anesthesia problems Neg Hx Malig Hyperthermia Neg Hx [4] Tobacco Use Smoking status: Every Day Current packs/day: 0.25 Types: Cigarettes Smokeless tobacco: Never Tobacco comments: Trying to quit, down to about 10 cigs a day. Smoked about 2 ppd for 25 years. Vaping Use Vaping status: Never Used Substance Use Topics Alcohol use: Never Drug use: Never [5] No Known Allergies Nikki Nobles MD Resident 06/20/252235 Cosigned by Chris Chiu MD at 06/29/2025 7:42 AM EDT Associated attestation - Chris Chiu MD - 06/29/2025 7:42 AM EDT I saw and evaluated the patient with the resident/fellow. I discussed the case with the resident/fellow and agree with the findings and plan as documented. * ED Triage Notes - [place] Pacheco RN - 06/20/2025 3:00 PM EDT Patient has had colitis for the past two months, recently treated with meds with s//s getting worse. Abdominal pain, diarrhea, and rectal bleeding. documented in this encounter Plan of Treatment Not on file documented as of this encounter Procedures Procedure Name Priority Date/Time Associated Diagnosis Comments SARS-COV-2, FLU A, FLU B, AND RSV - RAPID STAT 06/20/2025 6:[address] ABDOMEN PELVIS W IV CONTRAST STAT 06/20/2025 5:36 PM EDT COMPREHENSIVE GI PANEL BY PCR STAT 06/20/2025 5:18 PM EDT FECAL LACTOFERRIN STAT 06/20/2025 5:1 8 PM EDT CALPROTECTIN, FECAL BY IMMUNOASSAY (SO) STAT 06/20/2025 5:18 PM EDT ED HIV 1/2 ANTIBODY/ANTIGEN SCREEN WITH REFLEX TO HIV I/II DIFFERENTIATION STAT 06/20/2025 3:56 PM EDT ED PROTOCOL HIV 1/2 ANTIBODY/ANTIGEN SCREEN W/REFLEX TO HIV 1/2 ANTIBODY DIFFERENTIATION STAT 06/20/2025 3:56 PM EDT LACTATE, VENOUS STAT 06/20/2025 3:56 PM EDT HEPATITIS C ANTIBODY - ED W/REFLEX TO HCV QUANT PCR STAT 06/20/2025 3:56 PM EDT CBC WITH AUTO DIFFERENTIAL STAT 06/20/2025 3:56 PM EDT LIPASE, PLASMA STAT 06/20/2025 3:56 PM EDT COMPREHENSIVE METABOLIC PANEL, PLASMA STAT 06/20/2025 3:56 PM EDT documented in this encounter Results * SARS-CoV-2, Flu A, Flu B, and RSV - Rapid (06/20/2025 6:22 PM EDT) SARS CoV-2/COVID-19 RNA PCR Result Not Detected Not Detected 06/20/2025 7:24 PM EDT [facility] Influenza A Virus PCR Result Not Detected Not Detected 06/20/2025 7:24 PM EDT [facility] Influenza B Virus PCR Result Not Detected Not Detected 06/20/2025 7:24 PM EDT [facility] Respiratory Syncytial Virus (RSV) PCR Result Not Detected Not Detected 06/20/2025 7:24 PM EDT [facility] Swab Nasopharyngeal structure / Unknown Non-blood Collection / Unknown 06/20/2025 6:22 PM EDT 06/20/2025 6:36 PM EDT Narrative [facility] - 06/20/2025 7:24 PM EDT This test is FDA approved for use with nasopharyngeal specimens in Viral Transport Media (VTM). This test is used for clinical purposes. It should not be regarded as investigational or for research. This laboratory is certified under the Clinical Laboratory improvement Amendments of 1988 (CLIA-88 as qualified to perform high complexity clinical laboratory testing. This test was performed on the Xpert Xpress SARS CoV-2 Plus assay test, a PCR- based method. Negative results should be considered presumptive and do not preclude current or future infection obtained through community transmission or other exposures. Negative results must be considered in the context of an individual's recent exposures, history, presence of clinical signs and symptoms consistent with COVID-19. Chris Chiu MD LAB MICROBIOLOGY - GENERAL ORDER SANDRA Final Result [facility] [address] [place] [address] * CT Abdomen Pelvis w IV Contrast (06/20/2025 5:36 PM EDT) Anatomical Region Laterality Modality Abdomen, Pelvis Computed Tomogra phy Impressions 06/20/2025 6:49 PM EDT Findings consistent with colitis, which can be infectious or inflammatory. No evidence of perforation. CRITICAL RESULT: No. COMMUNICATION: Per this written report. Drafted by Anderson Cadroza MD on 06/20/2025 6:45 PM Final report signed by Anderson Cardoza MD on 06/20/2025 6:49 PM Narrative 06/20/2025 6:49 PM EDT CLINICAL INDICATION: Abdominal pain, acute, nonlocalized TECHNIQUE: Imaging of the abdomen and pelvis was performed, from lung bases through pubic symphysis, using spiral technique, following administration of IV contrast, Omnipaque 300, 100 mL. Delayed (excretory phase) images were performed through the kidneys. Reformatted images in the coronal and sagittal planes were generated from the axial data set to facilitate diagnostic accuracy. Total DLP (Dose-Length Product): 613.70 mGy.cm. Please note: The reported value represents the total of one or more individual components during the CT acquisition on this date and at this time, and as such, the same value may appear in more than one CT report depending on the interpreting/reporting physicians. COMPARISON: None. FINDINGS: Lung Bases: The lung bases are clear. Liver/Gallbladder/Biliary system: The liver demonstrates homogeneous enhancement. Normal Gallbladder. No intra- or extra-hepatic biliary ductal dilatation. Spleen: The spleen enhances homogeneously. Pancreas: The pancreas enhances homogeneously. Adrenals: The adrenals are morphologically unremarkable. Kidneys: The kidneys demonstrate symmetric nephrogram and excretion. No renal or ureteral calculi. No hydronephrosis. Bowel/Mesentery: The small bowel loops are not dilated. The colon demonstrates wall thickening and adjacent mesenteric edema. The appendix is visualized and normal. Vessels/Lymph Nodes: Mild calcified atherosclerotic disease of the abdominal aorta and major constituent branches. No lymphadenopathy within the abdomen or pelvis. Fluid Survey: No free fluid in the abdomen. No free fluid in the pelvis. Pelvis: The pelvic viscera are unremarkable. Body Wall: Normal. Bones: No acute fracture. Severe anterolisthesis of L5 on S1 with loss of intervertebral disc space. Procedure Note Anderson Cardoza MD - 06/20/2025 CLINICAL INDICATION: Abdominal pain, acute, nonlocalized TECHNIQUE: Imaging of the abdomen and pelvis was performed, from lung bases throughpubic symphysis, using spiral technique, following administration of IVcontrast, Omnipaque 300, 100 mL. Delayed (excretory phase) images wereperformed through the kidneys. Reformatted images in the coronal andsagittal planes were generated from the axial data set to facilitatediagnostic accuracy. Total DLP (Dose-Length Product): 613.70 mGy.cm. Please note: The reportedvalue represents the total of one or more individual components during theCT acquisition on this date and at this time, and as such, the same valuemay appear in more than one CT report depending on theinterpreting/reporting physicians. COMPARISON: None. FINDINGS: Lung Bases: The lung bases are clear. Liver/Gallbladder/Biliary system: The liver demonstrates homogeneousenhancement. Normal Gallbladder. No intra- or extra-hepatic biliary ductaldilatation. Spleen: The spleen enhances homogeneously. Pancreas: The pancreas enhances homogeneously. Adrenals: The adrenals are morphologically unremarkable. Kidneys: The kidneys demonstrate symmetric nephrogram and excretion. Norenal or ureteral calculi. No hydronephrosis. Bowel/Mesentery: The small bowel loops are not dilated. The colondemonstrates wall thickening and adjacent mesenteric edema. The appendixis visualized and normal. Vessels/Lymph Nodes: Mild calcified atherosclerotic disease of theabdominal aorta and major constituent branches. No lymphadenopathy withinthe abdomen or pelvis. Fluid Survey: No free fluid in the abdomen. No free fluid in the pelvis. Pelvis: The pelvic viscera are unremarkable. Body Wall: Normal. Bones: No acute fracture. Severe anterolisthesis of L5 on S1 with loss ofintervertebral disc space. IMPRESSION: Findings consistent with colitis, which can be infectious or inflammatory.No evidence of perforation. CRITICAL RESULT: No. COMMUNICATION: Per this written report. Drafted by Anderson Cardoza MD on 06/20/2025 6:45 PM Final report signed by Anderson Cardoza MD on 06/20/2025 6:49 PM Chris Chiu MD IM CT PROCEDURES Final Result * Comprehensive GI Panel by PCR (06/20/2025 5:18 PM EDT) Campylobacter PCR Result Not Detected Not Detected 06/20/2025 9:37 PM EDT [facility] Plesiomonas shigelloides PCR Result Not Detected Not Detected 06/20/2025 9:37 PM EDT [facility] Salmonella PCR Result Not Detected Not Detected 06/20/2025 9:37 PM EDT [facility] Vibrio species PCR Result Not Detected Not Detected 06/20/2025 9:37 PM EDT [facility] Vibrio cholerae PCR Result Not Detected Not Detected 06/20/2025 9:37 PM EDT [facility] Yersinia enterocolitica PCR Result Not Detected Not Detected 06/20/2025 9:37 PM EDT [facility] Enteroaggregative E. coli (EAEC) PCR Result Not Detected Not Detected 06/20/2025 9:37 PM EDT [facility] Enteropathogenic E. coli (EPEC) PCR Result Not Detected Not Detected 06/20/2025 9:37 PM EDT [facility] Enterotoxigenic E. coli (ETEC) lt/st PCR Result Not Detected Not Detected 06/20/2025 9:37 PM EDT [facility] Shiga-like Toxin-Producing E.coli (STEC) stx1/stx2 PCR Resu Not Detected Not Detected 06/20/2025 9:37 PM EDT [facility] E coli 0157 PCR Result Not Detected Not Detected 06/20/2025 9:37 PM EDT [facility] Shigella/Enteroinvas stanislav E. coli (EIEC) PCR Result Not Detected Not Detected 06/20/2025 9:37 PM EDT [facility] Cryptosporidium PCR Result Not Detected Not Detected 06/20/2025 9:37 PM EDT [facility] Cyclospora cayetanensis PCR Result Not Detected Not Detected 06/20/2025 9:37 PM EDT [facility] Entamoeba histolytica PCR Result Not Detected Not Detected 06/20/2025 9:37 PM EDT [facility] Giardia duodenalis (aka Giardia lamblia) PCR Result Not Detected Not Detected 06/20/2025 9:37 PM EDT [facility] Adenovirus F 40/41 PCR Result Not Detected Not Detected 06/20/2025 9:37 PM EDT [facility] Astrovirus PCR Result Not Detected Not Detected 06/20/2025 9:37 PM EDT [facility] Norovirus GI/GII PCR Result Not Detected Not Detected 06/20/2025 9:37 PM EDT [facility] Rotavirus A PCR Result Not Detected Not Detected 06/20/2025 9:37 PM EDT [facility] Sapovirus PCR Result Not Detected Not Detected 06/20/2025 9:37 PM EDT [facility] Stool Rectum structure / Unknown Non-blood Collection / Unknown 06/20/2025 5:18 PM EDT 06/20/2025 5:43 PM EDT Narrative [facility] - 06/20/2025 9:37 PM EDT This specimen was tested for the following analytes: Campylobacter species, Plesiomonas shigelloides, Salmonella species, Vibrio species, Vibrio cholerae, Yersinia enterolitica, Enteroaggregative E. coli (EAEC), Enteropathogenic E. Coli (EPEC), Enterotoxigenic E. coli (ETEC), Shiga-like toxin-producing E. coli (STEC), Shigella/Enteroinvasive E. coli (EIEC), Cryptosporidium, Cyclospora cayetanensis, Entamoeba histolytica, Giardia lamblia, Adenovirus f40/41, Astrovirus, Norovirus GI/GII, Rotavirus A, and Sapovirus. Note: Clostridium difficile toxin a/b will no longer be resulted using this platform. Please order the Clostridium difficile by PCR assay if clinically indicated. Chris Chiu MD LAB MICROBIOLOGY - GENERAL ORDER SANDRA Final Result [facility] [address] [place] [address] * (ABNORMAL) Calprotectin, Stool (06/20/2025 5:18 PM EDT) CALPROTECTIN 2120(H) <=49 ug/g 06/25/2025 3:24 PM EDT [facility] ([facility]) Stool Stool specimen / Unknown Non-blood Collection / Unknown 06/20/2025 5:18 PM EDT 06/20/2025 7:02 PM EDT Narrative [facility] ([facility]) - 06/25/2025 3:24 PM EDT REFERENCE INTERVAL: Calprotectin, Fecal by Immunoassay Less than 50 ug/g........Normal 50-120 ug/g..............Borderline elevated, test should be re-evaluated in 4-6 weeks. 121 ug/g or greater......Elevated Performed By: [facility] [address] [place] [address] Pet Care Attendant: Jerman Elias MD, PhD CLIA Number: [id number] us Chris Chiu MD LAB BODY FLUIDS AND STOOLS ORDER SANDRA Final Result [facility] ([facility]) [address] [place] [address] * (ABNORMAL) Fecal Lactoferrin (06/20/2025 5:18 PM EDT) Fecal Lactoferrin Result Positive( A) Negative 06/21/2025 6:07 AM EDT [facility] Stool Rectum structure / Unknown Non-blood Collection / Unknown 06/20/2025 5:18 PM EDT 06/20/2025 5:43 PM EDT Narrative [facility] - 06/21/2025 6:07 AM EDT NOTE: If patient is a breastfed child, results may be falsely positive. us Chris Chiu MD LAB MICROBIOLOGY - GENERAL ORDER SANDRA Final Result [facility] [address] [place] [address] * ED HIV 1/2 Antibody/Antigen Screen w/Reflex to HIV 1/2 Differentiation (06/20/2025 3:56 PM EDT) HIV 1 & 2 Antibody/Antigen Screen Non Reactive Non Reactive 06/20/2025 4:53 PM EDT [facility] Comment:Screening for HIV 1 & 2 antibodies, and P24 antigen is NONREACTIVE. No confirmatory testing is required. Blood Venous blood specimen / Unknown Venipuncture / Unknown 06/20/2025 3:56 PM EDT 06/20/2025 4:13 PM EDT us Chris Chiu MD LAB BLOOD ORDERABLES Final Resul t Performing Organization Address City/[facility]/ZIP Co de Phone Number [facility] [address] [place] [address] * Hepatitis C Antibody - ED (06/20/2025 3:56 PM EDT) Hepatitis C Antibody Negative Negative 06/20/2025 4:53 PM EDT [facility] Blood Venous blood specimen / Unknown Venipuncture / Unknown 06/20/2025 3:56 PM EDT 06/20/2025 4:13 PM EDT us Chris Chiu MD LAB BLOOD ORDERABLES Final Resul t Performing Organization Address City/[facility]/ZIP Co de Phone Number [facility] [address] [place] [address] * Lactic acid, venous (06/20/2025 3:56 PM EDT) Pathologist [facility] Lactate, Venous, Whole Blood 0.8 0.5 - 2.2 mmol/L LAB HEMATOLOGY METHOD 06/20/2025 4:09 PM EDT [facility] Blood Venous blood specimen / Unknown Venipuncture / Unknown 06/20/2025 3:56 PM EDT 06/20/2025 4:07 PM EDT us Chris Chiu MD LAB BLOOD ORDERABLES Final Resul t Performing Organization Address City/[facility]/ZIP Co de Phone Number [facility] [address] [place] [address] * (ABNORMAL) CBC w/diff (06/20/2025 3:56 PM EDT) WBC Count 9.11 3.70 - 10.30 10*3/uL LAB HEMATOLOGY METHOD 06/20/2025 4:09 PM EDT [facility] RBC Count 3.46(L) 4.60 - 6.10 10*6/uL LAB HEMATOLOGY METHOD 06/20/2025 4:09 PM EDT [facility] HGB 9.0(L) 13.7 - 17.5 g/dL LAB HEMATOLOGY METHOD 06/20/2025 4:09 PM EDT [facility] HCT 28.5(L) 40.0 - 51.0 % LAB HEMATOLOGY METHOD 06/20/2025 4:09 PM EDT [facility] Platelet Count 335 155 - 369 10*3/uL LAB HEMATOLOGY METHOD 06/20/2025 4:09 PM EDT [facility] MCV 82 79 - 98 fL LAB HEMATOLOGY METHOD 06/20/2025 4:09 PM EDT [facility] MCH 26.0 26.0 - 32.0 pg LAB HEMATOLOGY METHOD 06/20/2025 4:09 PM EDT [facility] MCHC 31.6 30.7 - 35.5 g/dL LAB HEMATOLOGY METHOD 06/20/2025 4:09 PM EDT [facility] RDW 13.8 11.5 - 14.5 % LAB HEMATOLOGY METHOD 06/20/2025 4:09 PM EDT [facility] MPV 9.1 8.8 - 12.5 fL LAB HEMATOLOGY METHOD 06/20/2025 4:09 PM EDT [facility] nRBC 0.0 <=0.0 per 100 WBCs LAB HEMATOLOGY METHOD 06/20/2025 4:09 PM EDT [facility] Differential Type Automated LAB HEMATOLOGY METHOD 06/20/2025 4:09 PM EDT [facility] Neutrophils % 76 % LAB HEMATOLOGY METHOD 06/20/2025 4:09 PM EDT [facility] Lymphocytes % 13 % LAB HEMATOLOGY METHOD 06/20/2025 4:09 PM EDT [facility] Monocytes % 6 % LAB HEMATOLOGY METHOD 06/20/2025 4:09 PM EDT [facility] Eosinophils % 4 % LAB HEMATOLOGY METHOD 06/20/2025 4:09 PM EDT [facility] Basophils % 0 % LAB HEMATOLOGY METHOD 06/20/2025 4:09 PM EDT [facility] Immature Granulocytes % 1 % LAB HEMATOLOGY METHOD 06/20/2025 4:09 PM EDT [facility] Neutrophils Absolute 6.94(H) 1.60 - 6.10 10*3/uL LAB HEMATOLOGY METHOD 06/20/2025 4:09 PM EDT [facility] Lymphocytes Absolute 1.20 1.20 - 3.90 10*3/uL LAB HEMATOLOGY METHOD 06/20/2025 4:09 PM EDT [facility] Monocytes Absolute 0.54 0.30 - 0.90 10*3/uL LAB HEMATOLOGY METHOD 06/20/2025 4:09 PM EDT [facility] Eosinophils Absolute 0.35 0.00 - 0.50 10*3/uL LAB HEMATOLOGY METHOD 06/20/2025 4:09 PM EDT [facility] Basophils Absolute 0.03 0.00 - 0.10 10*3/uL LAB HEMATOLOGY METHOD 06/20/2025 4:09 PM EDT [facility] Immature Granulocytes Absolute 0.05 0.00 - 0.06 10*3/uL LAB HEMATOLOGY METHOD 06/20/2025 4:09 PM EDT [facility] Blood Venous blood specimen / Unknown Venipuncture / Unknown 06/20/2025 3:56 PM EDT 06/20/2025 4:07 PM EDT Narrative [facility] - 06/20/2025 4:09 PM EDT Therapeutic decision making should be based on absolute values, rather than percentages. us Chris Chiu MD LAB BLOOD ORDERABLES Final Resul t [facility] [address] [place] [address] * Lipase (06/20/2025 3:56 PM EDT) Lipase, Plasma 26 19 - 63 U/L 06/20/2025 4:28 PM EDT [facility] Blood Venous blood specimen / Unknown Venipuncture / Unknown 06/20/2025 3:56 PM EDT 06/20/2025 4:07 PM EDT us Chris Chiu MD LAB BLOOD ORDERABLES Final Resul t [facility] [address] [place] [address] * (ABNORMAL) CMP (06/20/2025 3:56 PM EDT) Glucose, Plasma 114(H) 74 - 99 mg/dL 06/20/2025 4:28 PM EDT [facility] BUN, Plasma 10 7 - 21 mg/dL 06/20/2025 4:28 PM EDT [facility] Creatinine, Plasma 0.92 0.70 - 1.20 mg/dL 06/20/2025 4:28 PM EDT [facility] BUN/Creatinine Ratio 11 06/20/2025 4:28 PM EDT [facility] Sodium, Plasma 136 136 - 145 mmol/L 06/20/2025 4:28 PM EDT [facility] Potassium, Plasma 3.6 3.6 - 4.9 mmol/L 06/20/2025 4:28 PM EDT [facility] Chloride, Plasma 101 97 - 107 mmol/L 06/20/2025 4:28 PM EDT [facility] CO2, Plasma 24 22 - 29 mmol/L 06/20/2025 4:28 PM EDT [facility] Anion Gap 11 6 - 16 mmol/L 06/20/2025 4:28 PM EDT [facility] Total Calcium, Plasma 8.6(L) 8.9 - 10.2 mg/dL 06/20/2025 4:28 PM EDT [facility] Total Protein 7.1 6.3 - 7.9 g/dL 06/20/2025 4:28 PM EDT [facility] Albumin, Plasma 3.8 3.5 - 5.2 g/dL 06/20/2025 4:28 PM EDT [facility] AST, Plasma 15 10 - 50 U/L 06/20/2025 4:28 PM EDT [facility] ALT, Plasma 11 10 - 50 U/L 06/20/2025 4:28 PM EDT [facility] Alkaline Phosphatase, Plasma 59 40 - 115 U/L 06/20/2025 4:28 PM EDT [facility] Total Bilirubin, Plasma 0.4 0.2 - 1.1 mg/dL 06/20/2025 4:28 PM EDT [facility] eGFRcr 105.2 mL/min/1.7 3m*2 06/20/2025 4:28 PM EDT [facility] Comment:Reported eGFRcr in m L/min/1.73m2 is based the CKD-EPI 2020 equation that does not use a race coefficient. Blood Venous blood specimen / Unknown Venipuncture / Unknown 06/20/2025 3:56 PM EDT 06/20/2025 4:07 PM EDT us Chris Chiu MD LAB BLOOD ORDERABLES Final Resul t [facility] [address] [place] [address] documented in this encounter Visit Diagnoses Diagnosis Generalized abdominal pain- Primary Abdominal pain, generalized Other ulcerative colitis with rectal bleeding (CMS/HCC) documented in this encounter Administered Medications Inactive Administered Medications - up to 3 most recent administrations Medication Order MAR Action Action Date Dose Rate Site dicyclomine (Bentyl) tablet 20 mg 20 mg, Oral, Once, 1 dose, On Mon06/20/25 at 1730, STAT Given 06/20/2025 6:21 PM EDT 20 mg iohexol (OMNIPaque) 300 MG/ML injection 100 mL 100 mL, Intravenous, Once in imaging, 1 dose, Starting on Mon06/20/25 at 1607, Until Mon06/20/25 at 1729, Routine, Imaging Protocol Orders Given 06/20/2025 5:29 PM EDT 100 mL lactated Ringer's infusion 1,000 mL 1,000 mL, Intravenous, Once, 1 dose, On Mon06/20/25 at 1550, STAT New Bag 06/20/2025 4:36 PM EDT 1,000 mL morphine PF 4 mg 4 mg, Intravenous, Every 1 hour PRN, 3 doses, Starting on Mon06/20/25 at 1544, Until Mon06/20/25 at 2205, STAT, Moderate/Severe Pain > or =3: CPOT; > or =4: FLACC, PAINAD, NPASS, NRS, Espinosa-Cardozo Faces; > or =5: DVPRS, NIPS ondansetron (Zofran) injection 4 mg 4 mg, Intravenous, Every 6 hours PRN, Starting on Mon06/20/25 at 1543, Until Mon06/20/25 at 2205, STAT, nausea, vomiting documented in this encounter Active and Recently Administered Medications Times are shown in EDT. Scheduled Medication Order 06/18/2025 06/19/2025 06/20/2025 dicyclomine (Bentyl) tablet 20 mg (COMPLETED) 20 mg, Oral, Once, 1 dose, On Mon06/20/25 at 1730, STAT 1821 (Given - Provid er: Jose M Alejandro, AYUSH) iohexol (OMNIPaque) 300 MG/ML injection 100 mL (COMPLETED) 100 mL, Intravenous, Once in imaging, 1 dose, Starting on Mon06/20/25 at 1607, Until Mon06/20/25 at 1729, Routine, Imaging Protocol Orders 1729 (Given - Provid er: Kiana Hunter) lactated Ringer's infusion 1,000 mL (COMPLETED) 1,000 mL, Intravenous, Once, 1 dose, On Mon06/20/25 at 1550, STAT 1636 (New Bag - Prov ider: Jose M Alejandro RN)1745 (Stopped - Provider: Montrell English RN) PRN Medication Order 06/18/2025 06/19/2025 06/20/2025 morphine PF 4 mg 4 mg, Intravenous, Every 1 hour PRN, 3 doses, Starting on Mon06/20/25 at 1544, Until Mon06/20/25 at 2205, STAT, Moderate/Severe Pain > or =3: CPOT; > or =4: FLACC, PAINAD, NPASS, NRS, Espinosa-Cardozo Faces; > or =5: DVPRS, NIPS ondansetron (Zofran) injection 4 mg 4 mg, Intravenous, Every 6 hours PRN, Starting on Mon06/20/25 at 1543, Until Mon06/20/25 at 2205, STAT, nausea, vomiting documented in this encounter Additional Health Concerns Infection Onset Date Last Indicated Resolved Time Gastrointestinal Rule-Out 06/20/2025 06/20/2025 7:41 PM EDT COVID-19 Rule-Out 06/20/2025 06/20/2025 06/20/2025 7:24 PM EDT Assessment Noted Time A Body Mass Index follow-up plan has been documented for the patient 07/29/2023 9:05 PM EST documented as of this encounter Care Teams Button Breaker Relationship Specialty Start Date End Date Ximena Swenson APRN [address] [place] [id number] PCP - General 07/07/23 documented as of this encounter
--- OUTSIDE RECORDS SUMMARY | 2025-06-25 06:55 | XMS_ITS | Continuity of Care Document ---
Author Organization [facility] Address [address] [place] [address] Phone Care Team Providers [facility] Name Role Phone Messi MSN, [employer] DAT[employer]ASE DEVELOPER, Ximena Unavailable Unavai lable Allergies, Adverse Reactions, Alerts Substance Reaction Status Criticality No Known Allergies Active No Inform ation Medications Medication Instructions Dosage Effective Dates (start - stop) Status Comments escitalopram 20 mg tablet take 1 tablet by oral route every day 20 MG - Active EQ All Day Allergy Relief 10 MG Oral Tablet Take 1 tablet by mouth once daily - Active Rosuvastatin Calcium 20 MG Oral Tablet Take 1 tablet by mouth once daily - Active Co Q-10 100 mg capsule Take one capsule via oral route daily - Active Bianka Allergy 180 mg tablet take 1 tablet by oral route every day 180 MG - Active fluticasone propionate 50 mcg/actuation nasal spray,suspension use one spray to each nare daily - Active rizatriptan [address] 1 tablet by translingual route on top of tongue, allow to dissolve then swallow once, may repeat every 2 hrs; max 30 mg/24 hrs 10 MG - Active omeprazole 40 mg capsule,delayed release take 1 capsule by oral route every day before a meal 40 MG - Active dicyclomine 10 mg capsule take 1 capsule by oral route 3 times every day 10 MG - Active Advance Directives Directive Yes / No Effective Date File Name No Information Encounters Encounter Description Practice Location Reason(s) For Visit Diagnoses Date Provider [facility], [address] [place] [address], [address], [place] tel:[phone] [facility] [place] No Information 0 8- 5 Swenson Ximena. [address] [place], [place], [id number] , [place]. tel: [phone] [facility], [address] [place] [address], [address], [place] tel:[phone] [place] No Information 0 6-202 5 Petr Trejo. [address], [place], [id number] , [place]. tel:[phone] [facility], [address] [place] [address], [address], [place] tel:[phone] [facility] [place] No Information 2 2- 5 Swenson Ximena. [address], [place], [id number] , [place]. tel: [phone] [facility], [address] [place] [address], [address], [place] tel:[phone] [facility] [place] No Information 0 9 5 Swenson Ximena. [address], [place], [id number] , [place]. tel: [phone] [facility], [address] [place] [address], [address], [place] tel:[phone] [facility] [place] No Information Dec-0 9-202 5 Swenson Ximena. [address], [place], [id number] , [place]. tel: [phone] [facility], [address] [place] [address], [address], [place] tel:[phone] [facility] [place] headaches (chief complaint) Depression screening (chief complaint) Prapare (chief complaint) Encounter for screening for depressionAcute serous otitis media, left earPeriodic headache syndrome w/ refractory migraine in adultEncounter for screening for diseases of the blood and blood-forming organs and certain disorders involving the immune mechanismAnxietyGERD disease w/ esophagitis, w/o bleedingBody mass index [BMI] 26.0-26.9, adultTrigeminal neuralgia 5 Messi Bueno. [address] [place], [place], [id number] , . tel:[phone] [facility], [address] [place] [address], [facility], tel:[phone] [facility] [place] travel consult (chief complaint) Body mass index [BMI] 27.0-27.9, adultEn[facility] safety counseling for (international) travel 4 Messi Bueno. [address] [place], [place], [id number] , . tel:[phone] [facility], [address] [place] [address], [facility], tel:[phone] [facility] [place] flu vaccine (chief complaint) No Information 4 Messi Bueno. [address], [place], [id number] , [place]. tel:[phone] [facility], [address] [place] [address], [facility], tel:[phone] [facility] [place] f/u on Meds (chief complaint) AnxietyDiarrhea, unspecifiedGERD disease w/ esophagitis, w/o bleedingFatigueEncounter for screening for cancer of colonAbdominal painEncounter for screening for depressionEncounter for screening examination for other mental health and behavioral disordersBody mass index [BMI] 27.0-27.9, adult Fe 4 Messi Bueno. [address], [place], [id number] , . tel:[phone] [facility], [address] [place] [address], [facility], tel:[phone] [facility] [place] f/u MRI (chief complaint) Body mass index [BMI] 26.0-26.9, adultAnxietyDiarrhea, unspecifiedGERD disease w/ esophagitis, w/o bleeding 4 Swenson Ximena. [address] [place], [place], [address] , . tel: [phone] [facility], [address] [place] [address], [facility], tel:[phone] [facility] [place] f/u labs (chief complaint) Syncope and collapsePeriodic headache syndrome w/ refractory migraine in adultDizzinessGERD disease w/ esophagitis, w/o bleedingMaxillary fracture, left side, subsequent encounter for fracture with routine healingVitamin B12 deficiency anemia, unspecifiedHyperlipidemia Body mass index [BMI] 26.0-26.9, adult Aug- 3 Swenson Ximena. [address] [place], [place], [address] , [place]. tel: [phone] [facility], [address] [place] [address], [facility], tel:[phone] [facility] [place] FASTING LABS (chief complaint) Hyperlipidemia 3 Swenson Ximena. [address] [place], [place], [id number] , [place]. tel: [phone] [facility], [address] [place] [address], [facility], [place] tel:[phone] [facility] [place] ER f/u (chief complaint) Encounter for immunizationNicotine dependence, cigarettes, uncomplicatedHyperlipidem iaMaxillary fracture, left side, sequelaFracture of orbital floor, left side, sequelaBody mass index [BMI] 24.0-24.9, adultSyncope and collapseMaxillary fracture, left side, subsequent encounter for fracture with routine healingFracture of orbital floor, left side, subsequent encounter for fracture with routine healing 3 Swenson Ximena. [address] [place], [place], [id number] , [place]. tel: [phone] [facility], [address] [place] [address], [facility], tel:[phone] [facility] [place] Skin Rash (chief complaint) shoulder pain (chief complaint) Body mass index [BMI] 25.0-25.9, adultRashBursitis of right shoulder 3 Swenson Ximena. [address] [place], [place], [id number] , [place]. tel: [phone] [facility], [address] [place] [address], [facility], tel:[phone] [facility] [place] Wellness exam (chief complaint) Encounter for screening for depressionEncounter for screening examination for other mental health and behavioral disordersEncounter for screening for diseases of the blood and blood-forming organs and certain disorders involving the immune mechanismBody mass index [BMI] 25.0-25.9, adultVitamin B12 deficiency anemia, unspecifiedHyperlipidemia Encounter for immunizationNicotine dependence, cigarettes, uncomplicatedEncounter for general adult medical examination without abnormal findings 3 Swenson Ximena. [address] [place], [place], [address] , [place]. tel: [phone] [address], [facility], tel:[phone] [facility] [place] Ear pain (chief complaint) COVID-19Acute serous otitis media, left earEncounter for screening for COVID-19 2 Swenson Ximena. [address] [place], [place], [id number] , [place]. tel:[phone] [facility], [address] [place] [address], [address], [place] tel:[phone] [facility] [place] Anemia (chief complaint) Vitamin B12 deficiency anemia, unspecified May-3 1-202 2 Swenson Ximena. [address], [place], [id number] , [place]. tel: [phone] [facility], [address] [place] [address], [facility], [place] tel:[phone] [facility] [place] B12 injection and Labs to recheck B12 level (chief complaint) Vitamin B12 deficiency anemia, unspecified May-2 4-202 2 Swenson Ximena. [address] [place], [place], [address] , [place]. tel: [phone] [facility], [address] [place] [address], [facility], tel:[phone] [facility] [place] 12 INJECTION (chief complaint) Vitamin B12 deficiency anemia, unspecified May-1 7-202 2 Swenson Ximena. [address], [place], [address] , [place]. tel: [phone] [facility], [address] [place] [address], [facility], [place] tel:[phone] [facility] [place] B12 injection (chief complaint) Vitamin B12 deficiency anemia, unspecified May-1 0-202 2 Swenson Ximena. [address], [place], [address] , [place]. tel: [phone] [facility], [address] [place] [address], [address], [place] tel:[phone] [facility] [place] Vitamin B12 deficiency anemia, unspecified May-0 9-202 2 Swenson Ximena. [address] [place], [place], [address] , [place]. tel: [phone] [facility], [address] [place] [address], [address], [place] tel:[phone] [facility] [place] No Information 0 3-202 2 Swenson Ximena. [address] [place], [place], [address] , [place]. tel: [phone] [facility], [address] [place] [address], [facility], [place] tel:[phone] [facility] [place] No Information 2 6-202 2 Swenson Ximena. [address], [place], [address] , [place]. tel: [facility], [address] [place] [address], [facility], [place] tel:[phone] [facility] [place] No Information 2 1-202 2 Swenson Ximena. [address] [place], [place], [address] , [place]. tel: [facility], [address] [place] [address], [facility], [place] tel:[phone] [facility] [place] No Information 0 9-202 2 Swenson Ximena. [address], [place], [address] , [place]. tel: [facility], [address] [place] [address], [facility], [place] tel:[phone] [facility] [place] No Information 2 0-202 2 Swenson Ximena. [address] [place], [place], [address] , [place]. tel: [facility], [address] [place] [address], [address], [place] tel:[phone] [facility] [place] No Information 0 5-202 2 Swenson Ximena. [address], [place], [address] , . tel: [phone] Family History Family Member Type Diagnosis Age At Onset Brother Problem Diabetes mellitus Maternal grandfather Problem malignant neoplasm o f lung Maternal grandmother Problem brain aneurysm Son Problem Alive and well Daughter Problem Alive and well Father Problem Heart attack Paternal grandmother Problem (finding) Paternal grandfather Problem (finding) Brother Problem coronary arteriosclerosis Maternal grandfather Problem (finding) Immunizations Vaccine Date Status Comments Influenza virus vaccine, trivalent (IIV3), split virus, preservative free, 0.5 mL dosage, for intramuscular use administered Source: Ne w Immunization Record Influenza Flulaval administered Source: N ew Immunization Record SARS-COV-2 (COVID-19) vaccin e, mRNA, spike protein, LNP, bivalent booster, preservative free, 50 mcg/0.5 mL or 25 mcg/0.25 mL dose (Moderna) administered Source: New I mmunization Record Influenza Flulaval administered Source: N ew Immunization Record COVID-19 mRNA (PFR) administered Source: Other Registry COVID-19 mRNA (PFR) administered Source: Other Registry Payers Payer name Insurance type Covered libertarian ID Authoriza tion(s) [place] [id number] [place] [facility] [id number] [place] [employer] [facility] [id number] [place] [id number] Social History Type Description Quantity Date Captured Comments Alcohol Use Details Unknown Caffeine Use Details Unknown Tobacco Use Status No Information Smoking Status No Information Sex Male Sexual Orientation Straight or heterosexual Sep Gender Identity Male Chief Complaint And Reason For Visit No Information Plan Of Treatment Date Type Action Status Goal Hematocrit/Hemoglobin. Due o n due Goal Unhealthy drug use screening due Goal Lipid panel. Due on 026 due Goal CBC. Due on due Goal Drug Abuse Screening Test (D AST). Due on due Goal Vitamin B12. Due on due Goal HIV screen due Goal Vitamin D. Due on due Goal Generalized Anxi ety Disorder - 7 (DEISI-7). Due on due Goal Obtain Height, Weight, and B CT. Due on due Goal Tobacco Use Screening. Due o n due Goal Depression screening. Due on due Goal Hemoglobin (Preemie/HR 9 mon ths). Due on due Goal Tobacco screening. Due on due Goal CMP. Due on due Goal Hepatitis C Screening due Goal Follow up Plan f or abnormal BMI (Less than 18.5, greater than 25). Due on due Goal Diabetes screening. Due on N due Goal Influenza vaccine. Due on Oc due Goal Tobacco Use Cessation Counse ling. Due on due Goal Drug Abuse Scree catracho Test (DAST-10). Due on due Goal Lipid panel. Due on due Goal Vitamin D. Due on 4 due Goal Hepatitis C Screening due Goal Follow up Plan f or abnormal BMI (Less than 18.5, greater than 25). Due on due Goal CMP. Due on due Goal Tobacco screening. Due on Ju due Goal Unhealthy drug use screening due Goal Diabetes screening. Due on N due Goal Drug Abuse Scree catracho Test (DAST-10). Due on due Goal Tobacco Use Cessation Counse ling. Due on due Goal Hemoglobin (Preemie/HR 9 mon ths). Due on due Goal HIV screen due Goal Tobacco Use Screening. Due o n due Goal CBC. Due on due Goal Generalized Anxi ety Disorder - 7 (DEISI-7). Due on due Goal Drug Abuse Screening Test (D AST). Due on due Goal Hematocrit/Hemoglobin. Due o n due Goal Obtain Height, Weight, and B CT. Due on due Goal Depression screening. Due on due Goal Influenza vaccine. Due on Oc due Goal Vitamin B12. Due on 024 due Goal CBC. Due on due Goal Tobacco Use Screening. Due o n due Goal Unhealthy drug use screening due Goal Tobacco Use Cessation Counse ling. Due on due Goal Vitamin D. Due on 4 due Goal Obtain Height, Weight, and B CT. Due on due Goal Tobacco screening. Due on Ap due Goal Diabetes screening. Due on N due Goal Drug Abuse Screening Test (D AST). Due on due Goal Generalized Anxi ety Disorder - 7 (DEISI-7). Due on due Goal Lipid panel. Due on due Goal Hepatitis C Screening due Goal Drug Abuse Scree catracho Test (DAST-10). Due on due Goal CMP. Due on due Goal Vitamin B12. Due on due Goal Influenza vaccine. Due on due Goal Depression screening. Due on due Goal Follow up Plan f or abnormal BMI (Less than 18.5, greater than 25). Due on due Goal HIV screen due Goal Lipid panel. Due on 025 due Goal Vitamin B12. Due on due Goal Diabetes screening. Due on due Goal Vitamin D. Due on due Goal Hepatitis C Screening due Goal Generalized Anxi ety Disorder - 7 (DEISI-7). Due on due Goal CMP. Due on due Goal Obtain Height, Weight, and B CT. Due on due Goal Depression screening. Due on due Goal Influenza vaccine. Due on due Goal HIV screen due Goal Tobacco screening. Due on due Goal Unhealthy drug use screening due Goal Drug Abuse Scree catracho Test (DAST-10). Due on due Goal Tobacco Use Cessation Counse ling. Due on due Goal Drug Abuse Screening Test (D AST). Due on due Goal Tobacco Use Screening. Due o n due Goal Follow up Plan f or abnormal BMI (Less than 18.5, greater than 25). Due on due Goal CBC. Due on due Goal Lifestyle education regardin g diet completed Goal Drug Abuse Screening Test (D AST). Due on due Goal Unhealthy drug use screening due Goal Influenza vaccine. Due on due Goal Lipid panel. Due on 029 due Goal Diabetes screening. Due on N due Goal CBC. Due on due Goal Follow up Plan f or abnormal BMI (Less than 18.5, greater than 25). Due on due Goal Vitamin B12. Due on due Goal Obtain Height, Weight, and B CT. Due on due Goal CMP. Due on due Goal Vitamin D. Due on due Goal Drug Abuse Scree catracho Test (DAST-10). Due on due Goal Tobacco Use Screening. Due o n due Goal HIV screen due Goal Generalized Anxi ety Disorder - 7 (DEISI-7). Due on due Goal Hepatitis C Screening due Goal Depression screening. Due on due Goal Lifestyle education regardin g diet completed Goal CMP. Due on due Goal Influenza vaccine. Due on due Goal CBC. Due on due Goal Lipid panel. Due on 029 due Goal Diabetes screening. Due on N due Goal Vitamin D. Due on due Goal Tobacco Use Screening. Due o n due Goal Generalized Anxi ety Disorder - 7 (DEISI-7). Due on due Goal Tobacco Use Cessation Counse ling. Due on due Goal HIV screen due Goal Vitamin B12. Due on 024 due Goal Drug Abuse Scree catracho Test (DAST-10). Due on due Goal Depression screening. Due on due Goal Drug Abuse Screening Test (D AST). Due on due Goal Hepatitis C Screening due Goal Follow up Plan f or abnormal BMI (Less than 18.5, greater than 25). Due on due Goal Unhealthy drug use screening due Goal Obtain Height, Weight, and B CT. Due on due Goal Obtain Height, Weight, and B CT. Due on due Goal Unhealthy drug use screening due Goal CMP. Due on due Goal Follow up Plan f or abnormal BMI (Less than 18.5, greater than 25). Due on due Goal Lipid panel. Due on due Goal Drug Abuse Scree catracho Test (DAST-10). Due on due Goal Influenza vaccine. Due on Oc due Goal Drug Abuse Screening Test (D AST). Due on due Goal Tobacco Use Screening. Due o n due Goal Vitamin D. Due on due Goal CBC. Due on due Goal Hepatitis C Screening due Goal HIV screen due Goal Vitamin B12. Due on due Goal Depression screening. Due on due Goal Generalized Anxi ety Disorder - 7 (DEISI-7). Due on due Goal Diabetes screening. Due on N due Goal Lifestyle education regardin g diet completed Goal Hepatitis C Screening due Goal CMP. Due on due Goal Diabetes screening. Due on due Goal Vitamin B12. Due on due Goal Tobacco Use Cessation Counse ling. Due on due Goal HIV screen due Goal Unhealthy drug use screening . Due on due Goal CBC. Due on due Goal Follow up Plan f or abnormal BMI (Less than 18.5, greater than 25). Due on due Goal Lipid panel. Due on due Goal Obtain Height, Weight, and B CT. Due on due Goal Depression screening. Due on due Goal Vitamin D. Due on due Goal Drug Abuse Screening Test (D AST). Due on due Goal Tobacco Use Screening. Due o n due Goal Drug Abuse Scree catracho Test (DAST-10). Due on due Goal Influenza vaccine. Due on Oc due Goal Generalized Anxi ety Disorder - 7 (DEISI-7). Due on due Goal Lifestyle education regardin g diet completed Goal Diabetes screening. Due on F due Goal Lipid panel. Due on 028 due Goal Drug Abuse Scree catracho Test (DAST-10). Due on due Goal Vitamin B12. Due on 024 due Goal HIV screen due Goal Influenza vaccine. Due on due Goal Hepatitis C Screening due Goal Depression screening. Due on due Goal Vitamin D. Due on due Goal CBC. Due on due Goal Tobacco Use Cessation Counse ling. Due on due Goal CMP. Due on due Goal Follow up Plan f or abnormal BMI (Less than 18.5, greater than 25). Due on due Goal Generalized Anxi ety Disorder - 7 (DEISI-7). Due on due Goal Tobacco Use Screening. Due o n due Goal Obtain Height, Weight, and B CT. Due on due Goal Unhealthy drug use screening due Goal Drug Abuse Screening Test (D AST). Due on due Goal Lifestyle education regardin g diet completed Goal Drug Abuse Screening Test (D AST). Due on due Goal Follow up Plan f or abnormal BMI (Less than 18.5, greater than 25). Due on due Goal HIV screen due Goal Generalized Anxi ety Disorder - 7 (DEISI-7). Due on due Goal Unhealthy drug use screening due Goal Tobacco Use Screening. Due o n due Goal Drug Abuse Scree catracho Test (DAST-10). Due on due Goal Diabetes screening. Due on F due Goal CMP. Due on due Goal Tobacco Use Cessation Counse ling. Due on due Goal Vitamin B12. Due on due Goal CBC. Due on due Goal Hepatitis C Screening due Goal Influenza vaccine. Due on Oc due Goal Obtain Height, Weight, and B CT. Due on due Goal Vitamin D. Due on due Goal Lipid panel. Due on 028 due Goal Depression screening. Due on due Goal Tobacco Use Cessation Counse ling. Due on due Goal CBC. Due on due Goal Depression screening. Due on due Goal Generalized Anxi ety Disorder - 7 (DEISI-7). Due on due Goal Lipid panel. Due on 028 due Goal HIV screen due Goal Obtain Height, Weight, and B CT. Due on due Goal Vitamin D. Due on due Goal Unhealthy drug use screening due Goal Diabetes screening. Due on due Goal Vitamin B12. Due on 024 due Goal Drug Abuse Screening Test (D AST). Due on due Goal Hepatitis C Screening due Goal CMP. Due on due Goal Influenza vaccine. Due on Oc due Goal Drug Abuse Scree catracho Test (DAST-10). Due on due Goal Tobacco Use Screening. Due o n due Goal Lifestyle education regardin g diet completed Goal CMP. Due on due Goal Vitamin D. Due on due Goal Obtain Height, Weight, and B CT. Due on due Goal Tobacco Use Cessation Counse ling. Due on due Goal Hepatitis C Screening. Due o n due Goal Vitamin B12. Due on 023 due Goal Drug Abuse Screening Test (D AST). Due on due Goal CBC. Due on due Goal Follow up Plan f or abnormal BMI (Less than 18.5, greater than 25). Due on due Goal Diabetes screening. Due on due Goal HIV screen due Goal Lipid panel. Due on 023 due Goal Drug Abuse Scree catracho Test (DAST-10). Due on due Goal Influenza vaccine. Due on due Goal Generalized Anxi ety Disorder - 7 (DEISI-7). Due on due Goal Depression screening. Due on due Goal Tobacco Use Screening. Due o n due Goal Unhealthy drug use screening due Goal Tobacco cessation counseling completed Goal Lifestyle education regardin g diet completed Goal Unhealthy drug use screening due Goal HIV screen due Goal CMP. Due on due Goal CBC. Due on due Goal Follow up Plan f or abnormal BMI (Less than 18.5, greater than 25). Due on due Goal Vitamin D. Due on due Goal Obtain Height, Weight, and B CT. Due on due Goal Diabetes screening. Due on due Goal Influenza vaccine. Due on due Goal Drug Abuse Screening Test (D AST). Due on due Goal Generalized Anxi ety Disorder - 7 (DEISI-7). Due on due Goal Depression screening. Due on due Goal Vitamin B12. Due on 023 due Goal Lipid panel. Due on 023 due Goal Tobacco Use Cessation Counse ling. Due on due Goal Hepatitis C Screening. Due o n due Goal Tobacco Use Screening. Due o n due Goal Drug Abuse Scree catracho Test (DAST-10). Due on due Goal Dietary management education , guidance, and counseling completed Goal Tobacco cessation counseling completed Goal Tobacco Use Cessation Counse ling. Due on due Goal Drug Abuse Scree catracho Test (DAST-10). Due on due Goal Vitamin D. Due on due Goal Diabetes screening. Due on due Goal Obtain Height, Weight, and B CT. Due on due Goal Hepatitis C Screening. Due o n due Goal CMP. Due on due Goal Follow up Plan f or abnormal BMI (Less than 18.5, greater than 25). Due on due Goal Tobacco Use Screening. Due o n due Goal Vitamin B12. Due on due Goal CBC. Due on due Goal Drug Abuse Screening Test (D AST). Due on due Goal HIV screen. Due on due Goal Lipid panel. Due on due Goal Depression screening. Due on due Goal Generalized Anxi ety Disorder - 7 (DEISI-7). Due on due Goal Influenza vaccine. Due on due Goal Generalized Anxi ety Disorder - 7 (DEISI-7). Due on due Goal HIV screen. Due on due Goal Depression screening. Due on due Goal Drug Abuse Screening Test (D AST). Due on due Goal Influenza vaccine. Due on due Goal Lipid panel. Due on due Goal Lipid panel. Due on due Goal Generalized Anxi ety Disorder - 7 (DEISI-7). Due on due Goal Depression screening. Due on due Goal HIV screen. Due on due Goal Influenza vaccine. Due on due Goal Drug Abuse Screening Test (D AST). Due on due Goal Influenza vaccine. Due on due Goal Generalized Anxi ety Disorder - 7 (DEISI-7). Due on due Goal HIV screen. Due on due Goal Lipid panel. Due on due Goal Depression screening. Due on due Goal Drug Abuse Screening Test (D AST). Due on due Goal Drug Abuse Screening Test (D AST). Due on due Goal Generalized Anxi ety Disorder - 7 (DEISI-7). Due on due Goal Depression screening. Due on due Goal Influenza vaccine. Due on due Goal HIV screen. Due on due Goal Lipid panel. Due on due Goal HIV screen. Due on due Goal Influenza vaccine. Due on due Goal Depression screening. Due on due Goal Generalized Anxi ety Disorder - 7 (DEISI-7). Due on due Goal Drug Abuse Screening Test (D AST). Due on due Goal Lipid panel. Due on due Referral Ordered: Referrals: Gastroenterology. Evaluate and treat. Diagnostic testing Appointment date/timeframe: 12/29/2023 ordered Referral Ordered: US EXAM, ABDOM, COMPLETE Right abdomen Appointment date/timeframe: 11/23/2023 ordered Referral Ordered: MRI BRAIN W/O & W/DYE Bilateral brain Appointment date/timeframe: 10/12/2023 ordered Referral Referred To: ENT [facility] Ordered: Referrals: Otolaryngology. ENT [facility]. Location: [place]. Evaluate and treat Appointment date/timeframe: 07/07/2023 ordered Referral Referred To: [facility] Ordered: Referrals: Ophthalmology. [facility]. Location: [place]. Evaluate and treat Appointment date/timeframe: 07/05/2023 ordered Referral Ordered: Vitamin b12 injection ordered History Of Present Illness Encounter Date Complaint History Of Prese nt Illness headaches Huey is here to day for headaches. He was given rizitriptan from the ENT a while back and states that it does help. He reports having them at least once monthly.Today he reports sinus congestion since October, and feels it is worse in the am. So much, that he gags in the mornings and sometimes has to throw up. He denies cough, feverHis throat is red like a strawberry. Strep testing was surprisingly negative here in office.Lt ear otitis media. [place] recently [place] in [place] he has not quite been the same since.Anxiety has been controlled on escitalopramLeft portion of face below eye sometimes has a sharp shooting pain after cold air, chewing or talking. He had facial trama last year after falling and passing out. I offered to change his citalopram to cymbalta to see if we could get better pain control while maintaining the anxiety. He declined. He says he will f/u with his surgeon if need be, or come back if he changes his mind.Huey also has a hematoma under the nail of his great left toe. He denies accident or injury. Just noticed it there one day 2 weeks ago. Depression screening Depression screening completed 12/17/24. Pt scored 0, provider aware. -SANTHOSH SCHMIDT Prapare Prapare complete d 12/17/24. -SANTHOSH SCHMIDT travel consult Ranjeet is here today to consult on needs for his upcoming travels to [facility].As per reviewed at the CDC- it is recommended to have all routine vaccines, tdap, influenza, covid, hep A and B, and in addition, typhoid vaccine at least 2 weeks prior to travel.It is also recommended to have malaria prphylaxis treatment 1-2 days prior to travel, 2 weeks during travel and an additional 4 weeks upon return. Other guidelines and recommendation for travels were printed from the CDC and given to the patient, as well as information for a vaccine clinic in [place] to inquire about cost for typhoid vaccine.I have also sent a ciprofoxacin in case he would have traveler's diarrhea while abroad as well as zofran. He has been instructed of the use and instructions for these medications and has verbalized understanding. flu vaccine Huey is here to day for flu vaccineconsent form has been completed and placed in the flu binder f/u on Meds Huey is a 43 yo male here today for f/u on anxiety and depression.He was started on escitalopram 3 weeks ago to help w/ his anxiousness- but today reports he did not take it. Started feeling better.He has been on welbutrin previously to stop smoking. He later stopped the medication on his own, felt he did not need it, but at last visit 10.17.23 reported he felt that may had been working more than he thuought and restarted it.He reported at that time it did not seem to be helping much so we switched to escitalopram. He continues to be tobacco free- however is now using sahil packs- (nicotine packs)Today he states he is still having some anxiety-thinks it is due to this time of year being difficultHe is still having diarrhea 2 x a daywater, mucousyhemmhoroids external bleedingno black tary type stoolgaining weightat times some RUQ abdominal discomfortno urgencyTried immodium, but did not help at all.nausea at times, no vomitingGERD- taking medication -helps- worse if medication is missedfeels like food gets stucktrying to change his diet to eat less grease. f/u MRI Huey is here to day for f/u on recent MRIResults: No intracranial abnormalityStates that he feels this has all been some anxietyhe restarted his welbutrin and says he has felt a little betterI am stopping welbutrin and starting escitalopram 10 mg. He will f/u in 3 weeksStates has had diarrhea - watery stools daily x 2 weeksno nausea/vomitingNo changeno abd painHolter report from cardiology had 1 run of svtsuggested to start a beta blockerStress and Echo scheduled for the will f/u with Cards thenwe will wait to start betablocker, treat anxiety and see if symptoms improve. f/u labs Huey is here to day for f/u on recent labs.Overall- okCholesterol, LDL, TRIGS,HDL wnlALT slightly elevated-reports heart burn has become worse- using famotidine 20 mg bid every dayA1c 5.4Vit d slightly low at 25TSH, B12 okHe had labs collected as he reports dizziness/tunnel vision after having a syncopal episode (06/24/23) that resulted in a Left displaced zygomatic, maxillary, and orbital fracture. 07.13.23 he had an open reduction internal fixation of zygomaticomaxillary complex fracture, canthoplasty, and repair of zygomatic arch (at ). He did well with the surgery. States that he continues to feel pressure and numbness on left side of face.Huey reports his dizziness especially while driving seems to be more frequent- enough that he has to stop driving. This has happened once or twice, after driving a long distance. He states this does not occur when he is driving a short distance. He has difficulty discribing the symptoms- as like a tunnel vision, or maybe a dizziness. He reports having nausea just prior to the symptoms and sometimes vomits. He has had hx of headaches (3-4 weekly) and at least 1 migraine monthly that is debilitating -has to lay down in a dark room, photosensitivity and and vomiting. He reports the vomiting makes him feel better.He has been given zytriptan but has not had to use it as of yet.Dizziness- has some motion sicknessWhile syncope is not usually primarily a neurological finding, it would be beneficial to have a MRI to r/o neurological complications in relation to his syncope, dizziness, continued headaches/migraines.07/05/23-had complete eye exam dx w/ hyperopia OUwearing corrective lenses todayhe reports that he is adjusting to the glassesSmoking cessation-stopped 1 month agowas taking welbutrion for about 2 weeks, but stoppeddidn't feel like it helped muchHe does note feeling more irritable with people, increased anxietyHe feels it is in realtion to all that has happened with his syncope and head trauma.He is scheduled at to see Cardiology for further evaluation of his syncope. His appt is 09.14.23 FASTING LABS RANJEET IS HERE THIS MORNING FOR FASTING LABS. SUCCESSFULLY COLLECTED 4 TUBES. PT TOLERATED WELL. PT IS SCHEDULED TO RTC IN 2 WEEKS TO FOLLOW UP ON LAB RESULTS. ER f/u Huey is here to day for ER f/u on 06.24.23 for acute gastroenteritis, syncope and minimally displaced left zygoma fracture.CT of facial bones demonstrated left maxillary zygomatic and orbital fractures. 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 He states that he was pretty sick the day after his fall w/ body aches, chills, fever and vomiting. He however did test neg for covid, flu a/b.Huey appears to have Marfan syndrome, but has not ever been officially diagnosed with this. He has significant family hx of cardiac disease on his father's side that has caused multiple male members of his family to pass from [place]. Due to his syncopal episode, that may or may not be related to his recent illness/dehydration, I feel it would be valuable to have a cardiac work up complete with stress test and echo. He agrees, but wishes to wait for this testing at this time r/t his ongoing facial fractures and upcoming visit with ent and ophthalmology. He did have a chest xray at his [facility]. It did show emphysematous changes umair. Today he states he does feel somewhat better, but is in need of referral to ENT at .He states that he is possibly having some vision changes he is not sure if it is from the accident, or just routine aging.It was recommended to have a complete eye exam and he states he will call [facility] for an appointment.ready to stop smoking- has had several attempts in the past, but state he is mentally ready to quit now.Buproprion sent to pharmacy, and adjunct therapy w/ nicotine patches recommended. He verbalized understanding.Flu vaccine given todayother incidental finding of lipoma on base of left neckcyst like structure in left sinus passage Skin Rash Ranjeet Arzate is here today due to a skin rash that started last week on his arms, legs, back and arm pits. The rash was scattered and had pus. Today the areas on his arm have cleared up but there are new area on his legs and back. Pt denies fever but did feel fatigue. 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 shoulder pain Onset: 1 week ag o. Severity level is 4. It occurs constantly and is worsening. Location: shoulder. The pain is aching and sharp. Context: there is no injury. The pain is aggravated by bending, lifting and movement. Associated symptoms include crepitus, difficulty initiating sleep, joint tenderness and popping. Pertinent negatives include bruising, decreased mobility, joint instability, locking, nocturnal awakening, nocturnal pain, numbness, spasms, swelling, tingling in the arms, tingling in the legs and weakness. Hand Dominance: right. Wellness exam Huey is here to day for his wellness exam. He voices no complaints at this time. He reports he is feeling better than he did at this time last year.He continues to smoke 1ppdHe did not start the welbutrion to stop smokingHe is not interested in stopping currentlyHe voices no other concerns todaycompliant with other medicationswill increase rosuvistatin based on previous labs and family hxFlu and covid vaccines today Ear pain Onset: 4 days ag o. Severity level is mild-moderate. Duration: 4 Days. The states the ear pain is in the right ear. It occurs constantly. The problem is worse. Symptom is aggravated by lying down. Denies relieving factors. Associated symptoms include congestion (nasal), ear popping, ear pressure, fullness in ears and malaise. Pertinent negatives include bleeding from ear(s), cough, dizziness, drainage (clear), drainage (purulent), fever, irritability, nausea and vomiting. Anemia Additional infor mation: B12 anemia- Labs reviewed w/ pt can start monthly b12 injections as well as otc b12 tab daily. B12 injection and La bs to recheck B12 level b12 injection #5 of 6David states that he feeling some what better. 12 INJECTION Pt receiving B12 injection #4/6 today. B12 injection #5 and labs at next weeks visit to recheck B12 level. B12 injection Vitamin B12 inje ction #3 of 6, LOT #1208, EXP February 07 given in right deltoid, tolerated well. Instructions Date Instruction Additional Infor mation Try to protect your face from direct cold air. Related to Trigeminal neuralgia Take medications as prescribed. Avoid known triggers (such as: caffeine, chocolate, irregular sleep cycles, increased stress, alcohol, fragrances, bright/strobing lights). If unsure of triggers, keep a daily journal to help recognize migraine patterns. Counseled that overuse of analgesics (especially OTC analgesics with caffeine), can cause rebound migraine headaches. Verbalizes an understanding of all. 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 Discussed lifestyle modifications including but not limited to elevating the head of the bed, limiting fatty, greasy, spicy food intake. Avoid heavy meals and caffeine intake within 2 hours of bedtime. If applicable, reduce/discontinue tobacco use and/or alcohol use, as both can make reflux symptoms worse. Related to GERD disease w/ esophagitis, w/o bleeding Take all antibiotics until complete. May take with food to ease stomach irritation. If you experience frequent yeast infections, you may consider taking an OTC probiotic like culturell or align while taking antibiotics. Related to Acute serous otitis media, left ear Discussed stress red uction techniques. Take medications as prescribed. Limit caffeine and nicotine. Try to follow a set sleep schedule. Get daily moderate exercise if able to tolerate. Related to Anxiety Giving encouragement to exercise Related to Body mass index [BMI] 26.0-26.9, adult Lifestyle education regarding di et Related to Body mass index [BMI] 26.0-26.9, adult routine vaccines are current In addition consider vaccine for typhoidProphylatic medication for diarrhea and milaria given.Adhere to all travel precautions as per the CDC page for international travel.RTC here as needed once returned. Related to Encounter for health risk and safety counseling for (international) travel Lifestyle education regarding di et Related to Body mass index [BMI] 27.0-27.9, adult Giving encouragement to exercise Related to Body mass index [BMI] 27.0-27.9, adult Lifestyle education regarding di et Related to Body mass index [BMI] 27.0-27.9, adult Discussed stress red uction techniques. Take medications as prescribed. Limit caffeine and nicotine. Try to follow a set sleep schedule. Get daily moderate exercise if able to tolerate. Related to Anxiety Physical activity as tolerated. Try to engage in some form of moderate physical activity for 30 minutes most days of the week. May modify activity as needed to reduce discomfort. Try to achieve/maintain a healthy body weight to reduce strain on musculoskeletal system. Verbalizes an understanding. Related to Body mass index [BMI] 26.0-26.9, adult Drink plenty of flui ds. May use OTC immodium as packing instructionsIF symptoms continue, RTC for further evaluation Related to Diarrhea, unspecified Counseled patients o n medications for reflux. Discussed lifestyle modifications including but not limited to elevating the head of the bed, limiting fatty, greasy, spicy food intake. Avoid heavy meals and caffeine intake within 2 hours of bedtime. If applicable, reduce/discontinue tobacco use and/or alcohol use, as both can make reflux symptoms worse. Related to GERD disease w/ esophagitis, w/o bleeding Giving encouragement to exercise Related to Body mass index [BMI] 26.0-26.9, adult Lifestyle education regarding di et Related to Body mass index [BMI] 26.0-26.9, adult Low fat, low cholest edyta diet. Avoid fatty, fried, and greasy foods. Physical activity as tolerated. Counseled on risks of associated comorbidities, such as heart disease and stroke. Encouraged avoidance of tobacco products. Related to Hyperlipidemia Sit down before you fall downSit prior to walking to get your balance Related to Dizziness Counseled patients o n medications for reflux. Discussed lifestyle modifications including but not limited to elevating the head of the bed, limiting fatty, greasy, spicy food intake. Avoid heavy meals and caffeine intake within 2 hours of bedtime. If applicable, reduce/discontinue tobacco use and/or alcohol use, as both can make reflux symptoms worse. Related to GERD disease w/ esophagitis, w/o bleeding Keep appt w/ Cardiol ogy on 09.14.23MRI of Brain orderedIf you have another syncopal episode go to the ER Related to Syncope and collapse Take medications as prescribed. Avoid known triggers (such as: caffeine, chocolate, irregular sleep cycles, increased stress, alcohol, fragrances, bright/strobing lights). If unsure of triggers, keep a daily journal to help recognize migraine patterns. Counseled that overuse of analgesics (especially OTC analgesics with caffeine), can cause rebound migraine headaches. Verbalizes an understanding of all. 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 Avoid fatty, fried, and greasy foods. Physical activity as tolerated. Counseled on risks of associated comorbidities, such as heart disease and stroke. Encouraged avoidance of tobacco products. Related to Hyperlipidemia It is recommended to stop smoking/vaping to increase overall health and decrease risk of cardiovascular disease. If you wish to stop smoking/vaping, there is a free online [place] from smoking course offered through our local health department. You may call [phone] for more information.Use nicotine patches as instructed and bupropion as instructed.Do not stop buproprion abruptly. Monitor your symptoms around the 2nd week of medication. If you have suicidal or homicidal ideation, and feel you might act on them, go to the ER. Call me if this occurs. RTC 1 month for f/u Related to Nicotine dependence, cigarettes, uncomplicated If you have another syncopal event, got to the ER.Consider cardiac testing in the future to r/u cardiac defect as contributor to syncopal episode. Related to Syncope and collapse Giving encouragement to exercise Related to Body mass index [BMI] 24.0-24.9, adult Lifestyle education regarding di et Related to Body mass index [BMI] 24.0-24.9, adult Physical activity as tolerated. Try to engage in some form of moderate physical activity for 30 minutes most days of the week. May modify activity as needed to reduce discomfort. Try to achieve/maintain a healthy body weight to reduce strain on musculoskeletal system. Verbalizes an understanding. Related to Body mass index [BMI] 25.0-25.9, adult Patient instructed o n appropriate use of medications prescribed for shoulder pain. Discussed conservative measures such as heat, ice, gentle strength stretching, and muscle strengthening. Avoid heavy lifting, pulling, or tugging or overhead use of right arm. Contact the clinic if any worsening or new symptoms related to right shoulder pain that may occur or if you would like to have an injection to your shoulder. Related to Bursitis of right shoulder Apply Triamcinolone to affected r ea two times daily to help with itching. Use cool compresses to area, wear loose fitting cotton clothing. My take aveeno bath. Do not use any soap with dyes or perfumes in it. IF area appears to become infected, hot to touch, purulent drainage, you may use mupirocin bid to affected areas as well. Keep affected areas clean and dry. Monitor symptoms for triggering factors or worsening of symptoms. Related to Rash Giving encouragement to exercise Related to Body mass index [BMI] 25.0-25.9, adult Lifestyle education regarding di et Related to Body mass index [BMI] 25.0-25.9, adult It is recommended to stop smoking to increase overall health and decrease risk of cardiovascular disease. If you wish to stop smoking, there is a free online [place] from smoking course offered through our local health department. You may call [phone] for more information. Related to Nicotine dependence, cigarettes, uncomplicated FLu Vaccine today, C ovid 19 booster -Moderna You may have some mild discomfort, chills, or a sore arm in the next 24 hrs. If needed you may take tylenol per packing instructions Related to Encounter for immunization Physical activity as tolerated. Try to engage in some form of moderate physical activity for 30 minutes most days of the week. May modify activity as needed to reduce discomfort. Try to achieve/maintain a healthy body weight to reduce strain on musculoskeletal system. Verbalizes an understanding. Related to Body mass index [BMI] 25.0-25.9, adult B-12 injection given in office today. Eat foods rich in B-12. Additional oral B12 replacement if indicated. Related to Vitamin B12 deficiency anemia, unspecified Low fat, low cholest edyta diet. Avoid fatty, fried, and greasy foods. Physical activity as tolerated. Counseled on risks of associated comorbidities, such as heart disease and stroke. Encouraged avoidance of tobacco products.Rosuvistatin 20 mg daily Related to Hyperlipidemia Dietary management e ducation, guidance, and counseling Related to Body mass index [BMI] 25.0-25.9, adult Giving encouragement to exercise Related to Body mass index [BMI] 25.0-25.9, adult Take all antibiotics until complete. May take with food to ease stomach irritation. If you experience frequent yeast infections, you may consider taking an OTC probiotic while taking antibiotics, or eating yogurt with active cultures. Related to Acute serous otitis media, left ear Drink plenty of flui ds. Take rest. Monitor oxygen saturation and heart rate. Go to the ER if resting oxygen saturation stays below 88%, or if any AMS, worsening dyspnea, chest pain, or other concerning symptoms. Verbalizes an understanding of all.May take OTC loratidine 10 mg dailyFlonase 1-2 sprays as instructedLoboupaisha per package instruction for fever or chills Related to COVID-19 RTC 1 month for b12 injectionMay take otc b12 supplement Related to Vitamin B12 deficiency anemia, unspecified Assessments Type Assessment Date No Information
--- OUTSIDE RECORDS SUMMARY | 2025-08-11 10:49 | XMS_ITS | Encounter Summary ---
Author Organization Healthcare Address [address] [id number] Care Team Providers Care Sales/Marketing Name Role Phone Ximena Swenson ALFONZO Primary Care Provider [phone] Encounter Details Date Type Department Care Team [...] documented as of this encounter Care Teams Sales/Marketing Relationship Specialty Start Date End Date Ximena Swenson APRN [address] [place] [address] PCP - General 07/07/23 documented as of this encounter
--- OUTSIDE RECORDS SUMMARY | 2025-08-11 10:49 | XMS_ITS | Encounter Summary ---
Author Organization [facility] Address [address] [place] [address] Care Team Providers Care Commercial Green Building Architect Name Role Phone Ximena Swenson APRN Primary Care Provider + Encounter Details Date Type Department Care Team ([facility] st Contact Info) Description 06/27/2023 Community [facility] [address] [place] [address] Ximena Swenson APRN [address] [place] [address] (Fax) Closed fracture of maxillary sinus with [...] documented as of this encounter Care Teams Commercial Green Building Architect Relationship Specialty Start Date End Date Ximena Swenson APRN [address] [place] [address] (Fax) PCP - General 07/07/23 documented as of this encounter
--- OUTSIDE RECORDS SUMMARY | 2025-08-11 10:49 | XMS_ITS | Clinical Summary ---
Author Organization [facility] Address [address] [place] [address] Care Team Providers Care Warehouse Man Name Role Phone Ximena Swenson ALFONZO Primary Care Provider [phone] Allergies No known active allergies Medications loratadine [...] (abdominal cramping). 20 tablet 06/20/2025 5 Active Problems Problem Noted Date Diagnosed Date Injury of face 07/07/2023 Encounters Date Type Department Care Team Description 06/20/2025 3:57 PM EDT - 06/20/2025 8:05 PM EDT Emergency [facility] Emergency Department [address] [place] [address] Chris Chiu MD Generalized abdominal pain (Primary [...] Date Last Done Comments [facility]-Depression Screening 1981 [facility]-/Child/Adol SDOH Screenings 1981 [facility]-Varicella Vaccines (1 of 2 - 13+ 2-dose series) 1994 [facility]- SDOH Screenings 1999 [facility]-Adult SDOH Screenings 1999 [facility]-DTaP,Tdap,and Td Vaccines (1 - Tdap) 2000 [facility]-Hepatitis B Vaccines (1 of 3 - 19+ 3-dose series) 2000 HPV Vaccines (1 - 3-dose SCDM series) 2008 INC-[id number]-40 Vaccine ( - season) 2025 10/24/2022, 05/12/2021, 04/21/2021 [facility]-Influenza Vaccine [...] this topic Medical Devices Implanted Type Area Classified Ad Taker Device Identifier Shelf Expiration Date Model / Serial / Lot Plate Matric Orbital Rim Plate 12 Holes 0.5mm - [id number] Implanted:Qty: 1 on 07/13/2023 by Tawanda Lucero MD at [facility] Left: Face Fillm [id number] 07/13/2024503.343 / / Plate Matric Orbital Rim Plate 12 Holes 0.7mm - [id number] Implanted:Qty: 1 on 07/13/2023 by Tawanda Lucero MD at [facility] Left: Face Fillm [id number] 503.373 / / Plate Matric Oblique L-Pl 3x4 Holes-Left/0.7 mm - [id number] Implanted:Qty: 1 on 07/13/2023 by Tawanda Lucero MD at [facility] Left: Face Fillm [id number] 503.355 / / Screw Matrix Self-Drill 5mm - [id number] Implanted:Qty: 13 on 07/13/2023 by Tawanda Lucero MD at [facility] Left: Face Fillm [id number] 225 .01 / / Screw Matrix Emergency Screw 5mm - [id number] Implanted:Qty: 1 on 07/13/2023 by Tawanda Lucero MD at [facility] Left: Face Fillm [id number] 235 .01 / / Explanted Type Area Classified Ad Taker Device Identifier Shelf Expiration Date Model / Serial / Lot Screw Matrix Emergency Screw 5mm - [id number] Explanted:Qty: 1 on 07/13/2023 at [facility] Left: Face Fillm [id number] 235 .01 / / Procedures Procedure Name [...] Detected Not Detected 06/20/2025 7:24 PM EDT [facility] Influenza A Virus PCR Result Not Detected Not Detected 06/20/2025 7:24 PM EDT [facility] Influenza B Virus PCR Result Not Detected Not Detected 06/20/2025 7:24 PM EDT [facility] Respiratory Syncytial Virus (RSV) PCR Result Not Detected Not Detected 06/20/2025 7:24 PM EDT [facility] Swab Nasopharyngeal structure / Unknown Non-blood Collection / Unknown 06/20/2025 6:22 PM EDT 06/20/2025 6:36 PM EDT Narrative [facility] - 06/20/2025 7:24 PM [...] MICROBIOLOGY - GENERAL ORDER SANDRA Final Result [facility] [address] [place] [address] * CT Abdomen Pelvis w IV Contrast [...] on 06/20/2025 6:49 PM Chris Chiu MD [facility] [place] PROCEDURES Final Result * Comprehensive GI Panel by PCR (06/20/2025 5:18 PM EDT) Campylobacter PCR Result Not Detected Not Detected 06/20/2025 9:37 PM EDT [facility] Plesiomonas shigelloides PCR Result Not Detected Not Detected 06/20/2025 9:37 PM EDT [facility] Salmonella PCR Result Not Detected Not Detected 06/20/2025 9:37 PM EDT [facility] Vibrio species PCR Result Not Detected Not Detected 06/20/2025 9:37 PM EDT [facility] Vibrio cholerae PCR Result Not Detected Not Detected 06/20/2025 9:37 PM EDT [facility] Yersinia enterocolitica PCR Result Not Detected Not Detected 06/20/2025 9:37 PM EDT [facility] Enteroaggregative E. coli (EAEC) PCR Result Not Detected Not Detected 06/20/2025 9:37 PM EDT [facility] Enteropathogenic E. coli (EPEC) PCR Result Not Detected Not Detected 06/20/2025 9:37 PM EDT [facility] Enterotoxigenic E. coli (ETEC) lt/st PCR Result Not Detected Not Detected 06/20/2025 9:37 PM EDT [facility] Shiga-like Toxin-Producing E.coli (STEC) stx1/stx2 PCR Resu Not Detected Not Detected 06/20/2025 9:37 PM EDT [facility] E coli 0157 PCR Result Not Detected Not Detected 06/20/2025 9:37 PM EDT [facility] Shigella/Enteroinvas stanislav E. coli (EIEC) PCR Result Not Detected Not Detected 06/20/2025 9:37 PM EDT [facility] Cryptosporidium PCR Result Not Detected Not Detected 06/20/2025 9:37 PM EDT [facility] Cyclospora cayetanensis PCR Result Not Detected Not Detected 06/20/2025 9:37 PM EDT [facility] Entamoeba histolytica PCR Result Not Detected Not Detected 06/20/2025 9:37 PM EDT [facility] Giardia duodenalis (aka Giardia lamblia) PCR Result Not Detected Not Detected 06/20/2025 9:37 PM EDT [facility] Adenovirus F 40/41 PCR Result Not Detected Not Detected 06/20/2025 9:37 PM EDT [facility] Astrovirus PCR Result Not Detected Not Detected 06/20/2025 9:37 PM EDT [facility] Norovirus GI/GII PCR Result Not Detected Not Detected 06/20/2025 9:37 PM EDT [facility] Rotavirus A PCR Result Not Detected Not Detected 06/20/2025 9:37 PM EDT [facility] Sapovirus PCR Result Not Detected Not Detected 06/20/2025 9:37 PM EDT [facility] Stool Rectum structure / Unknown Non-blood Collection / Unknown 06/20/2025 5:18 PM EDT 06/20/2025 5:43 PM EDT Narrative [facility] - 06/20/2025 9:37 PM [...] difficile by PCR assay if clinically indicated. us Chrsi Chiu MD LAB MICROBIOLOGY - GENERAL ORDER SANDRA Final Result [facility] [address] [place] [address] * (ABNORMAL) Fecal Lactoferrin (06/20/2025 5:18 PM EDT) Fecal Lactoferrin Result Positive( A) Negative 06/21/2025 6:07 AM EDT [facility] Stool Rectum structure / Unknown Non-blood Collection / Unknown 06/20/2025 5:18 PM EDT 06/20/2025 5:43 PM EDT Narrative [facility] - 06/21/2025 6:07 AM EDT NOTE: If patient is a breastfed child, results may be falsely positive. us Chris Chiu MD LAB MICROBIOLOGY - GENERAL ORDER SANDRA Final Result Performing Organization Address City/[facility]/ZIP Co de Phone Number [facility] [address] [place] [address] * (ABNORMAL) Calprotectin, Stool (06/20/2025 5:18 PM EDT) CALPROTECTIN 2120(H) <=49 ug/g 06/25/2025 3:24 PM EDT [facility] ([place]) Stool Stool specimen / Unknown Non-blood Collection / Unknown 06/20/2025 5:18 PM EDT 06/20/2025 7:02 PM EDT Narrative [facility] ([place]) - 06/25/2025 3:24 PM EDT REFERENCE INTERVAL: Calprotectin, Fecal by Immunoassay Less than 50 ug/g........Normal 50-120 ug/g..............Borderline elevated, test should be re-evaluated in 4-6 weeks. 121 ug/g or greater......Elevated Performed By: [facility] [address] [place] [address] Mattress Filling Machine Tender: Jerman Elias MD, PhD CLIA Number: [id number] us Chris Chiu MD LAB BODY FLUIDS AND STOOLS ORDER SANDRA Final Result [facility] [address] [place] [address] * ED HIV 1/2 Antibody/Antigen Screen w/Reflex to HIV 1/2 Differentiation (06/20/2025 3:56 PM EDT) Pathologist [facility] HIV 1 & 2 Antibody/Antigen Screen Non Reactive Non Reactive 06/20/2025 4:53 PM EDT [facility] Comment:Screening for HIV 1 & 2 antibodies, and P24 antigen is NONREACTIVE. No confirmatory testing is required. Blood Venous blood specimen / Unknown Venipuncture / Unknown 06/20/2025 3:56 PM EDT 06/20/2025 4:13 PM EDT us Chris Chiu MD LAB BLOOD ORDERABLES Final Resul t [facility] [address] [place] [address] * Lactic acid, venous (06/20/2025 3:56 PM EDT) [facility] Lactate, Venous, Whole Blood 0.8 0.5 - 2.2 mmol/L LAB HEMATOLOGY METHOD 06/20/2025 4:09 PM EDT [facility] Blood Venous blood specimen / Unknown Venipuncture / Unknown 06/20/2025 3:56 PM EDT 06/20/2025 4:07 PM EDT us Chris Chiu MD LAB BLOOD ORDERABLES Final Resul t [facility] [address] [place] [address] * Hepatitis C Antibody - ED (06/20/2025 3:56 PM EDT) [facility] Hepatitis C Antibody Negative Negative 06/20/2025 4:53 PM EDT [facility] Blood Venous blood specimen / Unknown Venipuncture / Unknown 06/20/2025 3:56 PM EDT 06/20/2025 4:13 PM EDT us Chris Chiu MD LAB BLOOD ORDERABLES Final Resul t Performing Organization Address City/[facility]/ZIP Co de Phone Number [facility] [address] [place] [address] * (ABNORMAL) CBC w/diff (06/20/2025 3:56 PM EDT) [facility] WBC Count 9.11 3.70 - 10.30 10*3/uL LAB HEMATOLOGY METHOD 06/20/2025 4:09 PM EDT [facility] RBC Count 3.46(L) 4.60 - 6.10 10*6/uL LAB HEMATOLOGY METHOD 06/20/2025 4:09 PM EDT [facility] HGB 9.0(L) 13.7 - 17.5 g/dL LAB HEMATOLOGY METHOD 06/20/2025 4:09 PM EDT [facility] HCT 28.5(L) 40.0 - 51.0 % LAB HEMATOLOGY METHOD 06/20/2025 4:09 PM EDT [facility] Platelet Count 335 155 - 369 10*3/uL LAB HEMATOLOGY METHOD 06/20/2025 4:09 PM EDT [facility] MCV 82 79 - 98 fL LAB HEMATOLOGY METHOD 06/20/2025 4:09 PM EDT [facility] MCH 26.0 26.0 - 32.0 pg LAB HEMATOLOGY METHOD 06/20/2025 4:09 PM EDT [facility] MCHC 31.6 30.7 - 35.5 g/dL LAB HEMATOLOGY METHOD 06/20/2025 4:09 PM EDT [facility] RDW 13.8 11.5 - 14.5 % LAB HEMATOLOGY METHOD 06/20/2025 4:09 PM EDT [facility] MPV 9.1 8.8 - 12.5 fL LAB HEMATOLOGY METHOD 06/20/2025 4:09 PM EDT [facility] nRBC 0.0 <=0.0 per 100 WBCs LAB HEMATOLOGY METHOD 06/20/2025 4:09 PM EDT [facility] Differential Type Automated LAB HEMATOLOGY METHOD 06/20/2025 4:09 PM EDT [facility] Neutrophils % 76 % LAB HEMATOLOGY METHOD 06/20/2025 4:09 PM EDT [facility] Lymphocytes % 13 % LAB HEMATOLOGY METHOD 06/20/2025 4:09 PM EDT [facility] Monocytes % 6 % LAB HEMATOLOGY METHOD 06/20/2025 4:09 PM EDT [facility] Eosinophils % 4 % LAB HEMATOLOGY METHOD 06/20/2025 4:09 PM EDT [facility] Basophils % 0 % LAB HEMATOLOGY METHOD 06/20/2025 4:09 PM EDT [facility] Immature Granulocytes % 1 % LAB HEMATOLOGY METHOD 06/20/2025 4:09 PM EDT [facility] Neutrophils Absolute 6.94(H) 1.60 - 6.10 10*3/uL LAB HEMATOLOGY METHOD 06/20/2025 4:09 PM EDT [facility] Lymphocytes Absolute 1.20 1.20 - 3.90 10*3/uL LAB HEMATOLOGY METHOD 06/20/2025 4:09 PM EDT [facility] Monocytes Absolute 0.54 0.30 - 0.90 10*3/uL LAB HEMATOLOGY METHOD 06/20/2025 4:09 PM EDT [facility] Eosinophils Absolute 0.35 0.00 - 0.50 10*3/uL LAB HEMATOLOGY METHOD 06/20/2025 4:09 PM EDT [facility] Basophils Absolute 0.03 0.00 - 0.10 10*3/uL LAB HEMATOLOGY METHOD 06/20/2025 4:09 PM EDT [facility] Immature Granulocytes Absolute 0.05 0.00 - 0.06 10*3/uL LAB HEMATOLOGY METHOD 06/20/2025 4:09 PM EDT [facility] Blood Venous blood specimen / Unknown Venipuncture / Unknown 06/20/2025 3:56 PM EDT 06/20/2025 4:07 PM EDT Narrative [facility] - 06/20/2025 4:09 PM EDT Therapeutic decision making should be based on absolute values, rather than percentages. us Chris Chiu MD LAB BLOOD ORDERABLES Final Resul t Performing Organization Address City/[facility]/ZIP Co de Phone Number [facility] [address] [place] [address] * Lipase (06/20/2025 3:56 PM EDT) Lipase, Plasma 26 19 - 63 U/L 06/20/2025 4:28 PM EDT [facility] Blood Venous blood specimen / Unknown Venipuncture / Unknown 06/20/2025 3:56 PM EDT 06/20/2025 4:07 PM EDT us Chris Chiu MD LAB BLOOD ORDERABLES Final Resul t [facility] [address] [place] [address] * (ABNORMAL) CMP (06/20/2025 3:56 PM EDT) Glucose, Plasma 114(H) 74 - 99 mg/dL 06/20/2025 4:28 PM EDT [facility] BUN, Plasma 10 7 - 21 mg/dL 06/20/2025 4:28 PM EDT [facility] Creatinine, Plasma 0.92 0.70 - 1.20 mg/dL 06/20/2025 4:28 PM EDT [facility] BUN/Creatinine Ratio 11 06/20/2025 4:28 PM EDT [facility] Sodium, Plasma 136 136 - 145 mmol/L 06/20/2025 4:28 PM EDT [facility] Potassium, Plasma 3.6 3.6 - 4.9 mmol/L 06/20/2025 4:28 PM EDT [facility] Chloride, Plasma 101 97 - 107 mmol/L 06/20/2025 4:28 PM EDT [facility] CO2, Plasma 24 22 - 29 mmol/L 06/20/2025 4:28 PM EDT [facility] Anion Gap 11 6 - 16 mmol/L 06/20/2025 4:28 PM EDT [facility] Total Calcium, Plasma 8.6(L) 8.9 - 10.2 mg/dL 06/20/2025 4:28 PM EDT [facility] Total Protein 7.1 6.3 - 7.9 g/dL 06/20/2025 4:28 PM EDT [facility] Albumin, Plasma 3.8 3.5 - 5.2 g/dL 06/20/2025 4:28 PM EDT [facility] AST, Plasma 15 10 - 50 U/L 06/20/2025 4:28 PM EDT [facility] ALT, Plasma 11 10 - 50 U/L 06/20/2025 4:28 PM EDT [facility] Alkaline Phosphatase, Plasma 59 40 - 115 U/L 06/20/2025 4:28 PM EDT [facility] Total Bilirubin, Plasma 0.4 0.2 - 1.1 mg/dL 06/20/2025 4:28 PM EDT [facility] eGFRcr 105.2 mL/min/1.7 3m*2 06/20/2025 4:28 PM EDT [facility] Comment:Reported eGFRcr in m L/min/1.73m2 is based the CKD-EPI 2020 equation that does not use a race coefficient. Blood Venous blood specimen / Unknown Venipuncture / Unknown 06/20/2025 3:56 PM EDT 06/20/2025 4:07 PM EDT us Chris Chiu MD LAB BLOOD ORDERABLES Final Resul t [facility] [address] [place] [address] from Last 3 Months Insurance [employer] Care Teams Warehouse Man Relationship Specialty Start Date End Date Ximena Swenson APRN [address] [place] [address] PCP - General 07/07/23
[2025-08-11 11:11] LABS: Hematocrit 32.5 % (42.0-52.0); Hemoglobin 10.1 g/dL (14.1-18.0); Immature Granulocytes % 0.3 %; Mean Corpuscular HGB Conc 31.1 g/dL (31.8-35.4); Mean Corpuscular Hemoglobin 24.5 pg (27.0-31.2); Mean Corpuscular Volume 78.7 fl (80-94); Nucleated Red Blood Cells % 0 %; Platelet Count 316 K/mm3 (142-424); Red Blood Count 4.13 M/mm3 (4.60-6.20); Red Cell Distribution Width-SD 44.1 fL; White Blood Count 3.7 K/mm3 (4.8-10.8)
[2025-08-11 12:03] LABS: Alanine Aminotransferase 24 U/L (12-78); Albumin Level 4.9 g/dl (3.5-5.0); Albumin/Globulin Ratio 1.8 (1.1-1.8); Alkaline Phosphatase 72 U/L (38-126); Anion Gap 10.4 mEq/L (5-15); Aspartate Amino Transferase 31 U/L (17-59); Bilirubin,Total 0.5 mg/dl (0.2-1.3); Blood Urea Nitrogen 14 mg/dl (9-20); Calcium 9.5 mg/dl (8.4-10.2); Carbon Dioxide 25 mmol/L (22.0-30.0); Chloride 102 mmol/L (98-107); Creatinine,Serum 0.90 mg/dl (0.66-1.25); Estimated Glomerular Filt Rate 92 ml/min (>60); GFR (African American) 111 ML/MIN (>60); Globulin 2.8 g/dL (1.3-3.2); Glucose 99 mg/dl (74-100); Iron 31 ug/dL (49-181); Potassium 4.4 mmoL/L (3.5-5.1); Sodium 133 mmol/L (136-145); Total Protein,Serum 7.7 g/dl (6.3-8.2)
[2025-08-11 12:14] LABS: Total Iron Binding Capacity 466 ug/dL (261-462)
[2025-08-11 12:21] LABS: C-Reactive Protein < 0.3 mg/L (0-4)
[2025-08-11 12:39] LABS: Ferritin 6.57 ng/ml (17.9-464)
== END 2025-08-11 23:59 | disposition home or self-care (01) ==
LOC: LAB 10:28
PROVIDERS: PCP Nurse Practitioner Family; Visit Provider Nurse Practitioner Family
DX: K51.311 Ulcerative (chronic) rectosigmoiditis with rectal bleeding (principal)
CPT/HCPCS: 36415; 80053; 82728; 83540; 83550; 85025; 85651; 86140